=== PATIENT | male | born 1935 | race Caucasian/White ===

== ENCOUNTER 2016-06-20 09:35 | Inpatient (IN) | payer MEDICARE, BC ==
[~2016-06-20 09:35] MED LIST: Bisacodyl 5 MG Tab PO PRN; Lidocaine 1%/Sod Bicarbonate in NS 8.4% 1 ML Syringe IV PRN; Morphine 2 MG/ML Syringe IVPUSH PRN; Sodium Chloride 0.9% 10 ML Syringe FLUSH PRN
[2016-06-20] MEDS: Lactated Ringers 1,000 ML IV SCH ×2 (10:45→14:57)
--- NOTE | 2016-06-20 11:04 | PCM.PREANE ---
Preanesthetic Assessment - Anesthesia/Transfusion/Family Hx Anesthesia History: Prior Anesthesia Without Reaction Type of Anesthesia Reaction: Other (see below) (slow to wake up ) Family History of Anesthesia Reaction: No Transfusion History: No Prior Transfusion(s) Intubation History: Unknown - Review of Systems General: No Symptoms Pulmonary: No Symptoms Cardiovascular: No Symptoms Gastrointestinal: No symptoms Neurological: No Symptoms (stroke in past, no residual symptoms ) Other: Reports: Diabetes (BS 109 this AM ) - Physical Assessment NPO Status Date: 06/19/16 NPO Status Time: 22:30 Pulse: 62 O2 Sat by Pulse Oximetry: 96 Respiratory Rate: 16 Blood Pressure: 169/94 Temperature: 98.3 C Height: 1.78 m Weight: 89.811 kg ASA Class: 3 Mental Status: Alert & Oriented x3 Airway Class: Mallampati = 2 Dentition: Reports: Normal Dentition Thyro-Mental Finger Breadths: 3 Mouth Opening Finger Breadths: 5 ROM/Head Extension: Full Lungs: Clear to auscultation, Normal respiratory effort Cardiovascular: Regular Rate, Regular Rhythm - Lab Values: Laboratory Last Values APTT 40 SECONDS (22-36) H 06/15/16 13:55 POC Glucose 109 mg/dL (83-110) 06/20/16 10:53 MRSA (PCR) Negative 06/03/16 15:35 - Allergies Allergies/Adverse Reactions: Allergies Allergy/AdvReac Type Severity Reaction Status Date / Time No Known Allergies Allergy Verified 06/17/16 10:01 - Blood Blood Available: Yes Product(s) Available: PRBC (T&S drawn ) - Anesthesia Plan Beta Yamil: Metoprolol Med Last Dose Date: 06/20/16 Med Last Dose Time: 08:30 - Acknowledgements Anesthesia Type Planned: General Anesthesia Pt an Appropriate Candidate for the Planned Anesthesia: Yes Alternatives and Risks of Anesthesia Discussed w Pt/Guardian: Yes Pt/Guardian Understands and Agrees with Anesthesia Plan: Yes PreAnesthesia Questionnaire HEENT History: Reports: Impaired vision Other HEENT History: Wears glasses Cardiovascular History: Reports: Afib, High cholesterol, Hypertension Respiratory History: Reports: None Gastrointestinal History: Reports: None Genitourinary History: Reports: BPH, Other (see below) Other Genitourinary History: urinary retention 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 Musculoskeletal History: Reports: Osteoarthritis Other Musculoskeletal History: spinal stenosis Neurological History: Reports: CVA Psychiatric History: Reports: None Endocrine/Metabolic History: Reports: Diabetes, type II Hematologic History: Reports: Anemia Immunologic History: Reports: None Oncologic (Cancer) History: Reports: None Dermatologic History: Reports: None - Infectious Disease History Infectious Disease History: Reports: Chicken pox - Past Surgical History Head Surgeries/Procedures: Reports: None HEENT Surgical History: Reports: Cataract surgery, Naso-sinus surgery Cardiovascular Surgical History: Reports: None GI Surgical History: Endocrine Surgical History: Reports: None Musculoskeletal Surgical History: Reports: None, Other (see below) Other Musculoskeletal Surgeries/Procedures:: spinal stenosis surgery with hardware to low back - SUBSTANCE USE Smoking Status *Q: Never Smoker Tobacco Use Within Last Twelve Months: No Second Hand Smoke Exposure: No Days Per Week of Alcohol Use: 7 Number of Drinks Per Day: 1 Total Drinks Per Week: 7 Recreational Drug Use History: No - HOME MEDS Home Medications: Home Meds Ascorbate Calcium [Vitamin C] 500 mg PO DAILY 10/09/15 [History] Aspirin [Halfprin] 81 mg PO DAILY 10/09/15 [History] Dabigatran Etexilate Mesylate [Pradaxa] 150 mg PO BID 10/09/15 [History] Lisinopril 20 mg PO BID 10/09/15 [History] Multivit,Ther Iron,Ca,Fa & Min [Thera-M Caplet] 1 each PO DAILY 10/09/15 [ History] Tamsulosin [Flomax] 0.4 mg PO PCBREAKFAST 10/09/15 [History] glipiZIDE [Glucotrol] 5 mg PO DAILY 10/09/15 [History] Acetaminophen [Tylenol] 650 mg PO BID 10/21/15 [History] Diazepam [Valium] 5 mg PO Q6H PRN 06/17/16 [History] Hydrocodone/Acetaminophen [Dwarf 5-325] 1 tab PO Q4H PRN 06/17/16 [History] Metoprolol Tartrate [Metoprolol Tartrate] 12.5 mg PO DAILY 06/17/16 [History] Sennosides/Docusate Sodium [Senna-Docusate Sodium] 1 tab PO BID 06/17/16 [ History] - CURRENT (IN HOUSE) MEDS Current Meds: Current Medications Hydrocodone Bitart/Acetaminophen (Dwarf 325-5 Mg) 1 - 2 tab PO Q4H PRN PRN Reason: Pain Bisacodyl (Dulcolax) 5 mg PO DAILY PRN PRN Reason: Constipation Morphine Sulfate 8 mg/Epinephrine HCl 0.3 mg/Cefuroxime Sodium 750 mg/Ketorolac Tromethamine 30 mg/Sodium Chloride 27.9 ml 0 mg .XX ONETIME ONE Stop: 06/20/16 12:31 Docusate Sodium (Colace) 100 mg PO BID ERNIE Famotidine (Pepcid) 20 mg PO Q12H [facility] Lactated Ringer's (Ringers, Lactated) 1,000 mls @ 125 mls/hr IV ASDIRECTED [facility] Cefazolin Sodium/Dextrose 2 gm (/ Premix) 50 mls @ 100 mls/hr IV Q8H [facility] Stop: 06/20/16 23:14 Lidocaine/Sodium Bicarbonate (Buffered Lidocaine 1% In Ns 8.4%) 0.25 ml IV ONETIME PRN PRN Reason: Prior to IV Start Stop: 06/20/16 18:00 Magnesium Hydroxide (Milk Of Magnesia) 30 ml PO BID PRN PRN Reason: Constipation Morphine Sulfate (Morphine) 2 mg IVPUSH Q2H PRN PRN Reason: Breakthrough Pain Multivitamins (Thera) 1 each PO WITHBREAKFAST [facility] Naloxone HCl (Narcan) 0.1 mg IVPUSH Q5M PRN PRN Reason: Oversedation Stop: 06/20/16 14:16 Ondansetron HCl (Zofran) 4 mg IVPUSH Q6H PRN PRN Reason: Nausea/Vomiting Senna (Senna) 8.6 mg PO BID PRN PRN Reason: Constipation Sodium Chloride (Saline Flush) 10 ml FLUSH ASDIRECTED PRN PRN Reason: Keep Vein Open Stop: 06/20/16 18:00
[2016-06-20] MEDS ORDERED: fentaNYL 100 MCG/2 ML SDV IVPUSH PRN (11:16)
[2016-06-20] MEDS ORDERED: Ondansetron 4 MG/2 ML SDV IVPUSH PRN (11:16)
[2016-06-20] MEDS ORDERED: Bupivacaine 0.25% 30 ML SDV ONE (11:26)
[2016-06-20] MEDS ORDERED: ceFAZolin 1 GM Vial ONE ×2 (11:26→13:10)
[2016-06-20] MEDS ORDERED: Iodine/Sodium Iodide 2% Tincture 30 ML Bottle ONE (11:26)
--- NOTE | 2016-06-20 11:46 | PCM.CONS ---
H&P History of Present Illness - General Date of Service: 06/20/16 Admit Problem/Dx: Admission Diagnosis/Problem Admission Diagnosis/Problem Osteoarthritis of hip Source of Information: Patient, Family, Old records, Provider, RN notes reviewed History Limitations: Reports: Physical impairment - History of Present Illness Initial Comments - Free Text/Narative: This is an 83-year-old, white female, with past medical history of Afib on Pradaxa, Hypertension, HLD, OA/DJD, DM2, BPH, Hx/o Stroke, Hx/o Lumbar Spine Stenosis Surgery who underwent right total hip arthroplasty post operative day zero. Patient seems to be doing just fine. His pain is controlled. He denies any acute issues. However his blood pressure is considerably elevated with low heart rate in the 40s-60s. Hospital Medicine was consulted for postoperative care. Right Hip Pain Score (Numeric/FACES): 6 - Related Data Allergies/Adverse Reactions: Allergies Allergy/AdvReac Type Severity Reaction Status Date / Time No Known Allergies Allergy Verified 06/17/16 10:01 Home Medications: Home Meds Ascorbate Calcium [Vitamin C] 500 mg PO DAILY 10/09/15 [History] Aspirin [Halfprin] 81 mg PO DAILY 10/09/15 [History] Dabigatran Etexilate Mesylate [Pradaxa] 150 mg PO BID 10/09/15 [History] Lisinopril 20 mg PO BID 10/09/15 [History] Multivit,Ther Iron,Ca,Fa & Min [Thera-M Caplet] 1 each PO DAILY 10/09/15 [ History] Tamsulosin [Flomax] 0.4 mg PO PCBREAKFAST 10/09/15 [History] glipiZIDE [Glucotrol] 5 mg PO DAILY 10/09/15 [History] Acetaminophen [Tylenol] 650 mg PO BID 10/21/15 [History] Diazepam [Valium] 5 mg PO Q6H PRN 06/17/16 [History] Hydrocodone/Acetaminophen [[place] 5-325] 1 tab PO Q4H PRN 06/17/16 [History] Metoprolol Tartrate [Metoprolol Tartrate] 12.5 mg PO DAILY 06/17/16 [History] Sennosides/Docusate Sodium [Senna-Docusate Sodium] 1 tab PO BID 06/17/16 [ History] Enoxaparin [Lovenox] 80 mg SQ BID 06/20/16 [History] Past Medical History HEENT History: Reports: Impaired vision Other HEENT History: Wears glasses Cardiovascular History: Reports: Afib, High cholesterol, Hypertension Respiratory History: Reports: None Gastrointestinal History: Reports: None Genitourinary History: Reports: BPH, Other (see below) Other Genitourinary History: urinary retention 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 Musculoskeletal History: Reports: Osteoarthritis Other Musculoskeletal History: spinal stenosis Neurological History: Reports: CVA Psychiatric History: Reports: None Endocrine/Metabolic History: Reports: Diabetes, type II Hematologic History: Reports: Anemia Immunologic History: Reports: None Oncologic (Cancer) History: Reports: None Dermatologic History: Reports: None - Infectious Disease History Infectious Disease History: Reports: Chicken pox - Past Surgical History Head Surgeries/Procedures: Reports: None HEENT Surgical History: Reports: Cataract surgery, Naso-sinus surgery Cardiovascular Surgical History: Reports: None GI Surgical History: Endocrine Surgical History: Reports: None Musculoskeletal Surgical History: Reports: None, Other (see below) Other Musculoskeletal Surgeries/Procedures:: spinal stenosis surgery with hardware to low back Social & Family History - Family History Family Medical History: Noncontributory - Tobacco Use Smoking Status *Q: Never Smoker Packs/Tins Daily: 1.5 Used Tobacco, but Quit: Yes Month Tobacco Last Used: Around 1964 Second Hand Smoke Exposure: No - Alcohol Use Days Per Week of Alcohol Use: 7 Number of Drinks Per Day: 1 Total Drinks Per Week: 7 - Recreational Drug Use Recreational Drug Use: No - Living Situation & Occupation Living situation: Reports: , with spouse Occupation: retired H&P Review of Systems - Review of Systems: Review Of Systems: See Below General: Denies: fever, chills, malaise, weakness, fatigue HEENT: Reports: no symptoms Pulmonary: Denies: Shortness of Breath Cardiovascular: Denies: chest pain Gastrointestinal: Denies: Abdominal pain, Nausea, Vomiting Genitourinary: Reports: no symptoms Musculoskeletal: Reports: no symptoms Skin: Denies: cyanosis, rash Psychiatric: Denies: depression, anxiety, agitation, hallucinations Neurological: Reports: Difficulty Walking, Gait Disturbance. Denies: Confusion Hematologic/Lymphatic: Reports: no symptoms Immunologic: Reports: no symptoms Exam - Exam Exam: See Below - Vital Signs Vital Signs: Last Vital Signs Temp 98.3 C H 06/20/16 11:13 Pulse 62 06/20/16 11:13 Resp 16 06/20/16 11:13 BP 169/94 H 06/20/16 11:13 Pulse Ox 96 06/20/16 11:13 Weight: 89.811 kg - Exam General: alert, oriented, cooperative. No: mild distress HEENT: Conjunctiva clear, EOMI, Hearing intact, Mucosa moist & pink, Nares patent, Normal nasal septum, Posterior pharynx clear, Pupils equal, Pupils reactive Neck: supple, trachea midline, 2+ carotid pulse wo bruit, JVD Lungs: Clear to auscultation, Normal respiratory effort Cardiovascular: irregular rhythm, bradycardia, other (irregular rate) Abdomen: normal bowel sounds, soft. No: organomegaly (Male) Exam: Deferred Rectal (Males) Exam: Deferred Back Exam: normal inspection, decreased range of motion Extremities: normal inspection, normal pulses. No: clubbing, cyanosis, calf tenderness, edema Skin: warm, dry, intact Neuro Extensive - Mental Status: oriented x3, normal cognition, memory intact Neuro Extensive - Motor, Sensory, Reflexes: CN II-XII intact (limited but fairly intact), abnormal gait Psychiatric: alert, normal affect, normal mood - Patient Data Lab Results last 24 hrs: Laboratory Results - last 24 hr 06/20/16 Range/Units 10:53 POC Glucose 109 (83-110) mg/dL Consult PN Assessment/Plan POD#: 0 Procedures: Procedures ASSAY GLUCOSE BLOOD QUANT (10/08/15) ASSAY OF FREE THYROXINE (10/08/15) ASSAY OF MAGNESIUM (10/08/15) ASSAY OF TROPONIN QUANT (10/21/15) ASSAY THYROID STIM HORMONE (10/08/15) C-REACTIVE PROTEIN HS (10/08/15) CHEST X-RAY 1 VIEW FRONTAL (10/08/15) COMPLETE CBC AUTOMATED (10/08/15) COMPLETE CBC W/AUTO DIFF WBC (10/21/15) COMPREHEN METABOLIC PANEL (10/21/15) CT ABD & PELV W/CONTRAST (10/21/15) CT HEAD/BRAIN W/O DYE (10/08/15) CT THORAX W/DYE (10/21/15) DRAIN/INJ JOINT/BURSA W/O US (04/05/16) ELECTROCARDIOGRAM TRACING (10/21/15) EMERGENCY DEPT VISIT (10/21/15) EMERGENCY DEPT VISIT (09/10/15) EVALUATE SWALLOWING FUNCTION (10/08/15) EXTRACRANIAL BILAT STUDY (10/08/15) FIBRIN DEGRADATION QUANT (10/08/15) GAIT TRAINING THERAPY (10/08/15) GLUCOSE BLOOD TEST (10/08/15) GLYCOSYLATED HEMOGLOBIN TEST (10/08/15) HYDRATE IV INFUSION ADD-ON (10/21/15) HYDRATION IV INFUSION INIT (10/21/15) LIPID PANEL (10/08/15) METABOLIC PANEL TOTAL CA (10/08/15) MR ANGIOGRAPHY HEAD W/O DYE (10/08/15) MR ANGIOGRAPHY NECK W/DYE (10/08/15) MRI BRAIN STEM W/O & W/DYE (10/08/15) OT EVALUATION (10/08/15) PROTHROMBIN TIME (10/08/15) PT EVALUATION (10/08/15) ROUTINE VENIPUNCTURE (10/21/15) THERAPEUTIC ACTIVITIES (10/08/15) THROMBOPLASTIN TIME PARTIAL (10/08/15) TTE W/DOPPLER COMPLETE (10/08/15) URINALYSIS AUTO W/SCOPE (10/21/15) URINE CULTURE/COLONY COUNT (10/08/15) Problem List Initiated/Reviewed/Updated: Yes Plan: Assessment: Acute: Post-Operative Care State - Hypertensive with Bradycardic - Continue to monitor for hemodynamic instability S/p Right Total Hip Arthroplasty - Stable - DVT and Pain Management as per primary team Hx/o Chronic Knee Pain - Pain Management as per primary team Post Operative Bradycardia - HR in the 40-60s - Telemetry to monitor Post Operative Hypertension - Bumex 1mg IV x1 and Hydralazine 10 mg IVP x1 - Re-check Vitals in an hour Post-Operative Urinary Retention - Has hx/o BPH - Bumex 1 mg IVP, if no response will straight cath - Consider flomax/cardura Chronic: Atrial Fibrillation, HR controlled on Pradaxa HTN HLD OA/DJD DM2, BS controlled BPH Hx/o Stroke Hx/o Lumbar Spine Stenosis Surgery Plan: He is asymptomatic Routine AM labs No need for accu-check Continue home meds PT/OT consult IS q2 awake Thank you for the opportunity to participate in the management of this patient. Requesting Provider: Dr. Quiles Date Consult Requested: 06/20/16 Reason for Consult: Post-Operative Care Patient History Reviewed: Yes Admission H&P Reviewed: Yes Consult Result/Summary: Asymptomatic: Elevated BP and Slow Heart Rate
[2016-06-20] MEDS ORDERED: fentaNYL 100 MCG/2 ML SDV ONE (12:06)
[2016-06-20] MEDS ORDERED: Propofol 200 MG/20 ML SDV ONE (12:06)
[2016-06-20] MEDS ORDERED: Lidocaine 1% 4 ML ONE (12:07)
[2016-06-20] MEDS ORDERED: Rocuronium 50 MG/5 ML Vial ONE (12:08)
[2016-06-20] MEDS ORDERED: HYDROmorphone 0.5 MG/0.5 ML Syringe IVPUSH PRN (12:45)
[2016-06-20] MEDS ORDERED: Phenylephrine 1% 10 MG/ML SDV ONE (13:10)
[2016-06-20] MEDS ORDERED: Lactated Ringers 1,000 ML ONE (13:11)
[2016-06-20] MEDS ORDERED: Sodium Chloride 0.9% 100 ML ONE (13:11)
[2016-06-20] MEDS ORDERED: ePHEDrine/Normal Saline 25 MG/5 ML Syringe ONE (13:12)
[2016-06-20] MEDS ORDERED: HYDROmorphone 1 MG/ML Syringe ONE (13:21)
[2016-06-20] MEDS ORDERED: Ondansetron 4 MG/2 ML SDV ONE (13:34)
[2016-06-20] MEDS ORDERED: Neostigmine Methylsulfate 1 MG/ML 5 ML Syringe ONE (13:34)
[2016-06-20] MEDS ORDERED: Ketamine 500 mg/10 ML MDV ONE (13:45)
[2016-06-20] MEDS ORDERED: Diazepam 5 MG Tab PO PRN (13:48)
[2016-06-20] MEDS: Morphine 8 MG, EPINEPHrine 0.3 MG, Cefuroxime 750 MG, Ketorolac 30 MG, Sodium Chloride ... ONE ×10 (13:51→16:11)
[2016-06-20] MEDS ORDERED: Naloxone 0.4 MG/ML SDV IVPUSH PRN (14:00)
--- NOTE | 2016-06-20 14:39 | PCM.POSTAN ---
POST ANESTHESIA ASSESSMENT - MENTAL STATUS Mental Status: other (drowsy ) - VITAL SIGNS Pulse Rate: 79 SaO2: 98 Resp Rate: 11 Blood Pressure: 157/58 Temperature: 36.7 C - RESPIRATORY Respiratory Status: respiratory rate WNL, airway patent, O2 saturation stable - CARDIOVASCULAR CV Status: pulse rate WNL, blood pressure stable - GASTROINTESTINAL GI Status: no symptoms - PAIN Pain Score: 0 - POST OP HYDRATION Hydration Status: adequate & stable
--- NOTE | 2016-06-20 16:34 | CR ---
Pelvis and right hip: AP view of the pelvis was obtained as well as lateral view of the right hip. Right hip prosthesis is seen. Components are aligned. Soft tissue air is seen around the right hip compatible with recent surgical procedure. Previous lumbar spine surgery is noted. Joint space within the left hip is preserved. Vascular calcification is seen. Impression: 1. Satisfactory appearance of recently placed right hip prosthesis. 2. Other incidental findings as noted above. Diagnostic code #1
[2016-06-20] MEDS ORDERED: hydrALAZINE 20 MG/ML SDV IVPUSH ONE (16:40)
[2016-06-20] MEDS ORDERED: Bumetanide 1 MG/4 ML MDV IVPUSH ONE (16:40)
[2016-06-20] MEDS: Ondansetron 4 MG/2 ML SDV IVPUSH PRN (17:35)
[2016-06-20] MEDS ORDERED: Enoxaparin 80 MG/0.8 ML Syringe SUBCUT SCH (21:00)
[2016-06-20] MEDS ORDERED: Sennosides 8.6 MG Tab PO PRN (21:00)
[2016-06-20] MEDS ORDERED: Magnesium Hydroxide 400 MG/5 ML Susp 30 ML Cup PO PRN (21:00)
[2016-06-20] MEDS: ceFAZolin 2 GM in Premix Bag 1 BAG IV SCH (21:27)
[2016-06-20] MEDS: Docusate Sodium 100 MG Cap PO SCH (21:29)
[2016-06-20] MEDS: Dabigatran 75 MG Cap PO SCH (21:30)
[2016-06-20] MEDS: Famotidine 20 MG Tab PO SCH (21:30)
[2016-06-20] MEDS: Lisinopril 20 MG Tab PO SCH (21:30)
[2016-06-20] MEDS: Acetaminophen/HYDROcodone 325-5 MG Tab PO PRN (21:31)
[2016-06-21] MEDS: ceFAZolin 2 GM in Premix Bag 1 BAG IV SCH ×2 (04:07→12:22)
[2016-06-21] MEDS ORDERED: Multivitamins,Therapeutic Tab PO SCH (07:00)
[2016-06-21] MEDS: Acetaminophen/HYDROcodone 325-5 MG Tab PO PRN ×3 (07:48→18:48)
--- NOTE | 2016-06-21 08:19 | PCM48HPAN ---
Post Anesthesia Note - EVALUATION WITHIN 48HRS OF ANESTHETIC Vital Signs in Normal Range: Yes Patient Participated in Evaluation: Yes Respiratory Function Stable: Yes Airway Patent: Yes Cardiovascular Function Stable: Yes Hydration Status Stable: Yes Pain Control Satisfactory: Yes Nausea and Vomiting Control Satisfactory: Yes Mental Status Recovered: Yes - COMMENTS/OBSERVATIONS Free Text/Narrative:: Patient sitting up, and doing well. Patient denies any c/o at this time.
[2016-06-21] MEDS ORDERED: Metoprolol Tartrate 25 MG Tab PO SCH (09:00)
--- NOTE | 2016-06-21 09:02 | PCM.CONSN ---
- General Info Date of Service: 06/21/16 Admission Dx/Problem (Free Text): Admission Diagnosis/Problem Admission Diagnosis/Problem Osteoarthritis of hip POD #[address] Quiles Was hypertensive and bradycardic out of surgery to the floor yesterday; recovered last evening and VSS since around 1800 last night. He is off of oxygen , doing well. Pain controlled. Eating without n/v. He was straight cathed x 2 last night, once with 1,000cc out. He did receive bumex x 1 IV and flomax last evening. Functional Status: Reports: pain controlled, tolerating diet, ambulating. Denies: urinating (retention) - Review of Systems General: Reports: No Symptoms HEENT: Reports: no symptoms Pulmonary: Reports: no symptoms Cardiovascular: Reports: No Symptoms Gastrointestinal: Reports: No symptoms Genitourinary: Reports: other (urinary retention) Musculoskeletal: Reports: leg pain Skin: Reports: no symptoms Neurological: Reports: No Symptoms Psychiatric: Reports: no symptoms - Patient Data Vitals - most recent: Last Vital Signs Temp 97.7 F 06/21/16 08:05 Pulse 93 06/21/16 08:05 Resp 16 06/21/16 08:05 BP 102/59 L 06/21/16 08:05 Pulse Ox 97 06/21/16 08:05 Weight - most recent: 191 lb 1.6 oz I&O - last 24 hours: Intake & Output 06/20/16 06/21/16 06/21/16 22:59 06:59 14:59 Intake Total 250 750 Output Total 950 1250 Balance -700 -500 Lab Results last 24 hrs: Laboratory Results - last 24 hr 06/20/16 06/20/16 06/21/16 Range/Units 10:40 10:53 06:10 WBC 12.92 H (4.23-9.07) K/mm3 RBC 4.03 L (4.63-6.08) M/mm3 Hgb 11.9 L (13.7-17.5) gm/L Hct 36.3 L (40.1-51.0) % MCV 90.1 (79.0-92.2) fl MCH 29.5 (25.7-32.2) pg MCHC 32.8 (32.2-35.5) g/dl RDW Std Deviation 54.2 H (35.1-43.9) fL Plt Count 297 (163-337) K/mm3 MPV 10.3 (9.4-12.3) fl Neut % (Auto) 82.1 H (34.0-67.9) % Lymph % (Auto) 8.0 L (21.8-53.1) % [place] % (Auto) 9.6 (5.3-12.2) % Eos % (Auto) 0 L (0.8-7.0) Baso % (Auto) 0.1 (0.1-1.2) % Neut # (Auto) 10.62 H (1.78-5.38) K/mm3 Lymph # (Auto) 1.03 L (1.32-3.57) K/mm3 [place] # (Auto) 1.24 H (0.30-0.82) K/mm3 Eos # (Auto) 0.00 L (0.04-0.54) K/mm3 Baso # (Auto) 0.01 (0.01-0.08) K/mm3 Manual Slide Review Normal smear Sodium (136-145) mEq/L Potassium (3.5-5.1) mEq/L Chloride (98-107) mEq/L Carbon Dioxide (21-32) mEq/L Anion Gap (5-15) BUN (7-18) mg/dL Creatinine (0.7-1.3) mg/dL Est Cr Clr Drug Dosing mL/min Estimated GFR (MDRD) (>60) mL/min BUN/Creatinine Ratio (14-18) Glucose (83-115) mg/dL POC Glucose 109 (83-110) mg/dL Calcium (8.5-10.1) mg/dL Total Bilirubin (0.2-1.0) mg/dL AST (15-37) U/L ALT (16-63) U/L Alkaline Phosphatase (46-116) U/L Total Protein (6.4-8.2) g/dl Albumin (3.4-5.0) g/dl Globulin gm/dL Albumin/Globulin Ratio (1-2) Blood Type A POSITIVE Gel Antibody Screen Negative 06/21/16 Range/Units 06:10 WBC (4.23-9.07) K/mm3 RBC (4.63-6.08) M/mm3 Hgb (13.7-17.5) gm/L Hct (40.1-51.0) % MCV (79.0-92.2) fl MCH (25.7-32.2) pg MCHC (32.2-35.5) g/dl RDW Std Deviation (35.1-43.9) fL Plt Count (163-337) K/mm3 MPV (9.4-12.3) fl Neut % (Auto) (34.0-67.9) % Lymph % (Auto) (21.8-53.1) % [place] % (Auto) (5.3-12.2) % Eos % (Auto) (0.8-7.0) Baso % (Auto) (0.1-1.2) % Neut # (Auto) (1.78-5.38) K/mm3 Lymph # (Auto) (1.32-3.57) K/mm3 [place] # (Auto) (0.30-0.82) K/mm3 Eos # (Auto) (0.04-0.54) K/mm3 Baso # (Auto) (0.01-0.08) K/mm3 Manual Slide Review Sodium 138 (136-145) mEq/L Potassium 4.1 (3.5-5.1) mEq/L Chloride 101 (98-107) mEq/L Carbon Dioxide 25 (21-32) mEq/L Anion Gap 16.1 H (5-15) BUN 18 (7-18) mg/dL Creatinine 1.3 (0.7-1.3) mg/dL Est Cr Clr Drug Dosing 46.01 mL/min Estimated GFR (MDRD) 53 (>60) mL/min BUN/Creatinine Ratio 13.8 L (14-18) Glucose 165 H (83-115) mg/dL POC Glucose (83-110) mg/dL Calcium 8.7 (8.5-10.1) mg/dL Total Bilirubin 0.5 (0.2-1.0) mg/dL AST 31 (15-37) U/L ALT 35 (16-63) U/L Alkaline Phosphatase 89 (46-116) U/L Total Protein 6.6 (6.4-8.2) g/dl Albumin 3.2 L (3.4-5.0) g/dl Globulin 3.4 gm/dL Albumin/Globulin Ratio 0.9 L (1-2) Blood Type Gel Antibody Screen Med Orders - Current: Current Medications Hydrocodone Bitart/Acetaminophen ([place] 325-5 Mg) 1 - 2 tab PO Q4H PRN PRN Reason: Pain Last Admin: 06/21/16 07:48 Dose: 2 tab Ascorbic Acid (Vitamin C) 500 mg PO DAILY [facility] Aspirin (Halfprin) 81 mg PO DAILY [facility] Bisacodyl (Dulcolax) 5 mg PO DAILY PRN PRN Reason: Constipation Dabigatran (Pradaxa) 150 mg PO BID [facility] Last Admin: 06/20/16 21:30 Dose: 150 mg Diazepam (Valium.) 5 mg PO Q6H PRN PRN Reason: muscle spasms Docusate Sodium (Colace) 100 mg PO BID [facility] Last Admin: 06/20/16 21:29 Dose: Not Given Famotidine (Pepcid) 20 mg PO Q12H [facility] Last Admin: 06/20/16 21:30 Dose: 20 mg Glipizide (Glucotrol) 5 mg PO DAILY [facility] Cefazolin Sodium/Dextrose 2 gm (/ Premix) 50 mls @ 100 mls/hr IV Q8H [facility] Stop: 06/21/16 11:59 Last Admin: 06/21/16 04:07 Dose: 100 mls/hr Lisinopril (Prinivil) 20 mg PO BID [facility] Last Admin: 06/20/16 21:30 Dose: 20 mg Magnesium Hydroxide (Milk Of Magnesia) 30 ml PO BID PRN PRN Reason: Constipation Metoprolol Tartrate (Lopressor) 12.5 mg PO DAILY [facility] Morphine Sulfate (Morphine) 2 mg IVPUSH Q2H PRN PRN Reason: Breakthrough Pain Ondansetron HCl (Zofran) 4 mg IVPUSH Q6H PRN PRN Reason: Nausea/Vomiting Last Admin: 06/20/16 17:35 Dose: 4 mg Senna (Senna) 8.6 mg PO BID PRN PRN Reason: Constipation Senna/Docusate Sodium (Senna Plus) 1 tab PO BID [facility] Last Admin: 06/20/16 21:30 Dose: Not Given Tamsulosin HCl (Flomax) 0.4 mg PO PCBREAKFAST [facility] Vit A/Vit C/Vit E/Selen/Cu/Zn/Lutei (Icaps Mv) 1 tab PO DAILY [facility] Discontinued Medications Bumetanide (Bumex) 1 mg IVPUSH ONETIME ONE Stop: 06/20/16 16:41 Last Admin: 06/20/16 17:13 Dose: 1 mg Bupivacaine HCl (Marcaine 0.25%) Confirm Administered Dose 30 ml .ROUTE .STK- MED ONE Stop: 06/20/16 11:27 Last Admin: 06/20/16 13:53 Dose: 30 ml Cefazolin Sodium (Ancef) Confirm Administered Dose 2 gm .ROUTE .STK-MED ONE Stop: 06/20/16 11:27 Last Admin: 06/20/16 13:47 Dose: 2 gm Cefazolin Sodium (Ancef) Confirm Administered Dose 2 gm .ROUTE .STK-MED ONE Stop: 06/20/16 13:11 Morphine Sulfate 8 mg/Epinephrine HCl 0.3 mg/Cefuroxime Sodium 750 mg/Ketorolac Tromethamine 30 mg/Sodium Chloride 27.9 ml 0 mg .XX ONETIME ONE Stop: 06/20/16 12:31 Last Admin: 06/20/16 16:11 Dose: Not Given Enoxaparin Sodium (Lovenox) 80 mg SUBCUT BID ERNIE Ephedrine Sulfate (Ephedrine In Ns) Confirm Administered Dose 25 mg .ROUTE .STK- MED ONE Stop: 06/20/16 13:13 Fentanyl (Sublimaze) 50 mcg IVPUSH Q5M PRN PRN Reason: Pain Stop: 06/20/16 18:00 Fentanyl (Sublimaze) Confirm Administered Dose 100 mcg .ROUTE .STK-MED ONE Stop: 06/20/16 12:07 Glycopyrrolate () Confirm Administered Dose 1 mg .ROUTE .STK-MED ONE Stop: 06/20/16 13:35 Hydralazine HCl (Apresoline) 10 mg IVPUSH ONETIME ONE Stop: 06/20/16 16:41 Last Admin: 06/20/16 17:13 Dose: 10 mg Hydromorphone HCl (Dilaudid) 0.5 mg IVPUSH Q15M PRN PRN Reason: severe pain Stop: 06/20/16 13:01 Hydromorphone HCl (Dilaudid) Confirm Administered Dose 1 mg .ROUTE .STK-MED ONE Stop: 06/20/16 13:22 Lactated Ringer's (Ringers, Lactated) 1,000 mls @ 125 mls/hr IV ASDIRECTED [facility] Last Admin: 06/20/16 14:57 Dose: 125 mls/hr Lidocaine HCl (Xylocaine-Mpf 1%) Confirm Administered Dose 4 mls @ as directed .ROUTE .STK-MED ONE Stop: 06/20/16 12:08 Sodium Chloride (Normal Saline) Confirm Administered Dose 100 mls @ as directed .ROUTE .STK-MED ONE Stop: 06/20/16 13:12 Lactated Ringer's (Ringers, Lactated) Confirm Administered Dose 1,000 mls @ as directed .ROUTE .STK-MED ONE Stop: 06/20/16 13:12 Iodine (Iodine 2% Mild Tincture) Confirm Administered Dose 30 ml .ROUTE .STK- MED ONE Stop: 06/20/16 11:27 Last Admin: 06/20/16 13:41 Dose: 18 ml Ketamine HCl (Ketalar) Confirm Administered Dose 500 mg .ROUTE .STK-MED ONE Stop: 06/20/16 13:46 Lidocaine/Sodium Bicarbonate (Buffered Lidocaine 1% In Ns 8.4%) 0.25 ml IV ONETIME PRN PRN Reason: Prior to IV Start Stop: 06/20/16 18:00 Last Admin: 06/20/16 10:44 Dose: 0.25 ml Multivitamins (Thera) 1 each PO WITHBREAKFAST [facility] Naloxone HCl (Narcan) 0.1 mg IVPUSH Q5M PRN PRN Reason: Oversedation Stop: 06/20/16 14:16 Neostigmine Methylsulfate (Neostigmine) Confirm Administered Dose 5 mg .ROUTE .STK-MED ONE Stop: 06/20/16 13:35 Ondansetron HCl (Zofran) 4 mg IVPUSH ONETIME PRN PRN Reason: Nausea/Vomiting Stop: 06/20/16 18:00 Ondansetron HCl (Zofran) Confirm Administered Dose 4 mg .ROUTE .STK-MED ONE Stop: 06/20/16 13:35 Phenylephrine HCl (Lonnie-Synephrine) Confirm Administered Dose 10 mg .ROUTE .STK- MED ONE Stop: 06/20/16 13:11 Propofol (Diprivan 20 Ml) Confirm Administered Dose 200 mg .ROUTE .STK-MED ONE Stop: 06/20/16 12:07 Rocuronium [place] (Zemuron) Confirm Administered Dose 50 mg .ROUTE .STK-MED ONE Stop: 06/20/16 12:09 Sodium Chloride (Saline Flush) 10 ml FLUSH ASDIRECTED PRN PRN Reason: Keep Vein Open Stop: 06/20/16 18:00 Tranexamic Acid (Cyklokapron) Confirm Administered Dose 1,000 mg .ROUTE .STK- MED ONE Stop: 06/20/16 11:27 Last Admin: 06/20/16 13:57 Dose: 1,000 mg - Exam Quality Assessment: DVT prophylaxis General: alert, oriented, cooperative, no acute distress HEENT: Pupils equal, Pupils reactive, EOMI, Mucous membr. moist/pink Neck: supple Lungs: Clear to auscultation, Normal respiratory effort Cardiovascular: Irregular Rhythm Abdomen: bowel sounds present, soft, no tenderness, no distension (Male) Exam: Deferred Extremities: no edema, no calf tenderness, other (teds and scd's bilat) Peripheral Pulses: 1+: dorsalis pedis (L), dorsalis pedis (R) Skin: warm, dry Neurological: no new focal deficit Psy/Mental Status: alert, normal affect, normal mood Consult PN Assessment/Plan POD#: 1 Procedures: Procedures ASSAY GLUCOSE BLOOD QUANT (10/08/15) ASSAY OF FREE THYROXINE (10/08/15) ASSAY OF MAGNESIUM (10/08/15) ASSAY OF TROPONIN QUANT (10/21/15) ASSAY THYROID STIM HORMONE (10/08/15) C-REACTIVE PROTEIN HS (10/08/15) CHEST X-RAY 1 VIEW FRONTAL (10/08/15) COMPLETE CBC AUTOMATED (10/08/15) COMPLETE CBC W/AUTO DIFF WBC (10/21/15) COMPREHEN METABOLIC PANEL (10/21/15) CT ABD & PELV W/CONTRAST (10/21/15) CT HEAD/BRAIN W/O DYE (10/08/15) CT THORAX W/DYE (10/21/15) DRAIN/INJ JOINT/BURSA W/O US (04/05/16) ELECTROCARDIOGRAM TRACING (10/21/15) EMERGENCY DEPT VISIT (10/21/15) EMERGENCY DEPT VISIT (09/10/15) EVALUATE SWALLOWING FUNCTION (10/08/15) EXTRACRANIAL BILAT STUDY (10/08/15) FIBRIN DEGRADATION QUANT (10/08/15) GAIT TRAINING THERAPY (10/08/15) GLUCOSE BLOOD TEST (10/08/15) GLYCOSYLATED HEMOGLOBIN TEST (10/08/15) HYDRATE IV INFUSION ADD-ON (10/21/15) HYDRATION IV INFUSION INIT (10/21/15) LIPID PANEL (10/08/15) METABOLIC PANEL TOTAL CA (10/08/15) MR ANGIOGRAPHY HEAD W/O DYE (10/08/15) MR ANGIOGRAPHY NECK W/DYE (10/08/15) MRI BRAIN STEM W/O & W/DYE (10/08/15) OT EVALUATION (10/08/15) PROTHROMBIN TIME (10/08/15) PT EVALUATION (10/08/15) ROUTINE VENIPUNCTURE (10/21/15) THERAPEUTIC ACTIVITIES (10/08/15) THROMBOPLASTIN TIME PARTIAL (10/08/15) TTE W/DOPPLER COMPLETE (10/08/15) URINALYSIS AUTO W/SCOPE (10/21/15) URINE CULTURE/COLONY COUNT (10/08/15) (1) S/P total hip arthroplasty SNOMED Code(s): 502204483487, 924273516054 Code(s): Z96.649 - PRESENCE OF UNSPECIFIED ARTIFICIAL HIP JOINT Priority: High Current Visit: Yes Qualifiers: Laterality: right Qualified Code(s): Z96.641 - Presence of right artificial hip joint (2) Osteoarthritis SNOMED Code(s): 470093046 Code(s): M19.90 - UNSPECIFIED OSTEOARTHRITIS, UNSPECIFIED SITE Priority: High Current Visit: Yes Qualifiers: Osteoarthritis location: hip Osteoarthritis type: primary Laterality: right Qualified Code(s): M16.11 - Unilateral primary osteoarthritis, right hip (3) Urinary retention SNOMED Code(s): 530358853 Code(s): R33.9 - RETENTION OF URINE, UNSPECIFIED Priority: High Current Visit: Yes (4) Afib SNOMED Code(s): 30368157 Code(s): I48.91 - UNSPECIFIED ATRIAL FIBRILLATION Priority: Medium Current Visit: No Qualifiers: Atrial fibrillation type: chronic Qualified Code(s): I48.2 - Chronic atrial fibrillation (5) HTN (hypertension) SNOMED Code(s): 72847561 Code(s): I10 - ESSENTIAL (PRIMARY) HYPERTENSION Priority: Medium Current Visit: No Qualifiers: Hypertension type: essential hypertension Qualified Code(s): I10 - Essential (primary) hypertension (6) HLD (hyperlipidemia) SNOMED Code(s): 31568530 Code(s): E78.5 - HYPERLIPIDEMIA, UNSPECIFIED Priority: Medium Current Visit: No Qualifiers: Hyperlipidemia type: unspecified Qualified Code(s): E78.5 - Hyperlipidemia , unspecified (7) Type 2 diabetes mellitus SNOMED Code(s): 60940100 Code(s): E11.9 - TYPE 2 DIABETES MELLITUS WITHOUT COMPLICATIONS Priority: Medium Current Visit: No Qualifiers: Diabetes mellitus complication status: without complication Diabetes mellitus fdc insulin use: without fdc use Qualified Code(s): E11.9 - Type 2 diabetes mellitus without complications (8) History of CVA (cerebrovascular accident) SNOMED Code(s): 187169728 Code(s): Z86.73 - PRSNL HX OF TIA (TIA), AND CEREB INFRC W/O RESID DEFICITS Priority: Medium Current Visit: No (9) Hx of lumbosacral spine surgery SNOMED Code(s): 319020645 Code(s): Z98.890 - OTHER SPECIFIED POSTPROCEDURAL STATES Priority: Medium Current Visit: No Problem List Initiated/Reviewed/Updated: Yes Plan: I/P: S/P Rt YANET with Dr. Quiles: POD #1 -Pain management and DVT prophyax per primary team, Orthopedics -PT/OT -IS, C&DB -HGB 11.9 today -VSS now; postop bradycardia with hypertension- resolved last evening Urinary retention -Flomax and diuretic dose last evening; straight cath x 2 last evening -Cont close monitoring -Consider DC with prophylactic abx to prevent AUTI postoperative related to retention Chronic conditions- stable and cont home meds/tx A-Fib on pradaxa HTN HLD DM- sugars stable- 165 Hx of BPH now with postop urinary retention- recommend dc home with flomax BID x 2-4 weeks and follow up with PCP/Urology Hx CVA Hx lumbar surgery for stenosis Other: GI prophylax CM/SW for dc planning OK for dc home today if voiding spontaneously Patient is Full Code
[2016-06-21] MEDS: Docusate Sodium 100 MG Cap PO SCH ×2 (09:48→22:03)
[2016-06-21] MEDS: Tamsulosin 0.4 MG Cap.ER PO SCH ×2 (09:49→18:46)
[2016-06-21] MEDS: Lisinopril 20 MG Tab PO SCH ×2 (09:49→22:06)
[2016-06-21] MEDS: Multivitamins with Minerals/Folic Acid/Lutein/Zeaxanth Tab PO SCH (09:49)
[2016-06-21] MEDS: Aspirin 81 MG Tab.EC PO SCH (09:50)
[2016-06-21] MEDS: Famotidine 20 MG Tab PO SCH ×2 (09:50→22:02)
[2016-06-21] MEDS: Dabigatran 75 MG Cap PO SCH ×2 (09:51→22:02)
[2016-06-21] MEDS: glipiZIDE 5 MG Tab PO SCH (09:51)
[2016-06-21] MEDS: Ascorbic Acid 500 MG Tab PO SCH (09:51)
[2016-06-21] MEDS ORDERED: Tamsulosin 0.4 MG Cap.ER PO SCH (10:00)
[2016-06-21] MEDS ORDERED: Pneumococcal 13-Valent Conjugate Vaccine 0.5 ML Syringe IM ONE (13:40)
[2016-06-21] MEDS ORDERED: Bumetanide 1 MG/4 ML MDV IVPUSH ONE (14:15)
[2016-06-21] MEDS: Metoprolol Tartrate 25 MG Tab PO SCH (22:04)
[2016-06-22] MEDS ORDERED: Bumetanide 1 MG/4 ML MDV IVPUSH ONE (05:00)
[2016-06-22] MEDS: Acetaminophen/HYDROcodone 325-5 MG Tab PO PRN ×2 (07:03→18:16)
--- NOTE | 2016-06-22 08:44 | PCM.CONSN ---
- General Info Date of Service: 06/22/16 Admission Dx/Problem (Free Text): Admission Diagnosis/Problem Admission Diagnosis/Problem Osteoarthritis of hip POD #[address] Etta MCCLURE; no further bradycardia or HTN noted since return from PACU. Voiding independently this morning Labs pending at time of note- CBC, BMP and UA- obtained for recurrent urinary retention Working with PT, slow movements but doing ok Functional Status: Reports: pain controlled, tolerating diet, ambulating, urinating. Denies: new symptoms - Review of Systems General: Reports: No Symptoms HEENT: Reports: no symptoms Pulmonary: Reports: no symptoms Cardiovascular: Reports: No Symptoms Gastrointestinal: Reports: No symptoms Genitourinary: Reports: no symptoms Musculoskeletal: Reports: leg pain Skin: Reports: no symptoms Neurological: Reports: Other (hx of CVA; slowed speech and slowed movmements but chronic) Psychiatric: Reports: no symptoms - Patient Data Vitals - most recent: Last Vital Signs Temp 98.1 F 06/22/16 08:00 Pulse 86 06/22/16 08:00 Resp 16 06/22/16 08:00 BP 110/58 L 06/22/16 08:00 Pulse Ox 95 06/22/16 08:00 Weight - most recent: 188 lb 6.4 oz I&O - last 24 hours: Intake & Output 06/21/16 06/22/16 06/22/16 22:59 06:59 14:59 Intake Total 810 650 Output Total 350 200 Balance 460 450 Med Orders - Current: Current Medications Hydrocodone Bitart/Acetaminophen ([place] 325-5 Mg) 1 - 2 tab PO Q4H PRN PRN Reason: Pain Last Admin: 06/22/16 07:03 Dose: 2 tab Ascorbic Acid (Vitamin C) 500 mg PO DAILY [facility] Last Admin: 06/21/16 09:51 Dose: 500 mg Aspirin (Halfprin) 81 mg PO DAILY [facility] Last Admin: 06/21/16 09:50 Dose: 81 mg Bisacodyl (Dulcolax) 5 mg PO DAILY PRN PRN Reason: Constipation Dabigatran (Pradaxa) 150 mg PO BID [facility] Last Admin: 06/21/16 22:02 Dose: 150 mg Diazepam (Valium.) 5 mg PO Q6H PRN PRN Reason: muscle spasms Docusate Sodium (Colace) 100 mg PO BID [facility] Last Admin: 06/21/16 22:03 Dose: 100 mg Doxazosin Mesylate (Cardura) 4 mg PO DAILY [facility] Famotidine (Pepcid) 20 mg PO Q12H [facility] Last Admin: 06/21/16 22:02 Dose: 20 mg Glipizide (Glucotrol) 5 mg PO DAILY [facility] Last Admin: 06/21/16 09:51 Dose: 5 mg Lisinopril (Prinivil) 20 mg PO BID [facility] Last Admin: 06/21/16 22:06 Dose: 20 mg Magnesium Hydroxide (Milk Of Magnesia) 30 ml PO BID PRN PRN Reason: Constipation Metoprolol Tartrate (Lopressor) 12.5 mg PO BID [facility] Last Admin: 06/21/16 22:04 Dose: 12.5 mg Morphine Sulfate (Morphine) 2 mg IVPUSH Q2H PRN PRN Reason: Breakthrough Pain Ondansetron HCl (Zofran) 4 mg IVPUSH Q6H PRN PRN Reason: Nausea/Vomiting Last Admin: 06/20/16 17:35 Dose: 4 mg Senna (Senna) 8.6 mg PO BID PRN PRN Reason: Constipation Senna/Docusate Sodium (Senna Plus) 1 tab PO BID [facility] Last Admin: 06/21/16 22:03 Dose: 1 tab [facility] Last Admin: 06/21/16 18:46 Dose: 0.4 mg Vit A/Vit C/Vit E/Selen/Cu/Zn/Lutei (Icaps Mv) 1 tab PO DAILY [facility] Last Admin: 06/21/16 09:49 Dose: 1 tab Discontinued Medications Bumetanide (Bumex) 1 mg IVPUSH ONETIME ONE Stop: 06/20/16 16:41 Last Admin: 06/20/16 17:13 Dose: 1 mg Bumetanide (Bumex) 0.25 mg IVPUSH ONETIME ONE Stop: 06/21/16 14:16 Last Admin: 06/21/16 14:57 Dose: 0.25 mg Bumetanide (Bumex) 1 mg IVPUSH ONETIME ONE Stop: 06/22/16 05:01 Last Admin: 06/22/16 04:06 Dose: 1 mg Bupivacaine HCl (Marcaine 0.25%) Confirm Administered Dose 30 ml .ROUTE .STK- MED ONE Stop: 06/20/16 11:27 Last Admin: 06/20/16 13:53 Dose: 30 ml Cefazolin Sodium (Ancef) Confirm Administered Dose 2 gm .ROUTE .STK-MED ONE Stop: 06/20/16 11:27 Last Admin: 06/20/16 13:47 Dose: 2 gm Cefazolin Sodium (Ancef) Confirm Administered Dose 2 gm .ROUTE .STK-MED ONE Stop: 06/20/16 13:11 Morphine Sulfate 8 mg/Epinephrine HCl 0.3 mg/Cefuroxime Sodium 750 mg/Ketorolac Tromethamine 30 mg/Sodium Chloride 27.9 ml 0 mg .XX ONETIME ONE Stop: 06/20/16 12:31 Last Admin: 06/20/16 16:11 Dose: Not Given Enoxaparin Sodium (Lovenox) 80 mg SUBCUT BID ERNIE Ephedrine Sulfate (Ephedrine In Ns) Confirm Administered Dose 25 mg .ROUTE .STK- MED ONE Stop: 06/20/16 13:13 Fentanyl (Sublimaze) 50 mcg IVPUSH Q5M PRN PRN Reason: Pain Stop: 06/20/16 18:00 Fentanyl (Sublimaze) Confirm Administered Dose 100 mcg .ROUTE .STK-MED ONE Stop: 06/20/16 12:07 Glycopyrrolate () Confirm Administered Dose 1 mg .ROUTE .STK-MED ONE Stop: 06/20/16 13:35 Hydralazine HCl (Apresoline) 10 mg IVPUSH ONETIME ONE Stop: 06/20/16 16:41 Last Admin: 06/20/16 17:13 Dose: 10 mg Hydromorphone HCl (Dilaudid) 0.5 mg IVPUSH Q15M PRN PRN Reason: severe pain Stop: 06/20/16 13:01 Hydromorphone HCl (Dilaudid) Confirm Administered Dose 1 mg .ROUTE .STK-MED ONE Stop: 06/20/16 13:22 Lactated Ringer's (Ringers, Lactated) 1,000 mls @ 125 mls/hr IV ASDIRECTED ERNIE Last Admin: 06/20/16 14:57 Dose: 125 mls/hr Cefazolin Sodium/Dextrose 2 gm (/ Premix) 50 mls @ 100 mls/hr IV Q8H [facility] Stop: 06/21/16 11:59 Last Admin: 06/21/16 12:22 Dose: 100 mls/hr Lidocaine HCl (Xylocaine-Mpf 1%) Confirm Administered Dose 4 mls @ as directed .ROUTE .STK-MED ONE Stop: 06/20/16 12:08 Sodium Chloride (Normal Saline) Confirm Administered Dose 100 mls @ as directed .ROUTE .STK-MED ONE Stop: 06/20/16 13:12 Lactated Ringer's (Ringers, Lactated) Confirm Administered Dose 1,000 mls @ as directed .ROUTE .STK-MED ONE Stop: 06/20/16 13:12 Iodine (Iodine 2% Mild Tincture) Confirm Administered Dose 30 ml .ROUTE .STK- MED ONE Stop: 06/20/16 11:27 Last Admin: 06/20/16 13:41 Dose: 18 ml Ketamine HCl (Ketalar) Confirm Administered Dose 500 mg .ROUTE .STK-MED ONE Stop: 06/20/16 13:46 Lidocaine/Sodium Bicarbonate (Buffered Lidocaine 1% In Ns 8.4%) 0.25 ml IV ONETIME PRN PRN Reason: Prior to IV Start Stop: 06/20/16 18:00 Last Admin: 06/20/16 10:44 Dose: 0.25 ml Metoprolol Tartrate (Lopressor) 12.5 mg PO DAILY [facility] Last Admin: 06/21/16 09:50 Dose: 12.5 mg Multivitamins (Thera) 1 each PO WITHBREAKFAST [facility] Naloxone HCl (Narcan) 0.1 mg IVPUSH Q5M PRN PRN Reason: Oversedation Stop: 06/20/16 14:16 Neostigmine Methylsulfate (Neostigmine) Confirm Administered Dose 5 mg .ROUTE .STK-MED ONE Stop: 06/20/16 13:35 Ondansetron HCl (Zofran) 4 mg IVPUSH ONETIME PRN PRN Reason: Nausea/Vomiting Stop: 06/20/16 18:00 Ondansetron HCl (Zofran) Confirm Administered Dose 4 mg .ROUTE .STK-MED ONE Stop: 06/20/16 13:35 Phenylephrine HCl (Lonnie-Synephrine) Confirm Administered Dose 10 mg .ROUTE .STK- MED ONE Stop: 06/20/16 13:11 Pneumococcal 13-Valent Conj Vacc (Prevnar 13) 0.5 ml IM .ONCE ONE Stop: 06/21/16 13:41 Propofol (Diprivan 20 Ml) Confirm Administered Dose 200 mg .ROUTE .STK-MED ONE Stop: 06/20/16 12:07 Rocuronium [place] (Zemuron) Confirm Administered Dose 50 mg .ROUTE .STK-MED ONE Stop: 06/20/16 12:09 Sodium Chloride (Saline Flush) 10 ml FLUSH ASDIRECTED PRN PRN Reason: Keep Vein Open Stop: 06/20/16 18:00 Tamsulosin HCl (Flomax) 0.4 mg PO PCBREAKFAST ERNIE Tranexamic Acid (Cyklokapron) Confirm Administered Dose 1,000 mg .ROUTE .STK- MED ONE Stop: 06/20/16 11:27 Last Admin: 06/20/16 13:57 Dose: 1,000 mg - Exam Quality Assessment: DVT prophylaxis General: alert, oriented, cooperative, no acute distress HEENT: Pupils equal, Pupils reactive, EOMI, Mucous membr. moist/pink Neck: supple Lungs: Clear to auscultation, Normal respiratory effort Cardiovascular: Irregular Rhythm Abdomen: bowel sounds present, soft, no tenderness, no distension (Male) Exam: Deferred Extremities: no edema, no calf tenderness, other (teds) Peripheral Pulses: 1+: dorsalis pedis (L), dorsalis pedis (R) Skin: warm, dry, intact Neurological: no new focal deficit, other (slowed speech and movements ) Psy/Mental Status: alert, normal affect, normal mood Consult PN Assessment/Plan POD#: 2 Procedures: Procedures ASSAY GLUCOSE BLOOD QUANT (10/08/15) ASSAY OF FREE THYROXINE (10/08/15) ASSAY OF MAGNESIUM (10/08/15) ASSAY OF TROPONIN QUANT (10/21/15) ASSAY THYROID STIM HORMONE (10/08/15) C-REACTIVE PROTEIN HS (10/08/15) CHEST X-RAY 1 VIEW FRONTAL (10/08/15) COMPLETE CBC AUTOMATED (10/08/15) COMPLETE CBC W/AUTO DIFF WBC (10/21/15) COMPREHEN METABOLIC PANEL (10/21/15) CT ABD & PELV W/CONTRAST (10/21/15) CT HEAD/BRAIN W/O DYE (10/08/15) CT THORAX W/DYE (10/21/15) DRAIN/INJ JOINT/BURSA W/O US (04/05/16) ELECTROCARDIOGRAM TRACING (10/21/15) EMERGENCY DEPT VISIT (10/21/15) EMERGENCY DEPT VISIT (09/10/15) EVALUATE SWALLOWING FUNCTION (10/08/15) EXTRACRANIAL BILAT STUDY (10/08/15) FIBRIN DEGRADATION QUANT (10/08/15) GAIT TRAINING THERAPY (10/08/15) GLUCOSE BLOOD TEST (10/08/15) GLYCOSYLATED HEMOGLOBIN TEST (10/08/15) HYDRATE IV INFUSION ADD-ON (10/21/15) HYDRATION IV INFUSION INIT (10/21/15) LIPID PANEL (10/08/15) METABOLIC PANEL TOTAL CA (10/08/15) MR ANGIOGRAPHY HEAD W/O DYE (10/08/15) MR ANGIOGRAPHY NECK W/DYE (10/08/15) MRI BRAIN STEM W/O & W/DYE (10/08/15) OT EVALUATION (10/08/15) PROTHROMBIN TIME (10/08/15) PT EVALUATION (10/08/15) ROUTINE VENIPUNCTURE (10/21/15) THERAPEUTIC ACTIVITIES (10/08/15) THROMBOPLASTIN TIME PARTIAL (10/08/15) TTE W/DOPPLER COMPLETE (10/08/15) URINALYSIS AUTO W/SCOPE (10/21/15) URINE CULTURE/COLONY COUNT (10/08/15) (1) S/P total hip arthroplasty SNOMED Code(s): 010822988580, 869089413136 Code(s): Z96.649 - PRESENCE OF UNSPECIFIED ARTIFICIAL HIP JOINT Priority: High Current Visit: Yes Qualifiers: Laterality: right Qualified Code(s): Z96.641 - Presence of right artificial hip joint (2) Osteoarthritis SNOMED Code(s): 106459800 Code(s): M19.90 - UNSPECIFIED OSTEOARTHRITIS, UNSPECIFIED SITE Priority: High Current Visit: Yes Qualifiers: Osteoarthritis location: hip Osteoarthritis type: primary Laterality: right Qualified Code(s): M16.11 - Unilateral primary osteoarthritis, right hip (3) Urinary retention SNOMED Code(s): 182233577 Code(s): R33.9 - RETENTION OF URINE, UNSPECIFIED Priority: High Current Visit: Yes (4) Afib SNOMED Code(s): 48296091 Code(s): I48.91 - UNSPECIFIED ATRIAL FIBRILLATION Priority: Medium Current Visit: No Qualifiers: Atrial fibrillation type: chronic Qualified Code(s): I48.2 - Chronic atrial fibrillation (5) HTN (hypertension) SNOMED Code(s): 67189487 Code(s): I10 - ESSENTIAL (PRIMARY) HYPERTENSION Priority: Medium Current Visit: No Qualifiers: Hypertension type: essential hypertension Qualified Code(s): I10 - Essential (primary) hypertension (6) HLD (hyperlipidemia) SNOMED Code(s): 08530223 Code(s): E78.5 - HYPERLIPIDEMIA, UNSPECIFIED Priority: Medium Current Visit: No Qualifiers: Hyperlipidemia type: unspecified Qualified Code(s): E78.5 - Hyperlipidemia , unspecified (7) Type 2 diabetes mellitus SNOMED Code(s): 74835348 Code(s): E11.9 - TYPE 2 DIABETES MELLITUS WITHOUT COMPLICATIONS Priority: Medium Current Visit: No Qualifiers: Diabetes mellitus complication status: without complication Diabetes mellitus penitentiary insulin use: without long term care phlebotomist use Qualified Code(s): E11.9 - Type 2 diabetes mellitus without complications (8) History of CVA (cerebrovascular accident) SNOMED Code(s): 977222082 Code(s): Z86.73 - PRSNL HX OF TIA (TIA), AND CEREB INFRC W/O RESID DEFICITS Priority: Medium Current Visit: No (9) Hx of lumbosacral spine surgery SNOMED Code(s): 010581344 Code(s): Z98.890 - OTHER SPECIFIED POSTPROCEDURAL STATES Priority: Medium Current Visit: No Problem List Initiated/Reviewed/Updated: Yes My Orders last 24 hours: My Active Orders 06/21/16 09:10 Tamsulosin [Flomax] 0.4 mg PO BIDPC 06/21/16 11:35 Urinary Catheter Assessment [RC] ASDIRECTED 06/21/16 11:45 Insert Urinary Catheter [OM.PC] Q24H 06/22/16 08:25 BASIC METABOLIC PANEL,BMP [CHEM] Urgent CBC WITH AUTO DIFF [HEME] Urgent UA W/MICROSCOPIC [URIN] Urgent Plan: I/P: S/P Rt YANET with Dr. Quiles: POD #2 -Pain management and DVT prophyax per primary team, Orthopedics -PT/OT -IS, C&DB -HGB pending at time of note -VSS Urinary retention -Flomax and diuretic; straight cath multiple times since surgery; will obtain UA this am to assure no UTI developing prior to DC today -Cont close monitoring -Consider DC with prophylactic abx to prevent AUTI postoperative related to retention-- again UA as above Chronic conditions- stable and cont home meds/tx A-Fib on pradaxa- continue HTN HLD DM- sugars stable Hx of BPH now with postop urinary retention- recommend dc home with flomax BID x 2-4 weeks, cardura QD and follow up with PCP/Urology Hx CVA Hx lumbar surgery for stenosis Other: GI prophylax CM/SW for dc planning OK for dc home today if continues to void spontaneously Patient is Full Code
[2016-06-22] MEDS: Doxazosin 4 MG Tab PO SCH (09:37)
[2016-06-22] MEDS: Dabigatran 75 MG Cap PO SCH ×2 (09:42→20:44)
[2016-06-22] MEDS: Famotidine 20 MG Tab PO SCH ×2 (09:43→20:44)
[2016-06-22] MEDS: Docusate Sodium 100 MG Cap PO SCH ×2 (09:43→21:42)
[2016-06-22] MEDS: Multivitamins with Minerals/Folic Acid/Lutein/Zeaxanth Tab PO SCH (09:43)
[2016-06-22] MEDS: Tamsulosin 0.4 MG Cap.ER PO SCH ×2 (09:43→18:18)
[2016-06-22] MEDS: Lisinopril 20 MG Tab PO SCH ×2 (09:43→21:44)
[2016-06-22] MEDS: Ascorbic Acid 500 MG Tab PO SCH (09:43)
[2016-06-22] MEDS: glipiZIDE 5 MG Tab PO SCH (09:44)
[2016-06-22] MEDS: Aspirin 81 MG Tab.EC PO SCH (09:44)
[2016-06-22] MEDS: Metoprolol Tartrate 25 MG Tab PO SCH ×2 (09:44→20:45)
[2016-06-22] MEDS: Ondansetron 4 MG/2 ML SDV IVPUSH PRN (14:02)
--- NOTE | 2016-06-22 14:10 | PCM.SURGPN ---
[id number] [id number] 1 Functional Status: Reports: pain controlled, tolerating diet, ambulating. Denies: urinating Pain Score: 2 - Review of Systems General: Denies: Fever, Fatigue HEENT: Reports: no symptoms Pulmonary: Denies: shortness of breath Cardiovascular: Denies: Chest Pain, Palpitations Gastrointestinal: Reports: No symptoms Musculoskeletal: Denies: leg pain Skin: Denies: rash Neurological: Reports: Numbness, Pre-Existing Deficit, Tingling (In feet, unchanged from previously) Psychiatric: Reports: no symptoms - Patient Data Vitals - most recent: Last Vital Signs Temp 36.8 C 06/22/16 11:11 Pulse 84 06/22/16 11:11 Resp 16 06/22/16 11:11 BP 101/52 L 06/22/16 11:11 Pulse Ox 96 06/22/16 11:11 Weight - most recent: 85.457 kg I&O - last 24 hours: Intake & Output 06/21/16 06/22/16 06/22/16 22:59 06:59 14:59 Intake Total 810 650 120 Output Total 350 200 Balance 460 450 120 Lab Results last 24 hrs: Laboratory Results - last 24 hr 06/22/16 06/22/16 Range/Units 09:15 09:15 WBC 11.38 H (4.23-9.07) K/mm3 RBC 3.78 L (4.63-6.08) M/mm3 Hgb 11.0 L (13.7-17.5) gm/L Hct 34.3 L (40.1-51.0) % MCV 90.7 (79.0-92.2) fl MCH 29.1 (25.7-32.2) pg MCHC 32.1 L (32.2-35.5) g/dl RDW Std Deviation 55.6 H (35.1-43.9) fL Plt Count 331 (163-337) K/mm3 MPV 10.3 (9.4-12.3) fl Neut % (Auto) 79.9 H (34.0-67.9) % Lymph % (Auto) 10.2 L (21.8-53.1) % Imperial % (Auto) 9.3 (5.3-12.2) % Eos % (Auto) 0.3 L (0.8-7.0) Baso % (Auto) 0.1 (0.1-1.2) % Neut # (Auto) 9.10 H (1.78-5.38) K/mm3 Lymph # (Auto) 1.16 L (1.32-3.57) K/mm3 Imperial # (Auto) 1.06 H (0.30-0.82) K/mm3 Eos # (Auto) 0.03 L (0.04-0.54) K/mm3 Baso # (Auto) 0.01 (0.01-0.08) K/mm3 Sodium 137 (136-145) mEq/L Potassium 3.8 (3.5-5.1) mEq/L Chloride 100 (98-107) mEq/L Carbon Dioxide 24 (21-32) mEq/L Anion Gap 16.8 H (5-15) BUN 26 H (7-18) mg/dL Creatinine 1.8 H (0.7-1.3) mg/dL Est Cr Clr Drug Dosing 33.23 mL/min Estimated GFR (MDRD) 36 (>60) mL/min BUN/Creatinine Ratio 14.4 (14-18) Glucose 226 H (83-115) mg/dL Calcium 8.7 (8.5-10.1) mg/dL Med Orders - Current: Current Medications Hydrocodone Bitart/Acetaminophen (Zillah 325-5 Mg) 1 - 2 tab PO Q4H PRN PRN Reason: Pain Last Admin: 06/22/16 07:03 Dose: 2 tab Ascorbic Acid (Vitamin C) 500 mg PO DAILY [facility] Last Admin: 06/22/16 09:43 Dose: 500 mg Aspirin (Halfprin) 81 mg PO DAILY [facility] Last Admin: 06/22/16 09:44 Dose: 81 mg Bisacodyl (Dulcolax) 5 mg PO DAILY PRN PRN Reason: Constipation Dabigatran (Pradaxa) 150 mg PO BID [facility] Last Admin: 06/22/16 09:42 Dose: 150 mg Diazepam (Valium.) 5 mg PO Q6H PRN PRN Reason: muscle spasms Docusate Sodium (Colace) 100 mg PO BID [facility] Last Admin: 06/22/16 09:43 Dose: 100 mg Doxazosin Mesylate (Cardura) 4 mg PO DAILY [facility] Last Admin: 06/22/16 09:37 Dose: Not Given Famotidine (Pepcid) 20 mg PO Q12H [facility] Last Admin: 06/22/16 09:43 Dose: 20 mg Glipizide (Glucotrol) 5 mg PO DAILY [facility] Last Admin: 06/22/16 09:44 Dose: 5 mg Lisinopril (Prinivil) 20 mg PO BID [facility] Last Admin: 06/22/16 09:43 Dose: 20 mg Magnesium Hydroxide (Milk Of Magnesia) 30 ml PO BID PRN PRN Reason: Constipation Metoprolol Tartrate (Lopressor) 12.5 mg PO BID [facility] Last Admin: 06/22/16 09:44 Dose: 12.5 mg Morphine Sulfate (Morphine) 2 mg IVPUSH Q2H PRN PRN Reason: Breakthrough Pain Ondansetron HCl (Zofran) 4 mg IVPUSH Q6H PRN PRN Reason: Nausea/Vomiting Last Admin: 06/22/16 14:02 Dose: 4 mg Senna (Senna) 8.6 mg PO BID PRN PRN Reason: Constipation Senna/Docusate Sodium (Senna Plus) 1 tab PO BID [facility] Last Admin: 06/22/16 09:43 Dose: 1 tab [facility] Last Admin: 06/22/16 09:43 Dose: 0.4 mg Vit A/Vit C/Vit E/Selen/Cu/Zn/Lutei (Icaps Mv) 1 tab PO DAILY [facility] Last Admin: 06/22/16 09:43 Dose: 1 tab Discontinued Medications Bumetanide (Bumex) 1 mg IVPUSH ONETIME ONE Stop: 06/20/16 16:41 Last Admin: 06/20/16 17:13 Dose: 1 mg Bumetanide (Bumex) 0.25 mg IVPUSH ONETIME ONE Stop: 06/21/16 14:16 Last Admin: 06/21/16 14:57 Dose: 0.25 mg Bumetanide (Bumex) 1 mg IVPUSH ONETIME ONE Stop: 06/22/16 05:01 Last Admin: 06/22/16 04:06 Dose: 1 mg Bupivacaine HCl (Marcaine 0.25%) Confirm Administered Dose 30 ml .ROUTE .STK- MED ONE Stop: 06/20/16 11:27 Last Admin: 06/20/16 13:53 Dose: 30 ml Cefazolin Sodium (Ancef) Confirm Administered Dose 2 gm .ROUTE .STK-MED ONE Stop: 06/20/16 11:27 Last Admin: 06/20/16 13:47 Dose: 2 gm Cefazolin Sodium (Ancef) Confirm Administered Dose 2 gm .ROUTE .STK-MED ONE Stop: 06/20/16 13:11 Morphine Sulfate 8 mg/Epinephrine HCl 0.3 mg/Cefuroxime Sodium 750 mg/Ketorolac Tromethamine 30 mg/Sodium Chloride 27.9 ml 0 mg .XX ONETIME ONE Stop: 06/20/16 12:31 Last Admin: 06/20/16 16:11 Dose: Not Given Enoxaparin Sodium (Lovenox) 80 mg SUBCUT BID ERNIE Ephedrine Sulfate (Ephedrine In Ns) Confirm Administered Dose 25 mg .ROUTE .STK- MED ONE Stop: 06/20/16 13:13 Fentanyl (Sublimaze) 50 mcg IVPUSH Q5M PRN PRN Reason: Pain Stop: 06/20/16 18:00 Fentanyl (Sublimaze) Confirm Administered Dose 100 mcg .ROUTE .STK-MED ONE Stop: 06/20/16 12:07 Glycopyrrolate () Confirm Administered Dose 1 mg .ROUTE .STK-MED ONE Stop: 06/20/16 13:35 Hydralazine HCl (Apresoline) 10 mg IVPUSH ONETIME ONE Stop: 06/20/16 16:41 Last Admin: 06/20/16 17:13 Dose: 10 mg Hydromorphone HCl (Dilaudid) 0.5 mg IVPUSH Q15M PRN PRN Reason: severe pain Stop: 06/20/16 13:01 Hydromorphone HCl (Dilaudid) Confirm Administered Dose 1 mg .ROUTE .STK-MED ONE Stop: 06/20/16 13:22 Lactated Ringer's (Ringers, Lactated) 1,000 mls @ 125 mls/hr IV ASDIRECTED [facility] Last Admin: 06/20/16 14:57 Dose: 125 mls/hr Cefazolin Sodium/Dextrose 2 gm (/ Premix) 50 mls @ 100 mls/hr IV Q8H [facility] Stop: 06/21/16 11:59 Last Admin: 06/21/16 12:22 Dose: 100 mls/hr Lidocaine HCl (Xylocaine-Mpf 1%) Confirm Administered Dose 4 mls @ as directed .ROUTE .STK-MED ONE Stop: 06/20/16 12:08 Sodium Chloride (Normal Saline) Confirm Administered Dose 100 mls @ as directed .ROUTE .STK-MED ONE Stop: 06/20/16 13:12 Lactated Ringer's (Ringers, Lactated) Confirm Administered Dose 1,000 mls @ as directed .ROUTE .STK-MED ONE Stop: 06/20/16 13:12 Iodine (Iodine 2% Mild Tincture) Confirm Administered Dose 30 ml .ROUTE .STK- MED ONE Stop: 06/20/16 11:27 Last Admin: 06/20/16 13:41 Dose: 18 ml Ketamine HCl (Ketalar) Confirm Administered Dose 500 mg .ROUTE .STK-MED ONE Stop: 06/20/16 13:46 Lidocaine/Sodium Bicarbonate (Buffered Lidocaine 1% In Ns 8.4%) 0.25 ml IV ONETIME PRN PRN Reason: Prior to IV Start Stop: 06/20/16 18:00 Last Admin: 06/20/16 10:44 Dose: 0.25 ml Metoprolol Tartrate (Lopressor) 12.5 mg PO DAILY [facility] Last Admin: 06/21/16 09:50 Dose: 12.5 mg Multivitamins (Thera) 1 each PO WITHBREAKFAST ERNIE Naloxone HCl (Narcan) 0.1 mg IVPUSH Q5M PRN PRN Reason: Oversedation Stop: 06/20/16 14:16 Neostigmine Methylsulfate (Neostigmine) Confirm Administered Dose 5 mg .ROUTE .STK-MED ONE Stop: 06/20/16 13:35 Ondansetron HCl (Zofran) 4 mg IVPUSH ONETIME PRN PRN Reason: Nausea/Vomiting Stop: 06/20/16 18:00 Ondansetron HCl (Zofran) Confirm Administered Dose 4 mg .ROUTE .STK-MED ONE Stop: 06/20/16 13:35 Phenylephrine HCl (Lonnie-Synephrine) Confirm Administered Dose 10 mg .ROUTE .STK- MED ONE Stop: 06/20/16 13:11 Pneumococcal 13-Valent Conj Vacc (Prevnar 13) 0.5 ml IM .ONCE ONE Stop: 06/21/16 13:41 Propofol (Diprivan 20 Ml) Confirm Administered Dose 200 mg .ROUTE .STK-MED ONE Stop: 06/20/16 12:07 Rocuronium [place] (Zemuron) Confirm Administered Dose 50 mg .ROUTE .STK-MED ONE Stop: 06/20/16 12:09 Sodium Chloride (Saline Flush) 10 ml FLUSH ASDIRECTED PRN PRN Reason: Keep Vein Open Stop: 06/20/16 18:00 Tamsulosin HCl (Flomax) 0.4 mg PO PCBREAKFAST ERNIE Tranexamic Acid (Cyklokapron) Confirm Administered Dose 1,000 mg .ROUTE .STK- MED ONE Stop: 06/20/16 11:27 Last Admin: 06/20/16 13:57 Dose: 1,000 mg - Exam Wound/Incisions: dressing dry and intact General: alert, oriented, cooperative, no acute distress Lungs: Normal respiratory effort Extremities: normal pulses, no cyanosis, no calf tenderness Skin: warm, dry Neurological: normal tone, strength equal bilateral, sensation intact Psy/Mental Status: alert - Problem List & Annotations (1) Urinary retention SNOMED Code(s): 916993327 Code(s): R33.9 - RETENTION OF URINE, UNSPECIFIED Status: Acute Priority: High Current Visit: Yes Onset Date: ~06/20/16 Annotation/Comment:: - Patient has still not voided, 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 - Problem List Review Problem List Initiated/Reviewed/Updated: Yes - My Orders Last 24 Hours: Active Orders 24 hr Category Date Time Status UA W/MICROSCOPIC [URIN] Urgent Lab 06/22/16 08:25 Uncollected Doxazosin [Cardura] Med 06/22/16 09:00 Active 4 mg PO DAILY Metoprolol Tartrate [Lopressor] Med 06/21/16 21:00 Active 12.5 mg PO BID Medication Orders Hydrocodone Bitart/Acetaminophen (Zillah 325-5 Mg) 1 - 2 tab PO Q4H PRN PRN Reason: Pain Last Admin: 06/22/16 07:03 Dose: 2 tab Admin: 06/21/16 18:48 Dose: 2 tab Admin: 06/21/16 13:15 Dose: 2 tab Admin: 06/21/16 07:48 Dose: 2 tab Admin: 06/20/16 21:31 Dose: 2 tab Ascorbic Acid (Vitamin C) 500 mg PO DAILY [facility] Last Admin: 06/22/16 09:43 Dose: 500 mg Admin: 06/21/16 09:51 Dose: 500 mg Aspirin (Halfprin) 81 mg PO DAILY [facility] Last Admin: 06/22/16 09:44 Dose: 81 mg Admin: 06/21/16 09:50 Dose: 81 mg Bisacodyl (Dulcolax) 5 mg PO DAILY PRN PRN Reason: Constipation Dabigatran (Pradaxa) 150 mg PO BID [facility] Last Admin: 06/22/16 09:42 Dose: 150 mg Admin: 06/21/16 22:02 Dose: 150 mg Admin: 06/21/16 09:51 Dose: 150 mg Admin: 06/20/16 21:30 Dose: 150 mg Diazepam (Valium.) 5 mg PO Q6H PRN PRN Reason: muscle spasms Docusate Sodium (Colace) 100 mg PO BID [facility] Last Admin: 06/22/16 09:43 Dose: 100 mg Admin: 06/21/16 22:03 Dose: 100 mg Admin: 06/21/16 09:48 Dose: Not Given Admin: 06/20/16 21:29 Dose: Not Given Doxazosin Mesylate (Cardura) 4 mg PO DAILY [facility] Last Admin: 06/22/16 09:37 Dose: Famotidine (Pepcid) 20 mg PO Q12H [facility] Last Admin: 06/22/16 09:43 Dose: 20 mg Admin: 06/21/16 22:02 Dose: 20 mg Admin: 06/21/16 09:50 Dose: 20 mg Admin: 06/20/16 21:30 Dose: 20 mg Glipizide (Glucotrol) 5 mg PO DAILY [facility] Last Admin: 06/22/16 09:44 Dose: 5 mg Admin: 06/21/16 09:51 Dose: 5 mg Lisinopril (Prinivil) 20 mg PO BID [facility] Last Admin: 06/22/16 09:43 Dose: 20 mg Admin: 06/21/16 22:06 Dose: 20 mg Admin: 06/21/16 09:49 Dose: 20 mg Admin: 06/20/16 21:30 Dose: 20 mg Magnesium Hydroxide (Milk Of Magnesia) 30 ml PO BID PRN PRN Reason: Constipation Metoprolol Tartrate (Lopressor) 12.5 mg PO BID [facility] Last Admin: 06/22/16 09:44 Dose: 12.5 mg Admin: 06/21/16 22:04 Dose: 12.5 mg Morphine Sulfate (Morphine) 2 mg IVPUSH Q2H PRN PRN Reason: Breakthrough Pain Ondansetron HCl (Zofran) 4 mg IVPUSH Q6H PRN PRN Reason: Nausea/Vomiting Last Admin: 06/22/16 14:02 Dose: 4 mg Admin: 06/20/16 17:35 Dose: 4 mg Senna (Senna) 8.6 mg PO BID PRN PRN Reason: Constipation Senna/Docusate Sodium (Senna Plus) 1 tab PO BID [facility] Last Admin: 06/22/16 09:43 Dose: 1 tab Admin: 06/21/16 22:03 Dose: 1 tab Admin: 06/21/16 09:49 Dose: Not Given Admin: 06/20/16 21:30 Dose: Not Given Tamsulosin HCl (Flomax) 0.4 mg PO BIDPC [facility] Last Admin: 06/22/16 09:43 Dose: 0.4 mg Admin: 06/21/16 18:46 Dose: 0.4 mg Admin: 06/21/16 09:49 Dose: 0.4 mg Vit A/Vit C/Vit E/Selen/Cu/Zn/Lutei (Icaps Mv) 1 tab PO DAILY [facility] Last Admin: 06/22/16 09:43 Dose: 1 tab Admin: 06/21/16 09:49 Dose: 1 tab - Assessment Assessment (Free Text/Narrative):: Post Op Day #1 CATHERINE HOLT - Plan Plan (Free Text/Narrative):: -Patient not voided yet, 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 -Consider Discharge to home tomorrow -Further orders per Hospitalist services. -The pt's case was discussed with Dr. Quiles.
--- NOTE | 2016-06-23 06:33 | PCM.CONSN ---
- General Info Date of Service: 06/23/16 Admission Dx/Problem (Free Text): Admission Diagnosis/Problem Admission Diagnosis/Problem Osteoarthritis of hip POD #[address] Etta MCCLURE; no further bradycardia or HTN noted since return from PACU. Voiding independently now. Working with PT, slow movements but doing ok; plans for rehab stay with DC to SNF today. Functional Status: Reports: pain controlled, tolerating diet, ambulating, urinating. Denies: new symptoms - Review of Systems General: Reports: No Symptoms HEENT: Reports: no symptoms Pulmonary: Reports: no symptoms Cardiovascular: Reports: No Symptoms Gastrointestinal: Reports: No symptoms Genitourinary: Reports: no symptoms Musculoskeletal: Reports: leg pain Skin: Reports: no symptoms Neurological: Reports: No Symptoms, Other (slow gait and speech- chronic and baseline since CVA) Psychiatric: Reports: no symptoms - Patient Data Vitals - most recent: Last Vital Signs Temp 98.6 F 06/23/16 04:12 Pulse 95 06/23/16 04:12 Resp 20 06/23/16 04:12 BP 127/80 06/23/16 04:12 Pulse Ox 96 06/23/16 04:12 Weight - most recent: 185 lb 14.4 oz I&O - last 24 hours: Intake & Output 06/22/16 06/22/16 06/23/16 14:59 22:59 06:59 Intake Total 237 101 4721 Output Total 1300 1050 Balance 120 -1060 75 Lab Results last 24 hrs: Laboratory Results - last 24 hr 06/22/16 06/22/16 06/22/16 Range/Units 09:15 09:15 14:38 WBC 11.38 H (4.23-9.07) K/mm3 RBC 3.78 L (4.63-6.08) M/mm3 Hgb 11.0 L (13.7-17.5) gm/L Hct 34.3 L (40.1-51.0) % MCV 90.7 (79.0-92.2) fl MCH 29.1 (25.7-32.2) pg MCHC 32.1 L (32.2-35.5) g/dl RDW Std Deviation 55.6 H (35.1-43.9) fL Plt Count 331 (163-337) K/mm3 MPV 10.3 (9.4-12.3) fl Neut % (Auto) 79.9 H (34.0-67.9) % Lymph % (Auto) 10.2 L (21.8-53.1) % [place] % (Auto) 9.3 (5.3-12.2) % Eos % (Auto) 0.3 L (0.8-7.0) Baso % (Auto) 0.1 (0.1-1.2) % Neut # (Auto) 9.10 H (1.78-5.38) K/mm3 Lymph # (Auto) 1.16 L (1.32-3.57) K/mm3 [place] # (Auto) 1.06 H (0.30-0.82) K/mm3 Eos # (Auto) 0.03 L (0.04-0.54) K/mm3 Baso # (Auto) 0.01 (0.01-0.08) K/mm3 Sodium 137 (136-145) mEq/L Potassium 3.8 (3.5-5.1) mEq/L Chloride 100 (98-107) mEq/L Carbon Dioxide 24 (21-32) mEq/L Anion Gap 16.8 H (5-15) BUN 26 H (7-18) mg/dL Creatinine 1.8 H (0.7-1.3) mg/dL Est Cr Clr Drug Dosing 33.23 mL/min Estimated GFR (MDRD) 36 (>60) mL/min BUN/Creatinine Ratio 14.4 (14-18) Glucose 226 H (83-115) mg/dL Calcium 8.7 (8.5-10.1) mg/dL Urine Color Dark yellow (Yellow) Urine Appearance Clear (Clear) Urine pH 5.5 (5.0-8.0) Ur Specific [place] 1.020 (1.005-1.030) Urine Protein Negative (Negative) Urine Glucose (UA) Negative (Negative) Urine Ketones Negative (Negative) Urine Occult Blood Negative (Negative) Urine Nitrite Negative (Negative) Urine Bilirubin Negative (Negative) Urine Urobilinogen 0.2 (0.2-1.0) Ur Leukocyte Esterase Trace H (Negative) Urine RBC 0-5 (0-5) /hpf Urine WBC 5-10 H (0-5) /hpf Ur Epithelial Cells 0-5 (0-5) /hpf Urine Bacteria Few (FEW) /hpf Fine Granular Casts 0-5 (0-5) /lpf Urine Mucus Few (FEW) /hpf Med Orders - Current: Current Medications Hydrocodone Bitart/Acetaminophen ([place] 325-5 Mg) 1 - 2 tab PO Q4H PRN PRN Reason: Pain Last Admin: 06/22/16 18:16 Dose: 2 tab Ascorbic Acid (Vitamin C) 500 mg PO DAILY [facility] Last Admin: 06/22/16 09:43 Dose: 500 mg Aspirin (Halfprin) 81 mg PO DAILY [facility] Last Admin: 06/22/16 09:44 Dose: 81 mg Bisacodyl (Dulcolax) 5 mg PO DAILY PRN PRN Reason: Constipation Dabigatran (Pradaxa) 150 mg PO BID [facility] Last Admin: 06/22/16 20:44 Dose: 150 mg Diazepam (Valium.) 5 mg PO Q6H PRN PRN Reason: muscle spasms Docusate Sodium (Colace) 100 mg PO BID [facility] Last Admin: 06/22/16 21:42 Dose: Not Given Doxazosin Mesylate (Cardura) 4 mg PO DAILY [facility] Last Admin: 06/22/16 09:37 Dose: Not Given Famotidine (Pepcid) 20 mg PO Q12H [facility] Last Admin: 06/22/16 20:44 Dose: 20 mg Glipizide (Glucotrol) 5 mg PO DAILY [facility] Last Admin: 06/22/16 09:44 Dose: 5 mg Lisinopril (Prinivil) 20 mg PO BID [facility] Last Admin: 06/22/16 21:44 Dose: 20 mg Magnesium Hydroxide (Milk Of Magnesia) 30 ml PO BID PRN PRN Reason: Constipation Metoprolol Tartrate (Lopressor) 12.5 mg PO BID [facility] Last Admin: 06/22/16 20:45 Dose: 12.5 mg Morphine Sulfate (Morphine) 2 mg IVPUSH Q2H PRN PRN Reason: Breakthrough Pain Ondansetron HCl (Zofran) 4 mg IVPUSH Q6H PRN PRN Reason: Nausea/Vomiting Last Admin: 06/22/16 14:02 Dose: 4 mg Senna (Senna) 8.6 mg PO BID PRN PRN Reason: Constipation Senna/Docusate Sodium (Senna Plus) 1 tab PO BID [facility] Last Admin: 06/22/16 20:44 Dose: Not Given [facility]ulosin [facility] ([facility]) [facility] Last Admin: 06/22/16 18:18 Dose: 0.4 mg Trimethoprim/Sulfamethoxazole (Septra Ds) 1 tab PO BID [facility] Vit A/Vit C/Vit E/Selen/Cu/Zn/Lutei (Icaps Mv) 1 tab PO DAILY [facility] Last Admin: 06/22/16 09:43 Dose: 1 tab Discontinued Medications Bumetanide (Bumex) 1 mg IVPUSH ONETIME ONE Stop: 06/20/16 16:41 Last Admin: 06/20/16 17:13 Dose: 1 mg Bumetanide (Bumex) 0.25 mg IVPUSH ONETIME ONE Stop: 06/21/16 14:16 Last Admin: 06/21/16 14:57 Dose: 0.25 mg Bumetanide (Bumex) 1 mg IVPUSH ONETIME ONE Stop: 06/22/16 05:01 Last Admin: 06/22/16 04:06 Dose: 1 mg Bupivacaine HCl (Marcaine 0.25%) Confirm Administered Dose 30 ml .ROUTE .STK- MED ONE Stop: 06/20/16 11:27 Last Admin: 06/20/16 13:53 Dose: 30 ml Cefazolin Sodium (Ancef) Confirm Administered Dose 2 gm .ROUTE .STK-MED ONE Stop: 06/20/16 11:27 Last Admin: 06/20/16 13:47 Dose: 2 gm Cefazolin Sodium (Ancef) Confirm Administered Dose 2 gm .ROUTE .STK-MED ONE Stop: 06/20/16 13:11 Morphine Sulfate 8 mg/Epinephrine HCl 0.3 mg/Cefuroxime Sodium 750 mg/Ketorolac Tromethamine 30 mg/Sodium Chloride 27.9 ml 0 mg .XX ONETIME ONE Stop: 06/20/16 12:31 Last Admin: 06/20/16 16:11 Dose: Not Given Enoxaparin Sodium (Lovenox) 80 mg SUBCUT BID [facility] Ephedrine Sulfate (Ephedrine In Ns) Confirm Administered Dose 25 mg .ROUTE .STK- MED ONE Stop: 06/20/16 13:13 Fentanyl (Sublimaze) 50 mcg IVPUSH Q5M PRN PRN Reason: Pain Stop: 06/20/16 18:00 Fentanyl (Sublimaze) Confirm Administered Dose 100 mcg .ROUTE .STK-MED ONE Stop: 06/20/16 12:07 Glycopyrrolate () Confirm Administered Dose 1 mg .ROUTE .STK-MED ONE Stop: 06/20/16 13:35 Hydralazine HCl (Apresoline) 10 mg IVPUSH ONETIME ONE Stop: 06/20/16 16:41 Last Admin: 06/20/16 17:13 Dose: 10 mg Hydromorphone HCl (Dilaudid) 0.5 mg IVPUSH Q15M PRN PRN Reason: severe pain Stop: 06/20/16 13:01 Hydromorphone HCl (Dilaudid) Confirm Administered Dose 1 mg .ROUTE .STK-MED ONE Stop: 06/20/16 13:22 Lactated Ringer's (Ringers, Lactated) 1,000 mls @ 125 mls/hr IV ASDIRECTED [facility] Last Admin: 06/20/16 14:57 Dose: 125 mls/hr Cefazolin Sodium/Dextrose 2 gm (/ Premix) 50 mls @ 100 mls/hr IV Q8H [facility] Stop: 06/21/16 11:59 Last Admin: 06/21/16 12:22 Dose: 100 mls/hr Lidocaine HCl (Xylocaine-Mpf 1%) Confirm Administered Dose 4 mls @ as directed .ROUTE .STK-MED ONE Stop: 06/20/16 12:08 Sodium Chloride (Normal Saline) Confirm Administered Dose 100 mls @ as directed .ROUTE .STK-MED ONE Stop: 06/20/16 13:12 Lactated Ringer's (Ringers, Lactated) Confirm Administered Dose 1,000 mls @ as directed .ROUTE .STK-MED ONE Stop: 06/20/16 13:12 Iodine (Iodine 2% Mild Tincture) Confirm Administered Dose 30 ml .ROUTE .STK- MED ONE Stop: 06/20/16 11:27 Last Admin: 06/20/16 13:41 Dose: 18 ml Ketamine HCl (Ketalar) Confirm Administered Dose 500 mg .ROUTE .STK-MED ONE Stop: 06/20/16 13:46 Lidocaine/Sodium Bicarbonate (Buffered Lidocaine 1% In Ns 8.4%) 0.25 ml IV ONETIME PRN PRN Reason: Prior to IV Start Stop: 06/20/16 18:00 Last Admin: 06/20/16 10:44 Dose: 0.25 ml Metoprolol Tartrate (Lopressor) 12.5 mg PO DAILY [facility] Last Admin: 06/21/16 09:50 Dose: 12.5 mg Multivitamins (Thera) 1 each PO WITHBREAKFAST [facility] Naloxone HCl (Narcan) 0.1 mg IVPUSH Q5M PRN PRN Reason: Oversedation Stop: 06/20/16 14:16 Neostigmine Methylsulfate (Neostigmine) Confirm Administered Dose 5 mg .ROUTE .STK-MED ONE Stop: 06/20/16 13:35 Ondansetron HCl (Zofran) 4 mg IVPUSH ONETIME PRN PRN Reason: Nausea/Vomiting Stop: 06/20/16 18:00 Ondansetron HCl (Zofran) Confirm Administered Dose 4 mg .ROUTE .STK-MED ONE Stop: 06/20/16 13:35 Phenylephrine HCl (Lonnie-Synephrine) Confirm Administered Dose 10 mg .ROUTE .STK- MED ONE Stop: 06/20/16 13:11 Pneumococcal 13-Valent Conj Vacc (Prevnar 13) 0.5 ml IM .ONCE ONE Stop: 06/21/16 13:41 Propofol (Diprivan 20 Ml) Confirm Administered Dose 200 mg .ROUTE .STK-MED ONE Stop: 06/20/16 12:07 [place] (Zemuron) Confirm Administered Dose 50 mg .ROUTE .STK-MED ONE Stop: 06/20/16 12:09 Sodium Chloride (Saline Flush) 10 ml FLUSH ASDIRECTED PRN PRN Reason: Keep Vein Open Stop: 06/20/16 18:00 Tamsulosin HCl (Flomax) 0.4 mg PO PCBREAKFAST [facility] Tranexamic Acid (Cyklokapron) Confirm Administered Dose 1,000 mg .ROUTE .STK- MED ONE Stop: 06/20/16 11:27 Last Admin: 06/20/16 13:57 Dose: 1,000 mg - Exam Quality Assessment: DVT prophylaxis General: alert, oriented, cooperative, no acute distress HEENT: Pupils equal, Pupils reactive, EOMI, Mucous membr. moist/pink Neck: supple Lungs: Clear to auscultation, Normal respiratory effort Cardiovascular: Irregular Rhythm Abdomen: bowel sounds present, soft, no tenderness, no distension (Male) Exam: Deferred Extremities: no edema, no calf tenderness Peripheral Pulses: 1+: dorsalis pedis (L), dorsalis pedis (R) Neurological: no new focal deficit Psy/Mental Status: alert, normal affect, normal mood Consult PN Assessment/Plan POD#: 3 Procedures: Procedures ASSAY GLUCOSE BLOOD QUANT (10/08/15) ASSAY OF FREE THYROXINE (10/08/15) ASSAY OF MAGNESIUM (10/08/15) ASSAY OF TROPONIN QUANT (10/21/15) ASSAY THYROID STIM HORMONE (10/08/15) C-REACTIVE PROTEIN HS (10/08/15) CHEST X-RAY 1 VIEW FRONTAL (10/08/15) COMPLETE CBC AUTOMATED (10/08/15) COMPLETE CBC W/AUTO DIFF WBC (10/21/15) COMPREHEN METABOLIC PANEL (10/21/15) CT ABD & PELV W/CONTRAST (10/21/15) CT HEAD/BRAIN W/O DYE (10/08/15) CT THORAX W/DYE (10/21/15) DRAIN/INJ JOINT/BURSA W/O US (04/05/16) ELECTROCARDIOGRAM TRACING (10/21/15) EMERGENCY DEPT VISIT (10/21/15) EMERGENCY DEPT VISIT (09/10/15) EVALUATE SWALLOWING FUNCTION (10/08/15) EXTRACRANIAL BILAT STUDY (10/08/15) FIBRIN DEGRADATION QUANT (10/08/15) GAIT TRAINING THERAPY (10/08/15) GLUCOSE BLOOD TEST (10/08/15) GLYCOSYLATED HEMOGLOBIN TEST (10/08/15) HYDRATE IV INFUSION ADD-ON (10/21/15) HYDRATION IV INFUSION INIT (10/21/15) LIPID PANEL (10/08/15) METABOLIC PANEL TOTAL CA (10/08/15) MR ANGIOGRAPHY HEAD W/O DYE (10/08/15) MR ANGIOGRAPHY NECK W/DYE (10/08/15) MRI BRAIN STEM W/O & W/DYE (10/08/15) OT EVALUATION (10/08/15) PROTHROMBIN TIME (10/08/15) PT EVALUATION (10/08/15) ROUTINE VENIPUNCTURE (10/21/15) THERAPEUTIC ACTIVITIES (10/08/15) THROMBOPLASTIN TIME PARTIAL (10/08/15) TTE W/DOPPLER COMPLETE (10/08/15) URINALYSIS AUTO W/SCOPE (10/21/15) URINE CULTURE/COLONY COUNT (10/08/15) (1) S/P total hip arthroplasty SNOMED Code(s): 675371845945, 934814824261 Code(s): Z96.649 - PRESENCE OF UNSPECIFIED ARTIFICIAL HIP JOINT Priority: High Current Visit: Yes Comment: - Pain well controlled - PT/OT has not signed off (afternoon PT not completed yet) - Will consider discharge in AM. 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 (4) Afib SNOMED Code(s): 82391809 Code(s): I48.91 - UNSPECIFIED ATRIAL FIBRILLATION Priority: Medium Current Visit: No Qualifiers: Atrial fibrillation type: chronic Qualified Code(s): I48.2 - Chronic atrial fibrillation (5) HTN (hypertension) SNOMED Code(s): 56839770 Code(s): I10 - ESSENTIAL (PRIMARY) HYPERTENSION Priority: Medium Current Visit: No Qualifiers: Hypertension type: essential hypertension Qualified Code(s): I10 - Essential (primary) hypertension (6) HLD (hyperlipidemia) SNOMED Code(s): 06814910 Code(s): E78.5 - HYPERLIPIDEMIA, UNSPECIFIED Priority: Medium Current Visit: No Qualifiers: Hyperlipidemia type: unspecified Qualified Code(s): E78.5 - Hyperlipidemia , unspecified (7) Type 2 diabetes mellitus SNOMED Code(s): 58367383 Code(s): E11.9 - TYPE 2 DIABETES MELLITUS WITHOUT COMPLICATIONS Priority: Medium Current Visit: No Qualifiers: Diabetes mellitus complication status: without complication 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: without detention use Qualified Code(s): E11.9 - Type 2 diabetes mellitus without complications (8) History of CVA (cerebrovascular accident) SNOMED Code(s): 436326610 Code(s): Z86.73 - PRSNL HX OF TIA (TIA), AND CEREB INFRC W/O RESID DEFICITS Priority: Medium Current Visit: No (9) Hx of lumbosacral spine surgery SNOMED Code(s): 133105465 Code(s): Z98.890 - OTHER SPECIFIED POSTPROCEDURAL STATES Priority: Medium Current Visit: No Problem List Initiated/Reviewed/Updated: Yes My Orders last 24 hours: My Active Orders 06/23/16 06:27 Ready for Discharge [RC] PER UNIT ROUTINE 06/23/16 09:00 Sulfamethoxazole/Trimethoprim [Septra DS] 1 tab PO BID Plan: I/P: S/P Rt YANET with Dr. Quiles: POD #3 -Pain management and DVT prophyax per primary team, Orthopedics -PT/OT-- recommends SNF for rehab stay; plans for DC to SNF today -IS, C&DB -VSS Urinary retention -Flomax and diuretic; straight cath multiple times since surgery; will obtain UA this am to assure no UTI developing prior to DC today -Cont close monitoring -Consider DC with prophylactic abx to prevent AUTI postoperative related to retention-- again UA as above -UA with trace to 1+ leuks; will place on bactrim BID x 7 days starting today for ? mild UTI and prevention d/t recent difficulties with retention Chronic conditions- stable and cont home meds/tx A-Fib on pradaxa- continue HTN HLD DM- sugars stable Hx of BPH now with postop urinary retention- recommend dc home with flomax BID and follow up with PCP/Urology Hx CVA Hx lumbar surgery for stenosis Other: GI prophylax CM/SW for dc planning OK for dc to SNF today for rehab stay from Hospitalist standpoint. Patient is Full Code
[2016-06-23 07:54] VITALS: BP 120/65
[2016-06-23] MEDS ORDERED: Sulfamethoxazole/Trimethoprim 800-160 MG Tab PO SCH (09:00)
[2016-06-23] MEDS ORDERED: Famotidine 20 MG Tab PO SCH (09:00)
[2016-06-23] MEDS: Dabigatran 75 MG Cap PO SCH (09:08)
[2016-06-23] MEDS: Multivitamins with Minerals/Folic Acid/Lutein/Zeaxanth Tab PO SCH (09:09)
[2016-06-23] MEDS: Tamsulosin 0.4 MG Cap.ER PO SCH (09:09)
[2016-06-23] MEDS: Lisinopril 20 MG Tab PO SCH (09:09)
[2016-06-23] MEDS: Metoprolol Tartrate 25 MG Tab PO SCH (09:10)
[2016-06-23] MEDS: Docusate Sodium 100 MG Cap PO SCH (09:11)
[2016-06-23] MEDS: Ascorbic Acid 500 MG Tab PO SCH (09:11)
[2016-06-23] MEDS: glipiZIDE 5 MG Tab PO SCH (09:11)
[2016-06-23] MEDS: Doxazosin 4 MG Tab PO SCH (09:11)
[2016-06-23] MEDS: Aspirin 81 MG Tab.EC PO SCH (09:11)
[2016-06-23] MEDS: Acetaminophen/HYDROcodone 325-5 MG Tab PO PRN (09:23)
[2016-06-23] MEDS ORDERED: Pneumococcal 13-Valent Conjugate Vaccine 0.5 ML Syringe IM ONE (10:10)
--- NOTE | 2016-06-23 18:16 | PCM.SURGPN ---
- General Info Date of Service: 06/22/16 POD#: 2 Functional Status: Reports: pain controlled, tolerating diet, ambulating, urinating. Denies: new symptoms - Review of Systems Musculoskeletal: Reports: other (The pt has been progressing slowly with therapies.) - Patient Data Vitals - most recent: Last Vital Signs Temp 99.3 F 06/23/16 07:52 Pulse 91 06/23/16 09:10 Resp 20 06/23/16 07:52 BP 120/65 06/23/16 09:11 Pulse Ox 95 06/23/16 07:52 Weight - most recent: 185 lb 14.4 oz I&O - last 24 hours: Intake & Output 06/23/16 06/23/16 06/23/16 06:59 14:59 22:59 Intake Total 1125 760 Output Total 1050 200 Balance 75 560 Med Orders - Current: Current Medications Discontinued Medications Hydrocodone Bitart/Acetaminophen ([place] 325-5 Mg) 1 - 2 tab PO Q4H PRN PRN Reason: Pain Last Admin: 06/23/16 09:23 Dose: 2 tab Ascorbic Acid (Vitamin C) 500 mg PO DAILY [facility] Last Admin: 06/23/16 09:11 Dose: 500 mg Aspirin (Halfprin) 81 mg PO DAILY [facility] Last Admin: 06/23/16 09:11 Dose: 81 mg Bisacodyl (Dulcolax) 5 mg PO DAILY PRN PRN Reason: Constipation Bumetanide (Bumex) 1 mg IVPUSH ONETIME ONE Stop: 06/20/16 16:41 Last Admin: 06/20/16 17:13 Dose: 1 mg Bumetanide (Bumex) 0.25 mg IVPUSH ONETIME ONE Stop: 06/21/16 14:16 Last Admin: 06/21/16 14:57 Dose: 0.25 mg Bumetanide (Bumex) 1 mg IVPUSH ONETIME ONE Stop: 06/22/16 05:01 Last Admin: 06/22/16 04:06 Dose: 1 mg Bupivacaine HCl (Marcaine 0.25%) Confirm Administered Dose 30 ml .ROUTE .STK- MED ONE Stop: 06/20/16 11:27 Last Admin: 06/20/16 13:53 Dose: 30 ml Cefazolin Sodium (Ancef) Confirm Administered Dose 2 gm .ROUTE .STK-MED ONE Stop: 06/20/16 11:27 Last Admin: 06/20/16 13:47 Dose: 2 gm Cefazolin Sodium (Ancef) Confirm Administered Dose 2 gm .ROUTE .STK-MED ONE Stop: 06/20/16 13:11 Morphine Sulfate 8 mg/Epinephrine HCl 0.3 mg/Cefuroxime Sodium 750 mg/Ketorolac Tromethamine 30 mg/Sodium Chloride 27.9 ml 0 mg .XX ONETIME ONE Stop: 06/20/16 12:31 Last Admin: 06/20/16 16:11 Dose: Not Given Dabigatran (Pradaxa) 150 mg PO BID [facility] Last Admin: 06/23/16 09:08 Dose: 150 mg Diazepam (Valium.) 5 mg PO Q6H PRN PRN Reason: muscle spasms Docusate Sodium (Colace) 100 mg PO BID [facility] Last Admin: 06/23/16 09:11 Dose: 100 mg Doxazosin Mesylate (Cardura) 4 mg PO DAILY [facility] Last Admin: 06/23/16 09:11 Dose: 4 mg Enoxaparin Sodium (Lovenox) 80 mg SUBCUT BID [facility] Ephedrine Sulfate (Ephedrine In Ns) Confirm Administered Dose 25 mg .ROUTE .STK- MED ONE Stop: 06/20/16 13:13 Famotidine (Pepcid) 20 mg PO Q12H [facility] Last Admin: 06/22/16 20:44 Dose: 20 mg Famotidine (Pepcid) 20 mg PO DAILY [facility] Last Admin: 06/23/16 09:11 Dose: 20 mg Fentanyl (Sublimaze) 50 mcg IVPUSH Q5M PRN PRN Reason: Pain Stop: 06/20/16 18:00 Fentanyl (Sublimaze) Confirm Administered Dose 100 mcg .ROUTE .STK-MED ONE Stop: 06/20/16 12:07 Glipizide (Glucotrol) 5 mg PO DAILY [facility] Last Admin: 06/23/16 09:11 Dose: 5 mg Glycopyrrolate () Confirm Administered Dose 1 mg .ROUTE .STK-MED ONE Stop: 06/20/16 13:35 Hydralazine HCl (Apresoline) 10 mg IVPUSH ONETIME ONE Stop: 06/20/16 16:41 Last Admin: 06/20/16 17:13 Dose: 10 mg Hydromorphone HCl (Dilaudid) 0.5 mg IVPUSH Q15M PRN PRN Reason: severe pain Stop: 06/20/16 13:01 Hydromorphone HCl (Dilaudid) Confirm Administered Dose 1 mg .ROUTE .STK-MED ONE Stop: 06/20/16 13:22 Lactated Ringer's (Ringers, Lactated) 1,000 mls @ 125 mls/hr IV ASDIRECTED [facility] Last Admin: 06/20/16 14:57 Dose: 125 mls/hr Cefazolin Sodium/Dextrose 2 gm (/ Premix) 50 mls @ 100 mls/hr IV Q8H [facility] Stop: 06/21/16 11:59 Last Admin: 06/21/16 12:22 Dose: 100 mls/hr Lidocaine HCl (Xylocaine-Mpf 1%) Confirm Administered Dose 4 mls @ as directed .ROUTE .STK-MED ONE Stop: 06/20/16 12:08 Sodium Chloride (Normal Saline) Confirm Administered Dose 100 mls @ as directed .ROUTE .STK-MED ONE Stop: 06/20/16 13:12 Lactated Ringer's (Ringers, Lactated) Confirm Administered Dose 1,000 mls @ as directed .ROUTE .STK-MED ONE Stop: 06/20/16 13:12 Iodine (Iodine 2% Mild Tincture) Confirm Administered Dose 30 ml .ROUTE .STK- MED ONE Stop: 06/20/16 11:27 Last Admin: 06/20/16 13:41 Dose: 18 ml Ketamine HCl (Ketalar) Confirm Administered Dose 500 mg .ROUTE .STK-MED ONE Stop: 06/20/16 13:46 Lidocaine/Sodium Bicarbonate (Buffered Lidocaine 1% In Ns 8.4%) 0.25 ml IV ONETIME PRN PRN Reason: Prior to IV Start Stop: 06/20/16 18:00 Last Admin: 06/20/16 10:44 Dose: 0.25 ml Lisinopril (Prinivil) 20 mg PO BID [facility] Last Admin: 06/23/16 09:09 Dose: 20 mg Magnesium Hydroxide (Milk Of Magnesia) 30 ml PO BID PRN PRN Reason: Constipation Metoprolol Tartrate (Lopressor) 12.5 mg PO DAILY [facility] Last Admin: 06/21/16 09:50 Dose: 12.5 mg Metoprolol Tartrate (Lopressor) 12.5 mg PO BID [facility] Last Admin: 06/23/16 09:10 Dose: 12.5 mg Morphine Sulfate (Morphine) 2 mg IVPUSH Q2H PRN PRN Reason: Breakthrough Pain Multivitamins (Thera) 1 each PO WITHBREAKFAST [facility] Naloxone HCl (Narcan) 0.1 mg IVPUSH Q5M PRN PRN Reason: Oversedation Stop: 06/20/16 14:16 Neostigmine Methylsulfate (Neostigmine) Confirm Administered Dose 5 mg .ROUTE .STK-MED ONE Stop: 06/20/16 13:35 Ondansetron HCl (Zofran) 4 mg IVPUSH Q6H PRN PRN Reason: Nausea/Vomiting Last Admin: 06/22/16 14:02 Dose: 4 mg Ondansetron HCl (Zofran) 4 mg IVPUSH ONETIME PRN PRN Reason: Nausea/Vomiting Stop: 06/20/16 18:00 Ondansetron HCl (Zofran) Confirm Administered Dose 4 mg .ROUTE .STK-MED ONE Stop: 06/20/16 13:35 Phenylephrine HCl (Lonnie-Synephrine) Confirm Administered Dose 10 mg .ROUTE .STK- MED ONE Stop: 06/20/16 13:11 Pneumococcal 13-Valent Conj Vacc (Prevnar 13) 0.5 ml IM .ONCE ONE Stop: 06/21/16 13:41 Pneumococcal 13-Valent Conj Vacc (Prevnar 13) 0.5 ml IM .ONCE ONE Stop: 06/23/16 10:11 Last Admin: 06/23/16 10:18 Dose: 0.5 ml Propofol (Diprivan 20 Ml) Confirm Administered Dose 200 mg .ROUTE .STK-MED ONE Stop: 06/20/16 12:07 Rocuronium [place]gora (Zemuron) Confirm Administered Dose 50 mg .ROUTE .STK-MED ONE Stop: 06/20/16 12:09 Senna (Senna) 8.6 mg PO BID PRN PRN Reason: Constipation Senna/Docusate Sodium (Senna Plus) 1 tab PO BID [facility] Last Admin: 06/23/16 09:09 Dose: 1 tab Sodium Chloride (Saline Flush) 10 ml FLUSH ASDIRECTED PRN PRN Reason: Keep Vein Open Stop: 06/20/16 18:00 Tamsulosin HCl (Flomax) 0.4 mg PO PCBREAKFAST ERNIE Tamsulosin HCl (Flomax) 0.4 mg PO BIDPC [facility] Last Admin: 06/23/16 09:09 Dose: 0.4 mg Tranexamic Acid (Cyklokapron) Confirm Administered Dose 1,000 mg .ROUTE .STK- MED ONE Stop: 06/20/16 11:27 Last Admin: 06/20/16 13:57 Dose: 1,000 mg Trimethoprim/Sulfamethoxazole (Septra Ds) 1 tab PO BID [facility] Last Admin: 06/23/16 09:09 Dose: 1 tab Vit A/Vit C/Vit E/Selen/Cu/Zn/Lutei (Icaps Mv) 1 tab PO DAILY [facility] Last Admin: 06/23/16 09:09 Dose: 1 tab - Exam Wound/Incisions: dressing dry and intact General: alert, cooperative, no acute distress Lungs: Normal respiratory effort Extremities: normal pulses, no calf tenderness, other (Tess's negative. Right thigh soft, nontender.) - Problem List Review Problem List Initiated/Reviewed/Updated: Yes - My Orders Last 24 Hours: Active Orders 24 hr Category Date Time Status Ready for Discharge [RC] PER UNIT ROUTINE Care 06/23/16 06:27 Active - Assessment Assessment (Free Text/Narrative):: POD#2 - right YANET - Plan Plan (Free Text/Narrative):: 1. The pt is on Pradaxa BID and ASA. SCDs, TEDs. 2. Suspect discharge to [facility] for continued rehabilitation as the pt is slow to progress with therapies. 3. Further orders per Hospitalist service. The pt's case was discussed with Dr. Quiles today.
--- NOTE | 2016-06-23 18:18 | PCM.SURGPN ---
- General Info Date of Service: 06/23/16 POD#: 3 Functional Status: Reports: pain controlled, tolerating diet, ambulating, urinating. Denies: new symptoms - Review of Systems Musculoskeletal: Reports: other (The pt feels prepared for discharge to [place] for continued rehabilitation.) - Patient Data Vitals - most recent: Last Vital Signs Temp 99.3 F 06/23/16 07:52 Pulse 91 06/23/16 09:10 Resp 20 06/23/16 07:52 BP 120/65 06/23/16 09:11 Pulse Ox 95 06/23/16 07:52 Weight - most recent: 185 lb 14.4 oz I&O - last 24 hours: Intake & Output 06/23/16 06/23/16 06/23/16 06:59 14:59 22:59 Intake Total 1125 760 Output Total 1050 200 Balance 75 560 Med Orders - Current: Current Medications Discontinued Medications Hydrocodone Bitart/Acetaminophen ([place] 325-5 Mg) 1 - 2 tab PO Q4H PRN PRN Reason: Pain Last Admin: 06/23/16 09:23 Dose: 2 tab Ascorbic Acid (Vitamin C) 500 mg PO DAILY [facility] Last Admin: 06/23/16 09:11 Dose: 500 mg Aspirin (Halfprin) 81 mg PO DAILY [facility] Last Admin: 06/23/16 09:11 Dose: 81 mg Bisacodyl (Dulcolax) 5 mg PO DAILY PRN PRN Reason: Constipation Bumetanide (Bumex) 1 mg IVPUSH ONETIME ONE Stop: 06/20/16 16:41 Last Admin: 06/20/16 17:13 Dose: 1 mg Bumetanide (Bumex) 0.25 mg IVPUSH ONETIME ONE Stop: 06/21/16 14:16 Last Admin: 06/21/16 14:57 Dose: 0.25 mg Bumetanide (Bumex) 1 mg IVPUSH ONETIME ONE Stop: 06/22/16 05:01 Last Admin: 06/22/16 04:06 Dose: 1 mg Bupivacaine HCl (Marcaine 0.25%) Confirm Administered Dose 30 ml .ROUTE .STK- MED ONE Stop: 06/20/16 11:27 Last Admin: 06/20/16 13:53 Dose: 30 ml Cefazolin Sodium (Ancef) Confirm Administered Dose 2 gm .ROUTE .STK-MED ONE Stop: 06/20/16 11:27 Last Admin: 06/20/16 13:47 Dose: 2 gm Cefazolin Sodium (Ancef) Confirm Administered Dose 2 gm .ROUTE .STK-MED ONE Stop: 06/20/16 13:11 Morphine Sulfate 8 mg/Epinephrine HCl 0.3 mg/Cefuroxime Sodium 750 mg/Ketorolac Tromethamine 30 mg/Sodium Chloride 27.9 ml 0 mg .XX ONETIME ONE Stop: 06/20/16 12:31 Last Admin: 06/20/16 16:11 Dose: Not Given Dabigatran (Pradaxa) 150 mg PO BID [facility] Last Admin: 06/23/16 09:08 Dose: 150 mg Diazepam (Valium.) 5 mg PO Q6H PRN PRN Reason: muscle spasms Docusate Sodium (Colace) 100 mg PO BID [facility] Last Admin: 06/23/16 09:11 Dose: 100 mg Doxazosin Mesylate (Cardura) 4 mg PO DAILY [facility] Last Admin: 06/23/16 09:11 Dose: 4 mg Enoxaparin Sodium (Lovenox) 80 mg SUBCUT BID [facility] Ephedrine Sulfate (Ephedrine In Ns) Confirm Administered Dose 25 mg .ROUTE .STK- MED ONE Stop: 06/20/16 13:13 Famotidine (Pepcid) 20 mg PO Q12H [facility] Last Admin: 06/22/16 20:44 Dose: 20 mg Famotidine (Pepcid) 20 mg PO DAILY [facility] Last Admin: 06/23/16 09:11 Dose: 20 mg Fentanyl (Sublimaze) 50 mcg IVPUSH Q5M PRN PRN Reason: Pain Stop: 06/20/16 18:00 Fentanyl (Sublimaze) Confirm Administered Dose 100 mcg .ROUTE .STK-MED ONE Stop: 06/20/16 12:07 Glipizide (Glucotrol) 5 mg PO DAILY [facility] Last Admin: 06/23/16 09:11 Dose: 5 mg Glycopyrrolate () Confirm Administered Dose 1 mg .ROUTE .STK-MED ONE Stop: 06/20/16 13:35 Hydralazine HCl (Apresoline) 10 mg IVPUSH ONETIME ONE Stop: 06/20/16 16:41 Last Admin: 06/20/16 17:13 Dose: 10 mg Hydromorphone HCl (Dilaudid) 0.5 mg IVPUSH Q15M PRN PRN Reason: severe pain Stop: 06/20/16 13:01 Hydromorphone HCl (Dilaudid) Confirm Administered Dose 1 mg .ROUTE .STK-MED ONE Stop: 06/20/16 13:22 Lactated Ringer's (Ringers, Lactated) 1,000 mls @ 125 mls/hr IV ASDIRECTED [facility] Last Admin: 06/20/16 14:57 Dose: 125 mls/hr Cefazolin Sodium/Dextrose 2 gm (/ Premix) 50 mls @ 100 mls/hr IV Q8H [facility] Stop: 06/21/16 11:59 Last Admin: 06/21/16 12:22 Dose: 100 mls/hr Lidocaine HCl (Xylocaine-Mpf 1%) Confirm Administered Dose 4 mls @ as directed .ROUTE .STK-MED ONE Stop: 06/20/16 12:08 Sodium Chloride (Normal Saline) Confirm Administered Dose 100 mls @ as directed .ROUTE .STK-MED ONE Stop: 06/20/16 13:12 Lactated Ringer's (Ringers, Lactated) Confirm Administered Dose 1,000 mls @ as directed .ROUTE .STK-MED ONE Stop: 06/20/16 13:12 Iodine (Iodine 2% Mild Tincture) Confirm Administered Dose 30 ml .ROUTE .STK- MED ONE Stop: 06/20/16 11:27 Last Admin: 06/20/16 13:41 Dose: 18 ml Ketamine HCl (Ketalar) Confirm Administered Dose 500 mg .ROUTE .STK-MED ONE Stop: 06/20/16 13:46 Lidocaine/Sodium Bicarbonate (Buffered Lidocaine 1% In Ns 8.4%) 0.25 ml IV ONETIME PRN PRN Reason: Prior to IV Start Stop: 06/20/16 18:00 Last Admin: 06/20/16 10:44 Dose: 0.25 ml Lisinopril (Prinivil) 20 mg PO BID [facility] Last Admin: 06/23/16 09:09 Dose: 20 mg Magnesium Hydroxide (Milk Of Magnesia) 30 ml PO BID PRN PRN Reason: Constipation Metoprolol Tartrate (Lopressor) 12.5 mg PO DAILY [facility] Last Admin: 06/21/16 09:50 Dose: 12.5 mg Metoprolol Tartrate (Lopressor) 12.5 mg PO BID [facility] Last Admin: 06/23/16 09:10 Dose: 12.5 mg Morphine Sulfate (Morphine) 2 mg IVPUSH Q2H PRN PRN Reason: Breakthrough Pain Multivitamins (Thera) 1 each PO WITHBREAKFAST [facility] Naloxone HCl (Narcan) 0.1 mg IVPUSH Q5M PRN PRN Reason: Oversedation Stop: 06/20/16 14:16 Neostigmine Methylsulfate (Neostigmine) Confirm Administered Dose 5 mg .ROUTE .STK-MED ONE Stop: 06/20/16 13:35 Ondansetron HCl (Zofran) 4 mg IVPUSH Q6H PRN PRN Reason: Nausea/Vomiting Last Admin: 06/22/16 14:02 Dose: 4 mg Ondansetron HCl (Zofran) 4 mg IVPUSH ONETIME PRN PRN Reason: Nausea/Vomiting Stop: 06/20/16 18:00 Ondansetron HCl (Zofran) Confirm Administered Dose 4 mg .ROUTE .STK-MED ONE Stop: 06/20/16 13:35 Phenylephrine HCl ([place]on[place]-Synephrine) Confirm Administered Dose 10 mg .ROUTE .STK- MED ONE Stop: 06/20/16 13:11 Pneumococcal 13-Valent Conj Vacc (Prevnar 13) 0.5 ml IM .ONCE ONE Stop: 06/21/16 13:41 Pneumococcal 13-Valent Conj Vacc (Prevnar 13) 0.5 ml IM .ONCE ONE Stop: 06/23/16 10:11 Last Admin: 06/23/16 10:18 Dose: 0.5 ml Propofol (Diprivan 20 Ml) Confirm Administered Dose 200 mg .ROUTE .STK-MED ONE Stop: 06/20/16 12:07 Rocuronium [place] (Zemuron) Confirm Administered Dose 50 mg .ROUTE .STK-MED ONE Stop: 06/20/16 12:09 Senna (Senna) 8.6 mg PO BID PRN PRN Reason: Constipation Senna/Docusate Sodium (Senna Plus) 1 tab PO BID [facility] Last Admin: 06/23/16 09:09 Dose: 1 tab Sodium Chloride (Saline Flush) 10 ml FLUSH ASDIRECTED PRN PRN Reason: Keep Vein Open Stop: 06/20/16 18:00 Tamsulosin HCl (Flomax) 0.4 mg PO PCBREAKFAST ERNIE Tamsulosin HCl (Flomax) 0.4 mg PO BIDPC [facility] Last Admin: 06/23/16 09:09 Dose: 0.4 mg Tranexamic Acid (Cyklokapron) Confirm Administered Dose 1,000 mg .ROUTE .STK- MED ONE Stop: 06/20/16 11:27 Last Admin: 06/20/16 13:57 Dose: 1,000 mg Trimethoprim/Sulfamethoxazole (Septra Ds) 1 tab PO BID [facility] Last Admin: 06/23/16 09:09 Dose: 1 tab Vit A/Vit C/Vit E/Selen/Cu/Zn/Lutei (Icaps Mv) 1 tab PO DAILY [facility] Last Admin: 06/23/16 09:09 Dose: 1 tab - Exam Wound/Incisions: dressing dry and intact General: alert, cooperative, no acute distress Lungs: Normal respiratory effort Extremities: normal pulses, no calf tenderness, other (Tess's negative. Right thigh soft and nontender.) - Problem List Review Problem List Initiated/Reviewed/Updated: Yes - My Orders Last 24 Hours: Active Orders 24 hr Category Date Time Status Ready for Discharge [RC] PER UNIT ROUTINE Care 06/23/16 06:27 Active - Assessment Assessment (Free Text/Narrative):: POD#3 - right YANET - Plan Plan (Free Text/Narrative):: 1. Dis[place] to [place]. 2. The pt requires continued rehabilitation. 3. Pradaxa and ASA. TEDs. 4. Further orders per Hospitalist service. The pt's case was discussed with Dr. Quiles.
--- NOTE | 2016-06-23 18:21 | PCM.DCSUM1 ---
Discharge Summary - Hospital Course Brief History: Francisco is an 80 male who underwent right YANET with Dr. Quiles on 06-20. The procedure was completed under general anesthesia. The pt tolerated the procedure well and was admitted to the Medical-Surgical Unit. Medical management was provided by the Hospitalist service. The pt's Hospital course was remarkable for post-operative urinary retention which was treated by the Hospitalist service and resolved. The pt's Hgb on POD#1 was 11.9 On POD#1, Pradaxa and ASA 81mg were resumed and were used for treatment of pt's chronic conditions and VTE prophylaxis. A Mepilex dressing was placed at the incision site at the time of surgery and remained clean and dry. The pt participated in P.T. and O.T. and progressed slowly. He followed the YANET precautions. The pt was allowed to WBAT. On POD#3, the pt was deemed appropriate to discharge [facility]. - Discharge Data Discharge Date: 06/23/16 Discharge Disposition: DC/Tfer to SNF 03 Condition: Good - Patient Summary/Data Consults: Consultations 06/20/16 06:45 Consult to Case Management [CONS] Routine Consult to Physician [CONS] Routine OT Evaluation and Treatment [CONS] Routine 06/20/16 06:50 PT Evaluation and Treatment [CONS] Routine - Patient Instructions Diet: Usual Diet as Tolerated Activity: Apply Ice, As Tolerated, Elevate Extremity, Full Weight Bearing Driving: Do Not Drive Showering/Bathing: May Shower Wound/Incision Care: Keep Operative Site/Wound Site Clean and Dry, Do NOT Change Dressing Notify Provider of: Fever, Increased Pain, Swelling and Redness, Drainage, Nausea and/or Vomiting Other/Special Instructions: Please get up and moving around every hour while awake. This helps to prevent blood clots. Please take Pradaxa twice daily - this also helps to prevent blood clots. Please wear the VALENTIN hose during the day and remove them at night. Complete the P.T. exercises and stretches that were instructed in the Hospital. Please use the pain medication and muscle relaxant as needed. The medication may cause drowsiness and/or constipation. You could use a stool softener like docusate sodium or Colace 100mg twice daily and/or a laxative like polyethylene glycol or Miralax daily for constipation. Contact your primary care provider for further instructions if you are constipated. Please schedule an appointment with your primary care provider for 'routine post-op care'. Use the incentive spirometer often. Please place ice to the hip often. Please elevate the limb to decrease swelling. Keep the Mepilex dressing in place until follow-up. Follow the total hip precautions. Please call [phone] with questions or concerns. - Discharge Plan Prescriptions/Med Rec: Acetaminophen/HYDROcodone [[place] 325-5 MG] 1 - 2 tab PO Q4H PRN #60 tablet PRN Reason: Pain Docusate Sodium [Colace] 100 mg PO BID #60 cap Sulfamethoxazole/Trimethoprim [Bactrim Ds Tablet] 1 each PO BID #14 tablet Tamsulosin [Flomax] 0.4 mg PO BIDPC #60 cap.er Home Medications: Home Meds Ascorbate Calcium [Vitamin C] 500 mg PO DAILY 10/09/15 [History] Aspirin [Halfprin] 81 mg PO DAILY 10/09/15 [History] Dabigatran Etexilate Mesylate [Pradaxa] 150 mg PO BID 10/09/15 [History] Lisinopril 20 mg PO BID 10/09/15 [History] Multivit,Ther Iron,Ca,Fa & Min [Thera-M [place]] 1 each PO DAILY 10/09/15 [ History] glipiZIDE [Glucotrol] 5 mg PO DAILY 10/09/15 [History] Acetaminophen [Tylenol] 650 mg PO BID 10/21/15 [History] Diazepam [Valium] 5 mg PO Q6H PRN 06/17/16 [History] Metoprolol Tartrate 12.5 mg PO BID 06/17/16 [History] Sennosides/Docusate Sodium [Senna-Docusate Sodium] 1 tab PO BID 06/17/16 [ History] Pravastatin Sodium 5 mg PO BEDTIME 06/21/16 [History] Acetaminophen/HYDROcodone [[place] 325-5 MG] 1 - 2 tab PO Q4H PRN #60 tablet 06/22 [Rx] Docusate Sodium [Colace] 100 mg PO BID #60 cap 06/22/16 [Rx] Tamsulosin [Flomax] 0.4 mg PO BIDPC #60 cap.er 06/22/16 [Rx] Sulfamethoxazole/Trimethoprim [Bactrim Ds Tablet] 1 each PO BID #14 tablet 06/23 [Rx] Patient Handouts: Total Hip Replacement, Care After, Total Hip Replacement, [id number], Dabigatran oral capsules, Hip Rehabilitation After Surgery, Aspirin, ASA oral tablets Referrals: Hira Ruby MD [Primary Care Provider] - (Please make appointment for 1-2 weeks after discharge.) Bertha Segundo PA-C [Physician Infection Control Manager] - 06/28/16 1:15 pm () - Patient Data Vitals - Most Recent: Last Vital Signs Temp 99.3 F 06/23/16 07:52 Pulse 91 06/23/16 09:10 Resp 20 06/23/16 07:52 BP 120/65 06/23/16 09:11 Pulse Ox 95 06/23/16 07:52 Weight - Most Recent: 185 lb 14.4 oz I&O - Last 24 hours: Intake & Output 06/23/16 06/23/16 06/23/16 06:59 14:59 22:59 Intake Total 1125 760 Output Total 1050 200 Balance 75 560 Med Orders - Current: Current Medications Discontinued Medications Hydrocodone Bitart/Acetaminophen ([place] 325-5 Mg) 1 - 2 tab PO Q4H PRN PRN Reason: Pain Last Admin: 06/23/16 09:23 Dose: 2 tab Ascorbic Acid (Vitamin C) 500 mg PO DAILY [facility] Last Admin: 06/23/16 09:11 Dose: 500 mg Aspirin (Halfprin) 81 mg PO DAILY [facility] Last Admin: 06/23/16 09:11 Dose: 81 mg Bisacodyl (Dulcolax) 5 mg PO DAILY PRN PRN Reason: Constipation Bumetanide (Bumex) 1 mg IVPUSH ONETIME ONE Stop: 06/20/16 16:41 Last Admin: 06/20/16 17:13 Dose: 1 mg Bumetanide (Bumex) 0.25 mg IVPUSH ONETIME ONE Stop: 06/21/16 14:16 Last Admin: 06/21/16 14:57 Dose: 0.25 mg Bumetanide (Bumex) 1 mg IVPUSH ONETIME ONE Stop: 06/22/16 05:01 Last Admin: 06/22/16 04:06 Dose: 1 mg Bupivacaine HCl (Marcaine 0.25%) Confirm Administered Dose 30 ml .ROUTE .STK- MED ONE Stop: 06/20/16 11:27 Last Admin: 06/20/16 13:53 Dose: 30 ml Cefazolin Sodium (Ancef) Confirm Administered Dose 2 gm .ROUTE .STK-MED ONE Stop: 06/20/16 11:27 Last Admin: 06/20/16 13:47 Dose: 2 gm Cefazolin Sodium (Ancef) Confirm Administered Dose 2 gm .ROUTE .STK-MED ONE Stop: 06/20/16 13:11 Morphine Sulfate 8 mg/Epinephrine HCl 0.3 mg/Cefuroxime Sodium 750 mg/Ketorolac Tromethamine 30 mg/Sodium Chloride 27.9 ml 0 mg .XX ONETIME ONE Stop: 06/20/16 12:31 Last Admin: 06/20/16 16:11 Dose: Not Given Dabigatran (Pradaxa) 150 mg PO BID [facility] Last Admin: 06/23/16 09:08 Dose: 150 mg Diazepam (Valium.) 5 mg PO Q6H PRN PRN Reason: muscle spasms Docusate Sodium (Colace) 100 mg PO BID [facility] Last Admin: 06/23/16 09:11 Dose: 100 mg Doxazosin Mesylate (Cardura) 4 mg PO DAILY [facility] Last Admin: 06/23/16 09:11 Dose: 4 mg Enoxaparin Sodium (Lovenox) 80 mg SUBCUT BID [facility] Ephedrine Sulfate (Ephedrine In Ns) Confirm Administered Dose 25 mg .ROUTE .STK- MED ONE Stop: 06/20/16 13:13 Famotidine (Pepcid) 20 mg PO Q12H [facility] Last Admin: 06/22/16 20:44 Dose: 20 mg Famotidine (Pepcid) 20 mg PO DAILY [facility] Last Admin: 06/23/16 09:11 Dose: 20 mg Fentanyl (Sublimaze) 50 mcg IVPUSH Q5M PRN PRN Reason: Pain Stop: 06/20/16 18:00 Fentanyl (Sublimaze) Confirm Administered Dose 100 mcg .ROUTE .STK-MED ONE Stop: 06/20/16 12:07 Glipizide (Glucotrol) 5 mg PO DAILY [facility] Last Admin: 06/23/16 09:11 Dose: 5 mg Glycopyrrolate () Confirm Administered Dose 1 mg .ROUTE .STK-MED ONE Stop: 06/20/16 13:35 Hydralazine HCl (Apresoline) 10 mg IVPUSH ONETIME ONE Stop: 06/20/16 16:41 Last Admin: 06/20/16 17:13 Dose: 10 mg Hydromorphone HCl (Dilaudid) 0.5 mg IVPUSH Q15M PRN PRN Reason: severe pain Stop: 06/20/16 13:01 Hydromorphone HCl (Dilaudid) Confirm Administered Dose 1 mg .ROUTE .STK-MED ONE Stop: 06/20/16 13:22 Lactated Ringer's (Ringers, Lactated) 1,000 mls @ 125 mls/hr IV ASDIRECTED [facility] Last Admin: 06/20/16 14:57 Dose: 125 mls/hr Cefazolin Sodium/Dextrose 2 gm (/ Premix) 50 mls @ 100 mls/hr IV Q8H [facility] Stop: 06/21/16 11:59 Last Admin: 06/21/16 12:22 Dose: 100 mls/hr Lidocaine HCl (Xylocaine-Mpf 1%) Confirm Administered Dose 4 mls @ as directed .ROUTE .STK-MED ONE Stop: 06/20/16 12:08 Sodium Chloride (Normal Saline) Confirm Administered Dose 100 mls @ as directed .ROUTE .STK-MED ONE Stop: 06/20/16 13:12 Lactated Ringer's (Ringers, Lactated) Confirm Administered Dose 1,000 mls @ as directed .ROUTE .STK-MED ONE Stop: 06/20/16 13:12 Iodine (Iodine 2% Mild Tincture) Confirm Administered Dose 30 ml .ROUTE .STK- MED ONE Stop: 06/20/16 11:27 Last Admin: 06/20/16 13:41 Dose: 18 ml Ketamine HCl (Ketalar) Confirm Administered Dose 500 mg .ROUTE .STK-MED ONE Stop: 06/20/16 13:46 Lidocaine/Sodium Bicarbonate (Buffered Lidocaine 1% In Ns 8.4%) 0.25 ml IV ONETIME PRN PRN Reason: Prior to IV Start Stop: 06/20/16 18:00 Last Admin: 06/20/16 10:44 Dose: 0.25 ml Lisinopril (Prinivil) 20 mg PO BID [facility] Last Admin: 06/23/16 09:09 Dose: 20 mg Magnesium Hydroxide (Milk Of Magnesia) 30 ml PO BID PRN PRN Reason: Constipation Metoprolol Tartrate (Lopressor) 12.5 mg PO DAILY [facility] Last Admin: 06/21/16 09:50 Dose: 12.5 mg Metoprolol Tartrate (Lopressor) 12.5 mg PO BID [facility] Last Admin: 06/23/16 09:10 Dose: 12.5 mg Morphine Sulfate (Morphine) 2 mg IVPUSH Q2H PRN PRN Reason: Breakthrough Pain Multivitamins (Thera) 1 each PO WITHBREAKFAST [facility] Naloxone HCl (Narcan) 0.1 mg IVPUSH Q5M PRN PRN Reason: Oversedation Stop: 06/20/16 14:16 Neostigmine Methylsulfate (Neostigmine) Confirm Administered Dose 5 mg .ROUTE .STK-MED ONE Stop: 06/20/16 13:35 Ondansetron HCl (Zofran) 4 mg IVPUSH Q6H PRN PRN Reason: Nausea/Vomiting Last Admin: 06/22/16 14:02 Dose: 4 mg Ondansetron HCl (Zofran) 4 mg IVPUSH ONETIME PRN PRN Reason: Nausea/Vomiting Stop: 06/20/16 18:00 Ondansetron HCl (Zofran) Confirm Administered Dose 4 mg .ROUTE .STK-MED ONE Stop: 06/20/16 13:35 Phenylephrine HCl (Lonnie-Synephrine) Confirm Administered Dose 10 mg .ROUTE .STK- MED ONE Stop: 06/20/16 13:11 Pneumococcal 13-Valent Conj Vacc (Prevnar 13) 0.5 ml IM .ONCE ONE Stop: 06/21/16 13:41 Pneumococcal 13-Valent Conj Vacc (Prevnar 13) 0.5 ml IM .ONCE ONE Stop: 06/23/16 10:11 Last Admin: 06/23/16 10:18 Dose: 0.5 ml Propofol (Diprivan 20 Ml) Confirm Administered Dose 200 mg .ROUTE .STK-MED ONE Stop: 06/20/16 12:07 Rocuronium [place] (Zemuron) Confirm Administered Dose 50 mg .ROUTE .STK-MED ONE Stop: 06/20/16 12:09 Senna (Senna) 8.6 mg PO BID PRN PRN Reason: Constipation Senna/Docusate Sodium (Senna Plus) 1 tab PO BID [facility] Last Admin: 06/23/16 09:09 Dose: 1 tab Sodium Chloride (Saline Flush) 10 ml FLUSH ASDIRECTED PRN PRN Reason: Keep Vein Open Stop: 06/20/16 18:00 Tamsulosin HCl (Flomax) 0.4 mg PO PCBREAKFAST ERNIE [facility] Last Admin: 06/23/16 09:09 Dose: 0.4 mg Tranexamic Acid (Cyklokapron) Confirm Administered Dose 1,000 mg .ROUTE .STK- MED ONE Stop: 06/20/16 11:27 Last Admin: 06/20/16 13:57 Dose: 1,000 mg Trimethoprim/Sulfamethoxazole (Septra Ds) 1 tab PO BID [facility] Last Admin: 06/23/16 09:09 Dose: 1 tab Vit A/Vit C/Vit E/Selen/Cu/Zn/Lutei (Icaps Mv) 1 tab PO DAILY [facility] Last Admin: 06/23/16 09:09 Dose: 1 tab *Q Meaningful Use (DIS) - VTE *Q VTE Criteria *Q: - Stroke *Q Stroke Criteria *Q: - AMI *Q AMI Criteria *Q:
--- NOTE | 2016-06-29 22:48 | PCM.OPNOTE ---
- General Post-Op/Procedure Note Date of Surgery/Procedure: 06/20/16 Operative Procedure(s): right total hip arthroplasty Pre Op Diagnosis: right hip osteoarthrosis Post-Op Diagnosis: Same Anesthesia Technique: Local, MAC, Spinal Primary Surgeon: Nolan Quiles Anesthesia Provider: Silva Alejandra Lumber Material Handler: Bertha Segundo Lumber Material Handler: eN Lopez EBL in mLs: 300 Complications: None Condition: Good
--- NOTE | 2016-06-29 23:32 | OR ---
DATE OF OPERATION: 06/20/2016 SURGEON: Nolan Quiles MD OPERATIVE PROCEDURE: Right total hip arthroplasty. PREOPERATIVE DIAGNOSIS: Right hip osteoarthrosis. POSTOPERATIVE DIAGNOSIS: Right hip osteoarthrosis. ANESTHESIA: Technique, local MAC. ANESTHESIA PROVIDER: Silva Alejandra CRNA. SECURITIES SALES ASSOCIATE: Bertha Segundo PA-C and Ne Lopez LPN. ESTIMATED BLOOD LOSS: 300 mL. COMPLICATIONS: None. CONDITION: Stable. IMPLANTS: 1. [place] size 56 mm Tritanium acetabular cup. 2. [place] size 9 Accolade II stem. 3. 28 mm Biolox ceramic head +4. 4. 42 mm polyethylene MDM component. 5. 42 mm MDM metal shell. DESCRIPTION OF PROCEDURE: The patient was identified in the preop holding area. Proper site was marked and identified by the surgeon. The patient was taken back to the operative theater where after adequate anesthesia, the patient was placed in left lateral decubitus position. All bony prominences were well padded. Pegs were placed and well padded. The patient's gluteal fold was parallel to the floor at this time. The right hip was then sterilely prepped and draped in the usual sterile fashion. OR time-out was performed. The patient received appropriate antibiotics at this time. Standard incision was made centered over the greater trochanter and this was taken down to the IT band and gluteal fascia, which was incised along the incisional length. Internally, retractor was then placed. Short external rotators were identified. Piriformis tendon was identified. Gluteus medius and minimus were protected and takedown of the short external rotators was done as well as capsulotomy down to the level of the lesser trochanter. The hip was then dislocated. Neck cut was then completed using neck cut guide. Anterior and posterior acetabular retractors were then placed on the pulvinar and labrum were removed. Starting with a 46 reamer, I was able to ream up to a 56 for a 56 mm trial cup which was found to be stable. At this time, a 56 mm Tritanium acetabular cup was impacted into place, roughly 45 degrees of abduction and 20 degrees of anteversion. At this time, the 42 mm MDM shell liner was then impacted into place into the acetabular shell. Attention was turned to the femur then. The femoral elevator was then placed. A box chisel and starting awl were used out laterally. Starting with the 0 broach, I was able to broach up to a size 9 which was found to be rotationally and vertically stable. At this time, a standard neck 127 degree along with MDM components was then trialed. It was found to be short on leg lengths. A +4 was used and was found to be equal leg lengths. At this time, the patient hip was brought through range of motion and found to be stable with no signs of dislocation and the hip was then dislocated with the use of a bone hook and the size 9 Accolade II stem was then impacted into place along with a 28 mm +4 Biolox head and the 42 mm polyethylene MDM shell. Hip was then relocated. A 1 L dilute Betadine solution was then irrigated through the joint along with 3 L pulse lavage irrigation with Ancef. Short external rotators were repaired using #5 Ethibond sutures. A #2 barbed suture was used for closure of the IT band and gluteal fascia. 2-0 Vicryl was used subcutaneously and Prineo was used for the skin. The patient tolerated the procedure well and sent to PACU in stable condition. OPERATION PERFORMED: MMNORMA /[id number]
== END 2016-06-23 10:30 | DRG 470 ==
LOC: JD.MS 10:03
PROVIDERS: ADMIT Orthopaedic Surgery; ATTEND Orthopaedic Surgery
PROC: 0SR9049 Replacement of Right Hip Joint with Ceramic on Polyethylene Synthetic Substitute, Cemented, Open Approach (ICD-10-PCS; principal; 2016-06-20)
DX: M16.11 Unilateral primary osteoarthritis, right hip (principal); R33.9 Retention of urine, unspecified; I48.2 Chronic atrial fibrillation; I10 Essential (primary) hypertension; E78.5 Hyperlipidemia, unspecified; Z86.73 Personal history of transient ischemic attack (TIA), and cerebral infarction without residual deficits; N40.0 Benign prostatic hyperplasia without lower urinary tract symptoms; M19.90 Unspecified osteoarthritis, unspecified site; E11.9 Type 2 diabetes mellitus without complications; Z79.84 Long term (current) use of oral hypoglycemic drugs; Z79.82 Long term (current) use of aspirin; Z79.899 Other long term (current) drug therapy; Z79.01 Long term (current) use of anticoagulants; Z23 Encounter for immunization
CPT/HCPCS: 01214; 36415; 73501-26-RT; 73501-RT; 80048; 80053; 81001; 82962; 85025; 85730; 86850; 86900; 86901; 87641; 90670; 97110-GP; 97116-GP; 97161-GP; 97165-GO; 97530-GP; 97535-GO; A9270-GY; C1776; G0009; J0171; J0360; J0690; J0697; J1170; J1885; J2270; J2370; J2405; J2704; J2710; J3010; J3490; J7030; J7050; J7120

== ENCOUNTER 2016-09-10 22:38 | Emergency (ER) | payer MEDICARE, BC ==
[2016-09-10 22:59] VITALS: BP 205/107
--- NOTE | 2016-09-10 23:11 | EDM.PDOC ---
ED HPI GENERAL MEDICAL PROBLEM - General Chief Complaint: Genitourinary Problem Stated Complaint: CATH PARTIALLY OUT/BLOOD BY CATH Time Seen by Provider: 09/10/16 23:06 Source of Information: Reports: Patient, Family (Son and ) History Limitations: Reports: Physical Impairment (Moderately hard of hearing) - History of Present Illness INITIAL COMMENTS - FREE TEXT/NARRATIVE: 80-year-old male presents to the ED with problems with his Mckeon catheter. Patient underwent transurethral resection of his prostate by urology from [facility] on September 07. He Pradaxa. has a indwelling Mckeon catheter that was been draining for quite well. He did note some blood in the drainage tube yesterday but tonight the bleeding has increased dramatically in the urine is blood. No clots are appreciated. He also appreciates urine draining around his Mckeon catheter at the penis. He has no abdominal pain. Note the urine drainage bag is nearly full. Note is med list shows that he is on an aspirin and Lovenox at present. He was on Pradaxa and it had to be stopped a week prior to his surgery so he is on bridge therapy with Lovenox. Worse the blood thinners will contribute markedly to his bleeding. Onset: Today Onset Date: 09/10/16 Onset Time: 16:00 Duration: Hour(s):, Getting Worse Location: Reports: Other (Mckeon catheter problems) Quality: Reports: Other (No pain or discomfort) Severity: Mild Improves with: Reports: None Worsens with: Reports: None Context: Reports: Other (Transurethral resection of the prostate done on September 07 with chronic indwelling Mckeon catheter since that time. 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) (None.) - Related Data Allergies Allergy/AdvReac Type Severity Reaction Status Date / Time No Known Allergies Allergy Verified 09/11/16 01:49 Home Meds: Home Meds Ascorbate Calcium [Vitamin C] 500 mg PO DAILY 10/09/15 [History] Aspirin [Halfprin] 81 mg PO DAILY 10/09/15 [History] Dabigatran Etexilate Mesylate [Pradaxa] 150 mg PO BID 10/09/15 [History] Lisinopril 20 mg PO BID 10/09/15 [History] Multivit,Ther Iron,Ca,Fa & Min [Thera-M Caplet] 1 each PO DAILY 10/09/15 [ History] glipiZIDE [Glucotrol] 5 mg PO DAILY 10/09/15 [History] Acetaminophen [Tylenol] 650 mg PO BID 10/21/15 [History] Diazepam [Valium] 5 mg PO Q6H PRN 06/17/16 [History] Metoprolol Tartrate 12.5 mg PO BID 06/17/16 [History] Sennosides/Docusate Sodium [Senna-Docusate Sodium] 1 tab PO BID 06/17/16 [ History] Pravastatin Sodium 5 mg PO BEDTIME 06/21/16 [History] Acetaminophen/HYDROcodone [[place] 325-5 MG] 1 - 2 tab PO Q4H PRN #60 tablet 06/22 [Rx] Docusate Sodium [Colace] 100 mg PO BID #60 cap 06/22/16 [Rx] Tamsulosin [Flomax] 0.4 mg PO BIDPC #60 cap.er 06/22/16 [Rx] Sulfamethoxazole/Trimethoprim [Bactrim Ds Tablet] 1 each PO BID #14 tablet 06/23 [Rx] Past Medical History HEENT History: Reports: Impaired Vision Other HEENT History: Wears glasses Cardiovascular History: Reports: Afib, High Cholesterol, Hypertension Respiratory History: Reports: None Gastrointestinal History: Reports: None Genitourinary History: Reports: BPH, Other (See Below) Other Genitourinary History: urinary retention ENVIRONMENTAL TECH History: 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 Psychiatric History: Reports: None Endocrine/Metabolic History: Reports: Diabetes, Type II Hematologic History: Reports: Anemia Immunologic History: Reports: None Oncologic (Cancer) History: Reports: None Dermatologic History: Reports: None - Infectious Disease History Infectious Disease History: Reports: Chicken Pox - Past Surgical History Head Surgeries/Procedures: Reports: None HEENT Surgical History: Reports: Cataract Surgery, Naso-Sinus Surgery GI Surgical History: Reports: Other (See Below) Male Surgical History: Reports: TURP-Transurethral Resection of Prostate Musculoskeletal Surgical History: Reports: None, Hip Replacement Social & Family History - Family History Family Medical History: Noncontributory - Tobacco Use Smoking Status *Q: Never Smoker Packs/Tins Daily: 1.5 Used Tobacco, but Quit: Yes Month Tobacco Last Used: Around 1964 Second Hand Smoke Exposure: No - Caffeine Use Caffeine Use: Reports: Coffee Other Caffeine Use: 5 per day - Alcohol Use Days Per Week of Alcohol Use: 2 Number of Drinks Per Day: 2 Total Drinks Per Week: 4 - Recreational Drug Use Recreational Drug Use: No - Living Situation & Occupation Living situation: Reports: , with Spouse Occupation: Retired ED ROS GENERAL - Review of Systems Review Of Systems: See Below Constitutional: Reports: Malaise, Weakness, Fatigue, Decreased Appetite. Denies : Fever, Chills, Weight Loss HEENT: Reports: No Symptoms Respiratory: Reports: Shortness of Breath (On exertion) Cardiovascular: Reports: Blood Pressure Problem, Dyspnea on Exertion ( Chronically). Denies: Chest Pain, Claudication (Blood pressure is very high at the time of admission to the ED .), Edema, Lightheadedness, Orthopnea Endocrine: Reports: Fatigue GI/Abdominal: Denies: Abdominal Pain : Reports: Hematuria, Other (Gross hematuria patient and his urinary drainage bag from Mckeon catheter.) Musculoskeletal: Reports: Back Pain (Chronically) Skin: Reports: No Symptoms Neurological: Reports: Confusion (Appears mildly confused) Hematologic/Lymphatic: Reports: No Symptoms Immunologic: Reports: No Symptoms ED EXAM, RENAL/ - Physical Exam Exam: See Below Exam Limited By: Other (Hard of hearing) General Appearance: Alert, WD/WN, No Apparent Distress Respiratory/Chest: No Respiratory Distress, Lungs Clear, Normal Breath Sounds, No Accessory Muscle Use Cardiovascular: Normal Peripheral Pulses, Regular Rate, Rhythm, No Edema, No Gallop, No Murmur GI/Abdominal: Normal Bowel Sounds, Soft, Non-Tender, No Organomegaly, No Abnormal Bruit, No Mass, Pelvis Stable (Male) Exam: Other (He has an indwelling Mckeon catheter that appears to be in the adequate position. He claims there is urine draining around the catheter at the opening of the urethra however. His urine drainage bag is filled with very bloody urine.) Back Exam: Normal Inspection, Full Range of Motion Extremities: Normal Inspection, Normal Range of Motion, Non-Tender, Normal Capillary Refill Neurological: Alert, Oriented, CN II-XII Intact, Normal Cognition Course - Vital Signs Last Recorded V/S: Last Vital Signs Temp 36.9 C 09/10/16 22:52 Pulse 85 09/10/16 22:52 Resp 16 09/10/16 22:52 BP 205/107 H 09/10/16 22:52 Pulse Ox 98 09/10/16 22:52 - Orders/Labs/Meds Orders: Active Orders 24 hr Category Date Time Status Mckeon Catheter Insertion [Insert Urinary Catheter] [OM. Care 09/10/16 23:15 Ordered PC] Q24H Urinary Catheter Assessment [RC] ASDIRECTED Care 09/10/16 23:13 Active Labs: Laboratory Tests 09/10/16 Range/Units 23:50 WBC 8.23 (4.23-9.07) K/mm3 RBC 4.01 L (4.63-6.08) M/mm3 Hgb 12.1 L (13.7-17.5) gm/L Hct 36.9 L (40.1-51.0) % MCV 92.0 (79.0-92.2) fl MCH 30.2 (25.7-32.2) pg MCHC 32.8 (32.2-35.5) g/dl RDW Std Deviation 47.1 H (35.1-43.9) fL Plt Count 199 (163-337) K/mm3 MPV 11.1 (9.4-12.3) fl Neut % (Auto) 63.5 (34.0-67.9) % Lymph % (Auto) 22.0 (21.8-53.1) % [place] % (Auto) 11.5 (5.3-12.2) % Eos % (Auto) 2.8 (0.8-7.0) Baso % (Auto) 0.1 (0.1-1.2) % Neut # (Auto) 5.22 (1.78-5.38) K/mm3 Lymph # (Auto) 1.81 (1.32-3.57) K/mm3 [place] # (Auto) 0.95 H (0.30-0.82) K/mm3 Eos # (Auto) 0.23 (0.04-0.54) K/mm3 Baso # (Auto) 0.01 (0.01-0.08) K/mm3 - Radiology Interpretation Free Text/Narrative:: 80-year-old male presents the ED with gross hematuria post TURP on Monday, September 07. Noted some blood noted in his drainage tube yesterday but it's become grossly bloody since about 4:00 today. It seems to be still draining adequately without clots. He claims there is urine coming around the catheter at the opening of the penis or urethral meatus as well. He's worried that the catheter is moved out of position. When Mckeon catheter will be removed in a 3-way catheter placed and BOOT irrigation will be placed. - Re-Assessments/Exams Free Text/Narrative Re-Assessment/Exam: 09/11/16 01:03 removed his Mckeon catheter and placed a three-way 22 [place] Mckeon catheter for irrigation of the bladder. Irrigation did return some blood but no clots and it remained quite pinkish in color. There appears to be continuous oozing from the prostate surgical wound. This is being aggravated by being on Lovenox and aspirin. Hemoglobin is 12.1 today. Decision made to see how things go overnight and he will go home with his son. However if the drainage bag is grossly bloody in the over the next 8-12 hours then they will travel back to [place] for urological consultation. Patient is on Lovenox to replace Pradaxa that he is on for atrial fibrillation as he's had a stroke 4 months ago. Hopefully the bleeding may settle overnight. Departure - Departure Time of Disposition: 00:58 Disposition: Home, Self-Care 01 Condition: Fair Clinical Impression: Gross hematuria, Status post recent transurethral resection of prostate, Mckeon catheter problem - Discharge Information Instructions: Transurethral Resection of the Prostate, Care After, Mckeon Catheter Care, Adult, [id number], Hematuria, Adult Referrals: Hira Ruby MD [Primary Care Provider] - Forms: ED Department Discharge Additional Instructions: Evaluation in the emergency room today in regards to gross hematuria. This means a large amount of blood is coming from the Mckeon catheter that has been inserted into her bladder post transurethral resection of your prostate gland 3 days ago. You're on Lovenox and aspirin and this is likely contributing to bleeding problem. No clots were identified when we irrigated the urinary bladder and therefore it appears to be oozing from surgical wound site. A three- way Mckeon catheter has been left in place so that irrigation can be carried out at any time if the bladder clots up and is unable to drain properly. My suggestion would be to see how things go overnight. If it looks like the bag is contained to fill with obvious gross blood then returned to [place] to urology service is indicated as cauterization of the bleeding site may be required. Usually the bleeding quits on its own. However with current blood thinners this may not be the case. Hemoglobin today is 12.1 which is still in the normal range. - My Orders Last 24 Hours: My Active Orders 09/10/16 23:13 Urinary Catheter Assessment [RC] ASDIRECTED 09/10/16 23:15 Mckeon Catheter Insertion [Insert Urinary Catheter] [OM.PC] Q24H - Assessment/Plan Last 24 Hours: My Active Orders 09/10/16 23:13 Urinary Catheter Assessment [RC] ASDIRECTED 09/10/16 23:15 Mckeon Catheter Insertion [Insert Urinary Catheter] [OM.PC] Q24H
== END 2016-09-11 01:30 | disposition home or self-care (01) ==
LOC: JD.ED 22:38
DX: R31.0 Gross hematuria (principal); Z46.6 Encounter for fitting and adjustment of urinary device; Z87.891 Personal history of nicotine dependence; Z98.49 Cataract extraction status, unspecified eye; Z96.649 Presence of unspecified artificial hip joint; Z98.890 Other specified postprocedural states; I10 Essential (primary) hypertension; E78.00 Pure hypercholesterolemia, unspecified; M19.90 Unspecified osteoarthritis, unspecified site; E11.9 Type 2 diabetes mellitus without complications; Z86.2 Personal history of diseases of the blood and blood-forming organs and certain disorders involving the immune mechanism; Z90.79 Acquired absence of other genital organ(s); Z79.82 Long term (current) use of aspirin; Z79.899 Other long term (current) drug therapy
CPT/HCPCS: 36415; 51700; 51702; 85025; 99283; 99283-25

== ENCOUNTER 2016-10-24 17:13 | Emergency (ER) | payer MEDICARE, BC ==
[2016-10-24 17:21] VITALS: BP 190/103
[2016-10-24] MEDS ORDERED: HYDROmorphone 0.5 MG/0.5 ML Syringe IVPUSH ONE (17:34)
[2016-10-24] MEDS ORDERED: Sodium Chloride 0.9% 10 ML Syringe FLUSH PRN (17:34)
[2016-10-24] MEDS ORDERED: Sodium Chloride 0.9% 1,000 ML IV SCH (17:45)
[2016-10-24] MEDS ORDERED: Acetaminophen 325 MG Tab PO ONE (19:16)
[2016-10-24] MEDS ORDERED: Ketorolac 30 MG/ML SDV IVPUSH SCH (19:30)
[2016-10-24] MEDS ORDERED: Sodium Chloride 0.9% 500 ML IV ONE (19:38)
--- NOTE | 2016-10-24 19:45 | EDM.PDOC ---
ED HPI GENERAL MEDICAL PROBLEM - General Chief Complaint: Lower Extremity Injury/Pain Stated Complaint: [facility] Time Seen by Provider: 10/24/16 17:17 Source of Information: Reports: Patient, EMS, Family, RN Notes Reviewed - History of Present Illness INITIAL COMMENTS - FREE TEXT/NARRATIVE: 80-year-old gentleman comes in with right hip pain. He Did have total R hip replacement about 4 months ago. He was doing relatively well but then had onset of worsening pain about a week ago after a "therapy session". The pain has been in the right hip area and more along the right anterior proximal thigh then into the groin itself. He did see his Orthopedist this last Monday 3 days ago. He was started on some tramadol. He stopped that because "he did not like how that made him feel". He did Take a dose of Tylenol this past morning but has not had anything for pain not the last 8-10 hours. At home prior to arrival he tried to stand up or walk" the hip or leg "gave out on him". He was therefore brought in by [facility] for further evaluation. He's had no chest pain or difficulty breathing. He did not fall. He does not have much pain at rest. It is mainly when he tries to move his leg, stand or walk that he has more severe discomfort. Right Hip Pain Score (Numeric/FACES): 4 - Related Data Allergies Allergy/AdvReac Type Severity Reaction Status Date / Time No Known Allergies Allergy Verified 09/11/16 01:49 Home Meds: Home Meds Ascorbate Calcium [Vitamin C] 500 mg PO DAILY 10/09/15 [History] Aspirin [Halfprin] 81 mg PO DAILY 10/09/15 [History] Lisinopril 20 mg PO BID 10/09/15 [History] glipiZIDE [Glucotrol] 5 mg PO DAILY 10/09/15 [History] Acetaminophen [Tylenol] 650 mg PO TID 10/21/15 [History] Metoprolol Tartrate 12.5 mg PO BID 06/17/16 [History] Pravastatin Sodium 5 mg PO BEDTIME 06/21/16 [History] Docusate Sodium [Colace] 100 mg PO BID 10/24/16 [History] Past Medical History HEENT History: Reports: Impaired Vision Other HEENT History: Wears glasses Cardiovascular History: Reports: Afib, High Cholesterol, Hypertension Respiratory History: Reports: None Gastrointestinal History: Reports: None Genitourinary History: Reports: BPH, Other (See Below) Other Genitourinary History: urinary retention 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 Psychiatric History: Reports: None Endocrine/Metabolic History: Reports: Diabetes, Type II Hematologic History: Reports: Anemia Immunologic History: Reports: None Oncologic (Cancer) History: Reports: None Dermatologic History: Reports: None - Infectious Disease History Infectious Disease History: Reports: Chicken Pox - Past Surgical History Head Surgeries/Procedures: Reports: None HEENT Surgical History: Reports: Cataract Surgery, Naso-Sinus Surgery GI Surgical History: Reports: Other (See Below) Male Surgical History: Reports: TURP-Transurethral Resection of Prostate Musculoskeletal Surgical History: Reports: Hip Replacement Social & Family History - Family History Family Medical History: Noncontributory - Tobacco Use Smoking Status *Q: Former Smoker Packs/Tins Daily: 1.5 Used Tobacco, but Quit: Yes Month Tobacco Last Used: 12 Second Hand Smoke Exposure: No - Caffeine Use Caffeine Use: Reports: Coffee Other Caffeine Use: 5 per day - Alcohol Use Days Per Week of Alcohol Use: 2 Number of Drinks Per Day: 2 Total Drinks Per Week: 4 - Recreational Drug Use Recreational Drug Use: No - Living Situation & Occupation Living situation: Reports: , with Spouse Occupation: Retired Review of Systems - Review of Systems Review Of Systems: See Below Constitutional: Denies: Chills, Fever Eyes: Reports: No Symptoms Mouth/Throat: Reports: No Symptoms Respiratory: Denies: Shortness of Breath, Pleuritic Chest Pain Cardiovascular: Denies: Chest Pain GI/Abdominal: Denies: Abdominal Pain, Nausea, Vomiting Musculoskeletal: Reports: Leg Pain (Right hip right proximal thigh), Joint Pain Skin: Reports: No Symptoms Neurological: Reports: Difficulty Walking (Due to discomfort right lower extremity). Denies: Numbness, Tingling, Trouble Speaking, Weakness ED EXAM, GENERAL - Physical Exam Exam: See Below General Appearance: Alert Eye Exam: Bilateral Eye: PERRL Throat/Mouth: Normal Inspection, Normal Oropharynx Head: Atraumatic Neck: Supple Respiratory/Chest: No Respiratory Distress, Lungs Clear, Normal Breath Sounds Cardiovascular: Regular Rate, Rhythm GI/Abdominal: Soft, Non-Tender Extremities: Normal Range of Motion (Patient does have good range of motion at the right hip joint with mild discomfort of the proximal thigh anteriorly), Other (Very mild tenderness to the right lateral hip and right proximal thigh anteriorly). No: Increased Warmth, Pallor, Redness Skin Exam: Warm, Dry, Normal Color, No Rash Course - Vital Signs Last Recorded V/S: Last Vital Signs Temp 98 F 10/24/16 17:16 Pulse 72 10/24/16 17:16 Resp 18 10/24/16 17:16 BP 190/103 H 10/24/16 17:16 Pulse Ox 100 10/24/16 17:16 - Orders/Labs/Meds Orders: Active Orders 24 hr Category Date Time Status EKG 12 Lead [EKG Documentation Completion] [RC] STAT Care 10/24/16 17:34 Active Peripheral IV Care [RC] . DIRECTED Care 10/24/16 17:35 Active Hip Min 2V or 3V w Pelvis Rt [CR] Stat Exams 10/24/16 18:27 Taken Ketorolac [Toradol] Med 10/24/16 19:30 Active 15 mg IVPUSH ONETIME Sodium Chloride 0.9% [Normal Saline] 1,000 ml Med 10/24/16 17:45 Active IV ASDIRECTED Sodium Chloride 0.9% [Saline Flush] Med 10/24/16 17:34 Active 10 ml FLUSH ASDIRECTED PRN Peripheral IV Insertion Adult [OM.PC] Stat Oth 10/24/16 17:34 Ordered Medication Orders Sodium Chloride (Normal Saline) 1,000 mls @ 150 mls/hr IV ASDIRECTED ERNIE Last Admin: 10/24/16 17:44 Dose: 150 mls/hr Ketorolac Tromethamine (Toradol) 15 mg IVPUSH ONETIME ERNIE Last Admin: 10/24/16 19:20 Dose: 15 mg Sodium Chloride (Saline Flush) 10 ml FLUSH ASDIRECTED PRN PRN Reason: Keep Vein Open Last Admin: 10/24/16 17:44 Dose: 10 ml Labs: Laboratory Tests 10/24/16 10/24/16 Range/Units 17:45 17:45 WBC 7.73 (4.23-9.07) K/mm3 RBC 4.06 L (4.63-6.08) M/mm3 Hgb 11.6 L (13.7-17.5) gm/L Hct 35.9 L (40.1-51.0) % MCV 88.4 (79.0-92.2) fl MCH 28.6 (25.7-32.2) pg MCHC 32.3 (32.2-35.5) g/dl RDW Std Deviation 42.9 (35.1-43.9) fL Plt Count 313 (163-337) K/mm3 MPV 10.1 (9.4-12.3) fl Neut % (Auto) 66.9 (34.0-67.9) % Lymph % (Auto) 19.7 L (21.8-53.1) % [place] % (Auto) 10.5 (5.3-12.2) % Eos % (Auto) 2.5 (0.8-7.0) Baso % (Auto) 0.3 (0.1-1.2) % Neut # (Auto) 5.18 (1.78-5.38) K/mm3 Lymph # (Auto) 1.52 (1.32-3.57) K/mm3 [place] # (Auto) 0.81 (0.30-0.82) K/mm3 Eos # (Auto) 0.19 (0.04-0.54) K/mm3 Baso # (Auto) 0.02 (0.01-0.08) K/mm3 Sodium 140 (136-145) mEq/L Potassium 4.5 (3.5-5.1) mEq/L Chloride 104 (98-107) mEq/L Carbon Dioxide 23 (21-32) mEq/L Anion Gap 17.5 H (5-15) BUN 22 H (7-18) mg/dL Creatinine 1.4 H (0.7-1.3) mg/dL Est Cr Clr Drug Dosing 42.73 mL/min Estimated GFR (MDRD) 49 (>60) mL/min BUN/Creatinine Ratio 15.7 (14-18) Glucose 77 L (83-115) mg/dL Calcium 9.1 (8.5-10.1) mg/dL Total Bilirubin 0.5 (0.2-1.0) mg/dL AST 20 (15-37) U/L ALT 20 (16-63) U/L Alkaline Phosphatase 86 (46-116) U/L Troponin I < 0.017 (0.00-0.056) ng/mL Total Protein 7.6 (6.4-8.2) g/dl Albumin 4.0 (3.4-5.0) g/dl Globulin 3.6 gm/dL Albumin/Globulin Ratio 1.1 (1-2) Meds: Medications Generic Name Dose Route Start Last Admin Trade Name Freq PRN Reason Stop Dose Admin Sodium Chloride 1,000 mls @ 150 mls/hr 10/24/16 17:45 10/24/16 17:44 Normal Saline IV 150 mls/hr ASDIRECTED ERNIE Administration Ketorolac Tromethamine 15 mg 10/24/16 19:30 10/24/16 19:20 Toradol IVPUSH 15 mg ONETIME ERNIE Administration Sodium Chloride 10 ml 10/24/16 17:34 10/24/16 17:44 Saline Flush FLUSH 10 ml ASDIRECTED PRN Administration Keep Vein Open Discontinued Medications Generic Name Dose Route Start Last Admin Trade Name Freq PRN Reason Stop Dose Admin Acetaminophen 650 mg 10/24/16 19:16 10/24/16 19:21 Tylenol PO 10/24/16 19:17 650 mg NOW ONE Administration Hydromorphone HCl 0.25 mg 10/24/16 17:34 10/24/16 17:44 Dilaudid IVPUSH 10/24/16 17:35 0.25 mg ONETIME ONE Administration - Re-Assessments/Exams Free Text/Narrative Re-Assessment/Exam: 10/24/16 19:48 X-rays of the hip show right total hip, no apparent abnormality 10/24/16 19:58. We did give the patient Dilaudid 0.25 mg IV about 2 hours ago shortly after arrival. About 25 minutes ago we did give Tylenol 650 mg by mouth and Toradol 15 mg IV. He does feel much better with those meds working for him. We did get him up to walk now and he was able to walk with a walker with minimal discomfort. Discharge instructions as documented. Departure - Departure Time of Disposition: 20:15 Disposition: Home, Self-Care 01 Condition: Fair Clinical Impression: Hip pain Qualifiers: Laterality: right Qualified Code(s): M25.551 - Pain in right hip - Discharge Information Referrals: Hira Ruby MD [Primary Care Provider] - Additional Instructions: Drink plenty of water to maintain hydration, Tylenol 500 mg 3-4 times daily, you may take one half tablet hydrocodone up to 2 or 3 times daily if needed for severe pain not relieved by Tylenol. Continue to use walker, follow-up with Dr. Quiles later this week or early next week if symptoms not resolving as expected. Return to ED as needed if symptoms worsening in any way. - My Orders Last 24 Hours: My Active Orders 10/24/16 17:34 EKG 12 Lead [EKG Documentation Completion] [RC] STAT Sodium Chloride 0.9% [Saline Flush] 10 ml FLUSH ASDIRECTED PRN Peripheral IV Insertion Adult [OM.PC] Stat 10/24/16 17:35 Peripheral IV Care [RC] . DIRECTED 10/24/16 17:45 Sodium Chloride 0.9% [Normal Saline] 1,000 ml IV ASDIRECTED 10/24/16 18:27 Hip Min 2V or 3V w Pelvis Rt [CR] Stat 10/24/16 19:30 Ketorolac [Toradol] 15 mg IVPUSH ONETIME - Assessment/Plan Last 24 Hours: My Active Orders 10/24/16 17:34 EKG 12 Lead [EKG Documentation Completion] [RC] STAT Sodium Chloride 0.9% [Saline Flush] 10 ml FLUSH ASDIRECTED PRN Peripheral IV Insertion Adult [OM.PC] Stat 10/24/16 17:35 Peripheral IV Care [RC] . DIRECTED 10/24/16 17:45 Sodium Chloride 0.9% [Normal Saline] 1,000 ml IV ASDIRECTED 10/24/16 18:27 Hip Min 2V or 3V w Pelvis Rt [CR] Stat 10/24/16 19:30 Ketorolac [Toradol] 15 mg IVPUSH ONETIME
--- NOTE | 2016-10-25 07:19 | CR ---
Pelvis and right hip: AP view of the pelvis was obtained as well as AP and frog-leg lateral views of the right hip. Comparison: Previous right hip study and pelvis exam of 06/20/16. Right hip prosthesis is seen. Previous lumbar spine surgery is noted. Joint space within the left hip is maintained. Vascular calcification is present. No discrete fracture or other bony abnormality is seen. Impression: 1. Incidental findings as noted above. Nothing acute is appreciated on AP pelvis or on two-view right hip exam. Diagnostic code #2
== END 2016-10-24 20:11 | disposition home or self-care (01) ==
LOC: JD.ED 17:13
DX: M25.551 Pain in right hip (principal); E78.00 Pure hypercholesterolemia, unspecified; I10 Essential (primary) hypertension; I48.91 Unspecified atrial fibrillation; E11.9 Type 2 diabetes mellitus without complications; M19.90 Unspecified osteoarthritis, unspecified site; Z79.82 Long term (current) use of aspirin; Z79.899 Other long term (current) drug therapy; Z86.73 Personal history of transient ischemic attack (TIA), and cerebral infarction without residual deficits; Z86.2 Personal history of diseases of the blood and blood-forming organs and certain disorders involving the immune mechanism; Z98.49 Cataract extraction status, unspecified eye; Z96.649 Presence of unspecified artificial hip joint; Z87.891 Personal history of nicotine dependence
CPT/HCPCS: 36415; 73502; 80053; 84484; 85025; 93005; 96361; 96374; 96375; 99284; A9270; J1170; J1885; J7040; J7050

== ENCOUNTER 2016-10-25 16:56 | Emergency (ER) | payer MEDICARE, BC ==
[2016-10-25 17:12] VITALS: BP 165/77
[2016-10-25] MEDS ORDERED: Sodium Chloride 0.9% 10 ML Syringe FLUSH PRN (17:47)
[2016-10-25] MEDS ORDERED: HYDROmorphone 0.5 MG/0.5 ML Syringe IVPUSH ONE (17:47)
[2016-10-25] MEDS ORDERED: Ketorolac 15 MG/ML SDV IVPUSH ONE (17:48)
--- NOTE | 2016-10-25 17:54 | EDM.PDOC ---
ED HPI GENERAL MEDICAL PROBLEM - General Chief Complaint: Lower Extremity Injury/Pain Stated Complaint: LEG WEAKNESS Time Seen by Provider: 10/25/16 17:33 Source of Information: Reports: Patient History Limitations: Reports: No Limitations - History of Present Illness INITIAL COMMENTS - FREE TEXT/NARRATIVE: 80-year-old male presents with his and son for evaluation treatment of right hip pain. Reportedly the pain is chronic and has been going on for some time. Patient was seen last night in the ER. X-rays of the right hip done. He was given Dilaudid and Toradol. Sent home with hydrocodone. Son reports that he did not fill the hydrocodone. Patient has had Tylenol at around 3:30 this morning and 9:30 this morning but no other treatments. Patient is currently complaining of pain to the right lateral hip with radiation down to the knee. He denies any back pain, numbness, tingling, urinary incontinence, stool incontinence or saddle anesthesia. Son is concerned as the patient and his live at home by themselves in [place], approximately 20 miles away. Reports that he was unable to walk yesterday and today due to the pain and weakness. Patient was previously given tramadol for the pain. Reports that he does not like the way the tramadol made him feel. They have since discarded the tramadol. Dr. Quiles presented to the ER prior to the patient being seen. He has reviewed the right hip x-rays from yesterday and has been in contact with the patient and his family. Dr. Quiles believes the pain is likely stemming from his back and does not believe his current pain is from his hip. Recommended pain management and admission if needed. Dr. Quiles is currently working on having the patient see Dr. Vasquez, orthopedics who specializes in spinal surgery, in [place]. Patient has a past medical history of spinal stenosis and had a previous back surgery sometime ago in [place]. Patient had a right hip replacement in May of this year by Dr. Quiles. Location: Reports: Lower Extremity, Right Right Hip Pain Score (Numeric/FACES): 6 - Related Data Allergies Allergy/AdvReac Type Severity Reaction Status Date / Time No Known Allergies Allergy Verified 09/11/16 01:49 Home Meds: Home Meds Ascorbate Calcium [Vitamin C] 500 mg PO DAILY 10/09/15 [History] Aspirin [Halfprin] 81 mg PO DAILY 10/09/15 [History] Lisinopril 20 mg PO BID 10/09/15 [History] glipiZIDE [Glucotrol] 5 mg PO DAILY 10/09/15 [History] Acetaminophen [Tylenol] 650 mg PO TID 10/21/15 [History] Metoprolol Tartrate 12.5 mg PO BID 06/17/16 [History] Pravastatin Sodium 5 mg PO BEDTIME 06/21/16 [History] Docusate Sodium [Colace] 100 mg PO BID 10/24/16 [History] Past Medical History HEENT History: Reports: Impaired Vision Other HEENT History: Wears glasses Cardiovascular History: Reports: Afib, High Cholesterol, Hypertension Respiratory History: Reports: None Gastrointestinal History: Reports: None Genitourinary History: Reports: BPH, Other (See Below) Other Genitourinary History: urinary retention [employer] History: 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 Psychiatric History: Reports: None Endocrine/Metabolic History: Reports: Diabetes, Type II Hematologic History: Reports: Anemia Immunologic History: Reports: None Oncologic (Cancer) History: Reports: None Dermatologic History: Reports: None - Infectious Disease History Infectious Disease History: Reports: Chicken Pox - Past Surgical History Head Surgeries/Procedures: Reports: None HEENT Surgical History: Reports: Cataract Surgery, Naso-Sinus Surgery GI Surgical History: Reports: Other (See Below) Male Surgical History: Reports: TURP-Transurethral Resection of Prostate Musculoskeletal Surgical History: Reports: Hip Replacement Social & Family History - Family History Family Medical History: Noncontributory - Tobacco Use Smoking Status *Q: Former Smoker Packs/Tins Daily: 1.5 Used Tobacco, but Quit: No Month Tobacco Last Used: 1997 Second Hand Smoke Exposure: No - Caffeine Use Caffeine Use: Reports: Coffee Other Caffeine Use: 5 per day - Alcohol Use Days Per Week of Alcohol Use: 2 Number of Drinks Per Day: 2 Total Drinks Per Week: 4 - Recreational Drug Use Recreational Drug Use: No - Living Situation & Occupation Living situation: Reports: , with Spouse Occupation: Retired Review of Systems - Review of Systems Review Of Systems: See Below GI/Abdominal: Reports: Other (denies stool incontinence) Genitourinary: Denies: Incontinence Musculoskeletal: Reports: Leg Pain (right lateral leg from the right hip to the right knee). Denies: Back Pain Skin: Denies: Erythema Neurological: Reports: Difficulty Walking, Weakness (right leg), Other (denies saddle anesthesia). Denies: Numbness, Tingling ED EXAM, GENERAL - Physical Exam Exam: See Below Exam Limited By: No Limitations General Appearance: Alert, WD/WN, No Apparent Distress Respiratory/Chest: No Respiratory Distress Cardiovascular: Normal Peripheral Pulses, No Murmur, Irregularly Irregular Peripheral Pulses: 2+: Dorsalis Pedis (L), Dorsalis Pedis (R) Back Exam: Normal Inspection, Paraspinal Tenderness (right SI joint pain), Other (scar from previous back surgery; negative straight leg raise). No: Vertebral Tenderness Extremities: Normal Inspection Neurological: Alert, Oriented, Normal Cognition Psychiatric: Normal Affect, Normal Mood Skin Exam: Warm, Dry, Normal Color. No: Erythema Course - Vital Signs Last Recorded V/S: Last Vital Signs Temp 36.6 C 10/25/16 17:06 Pulse 72 10/25/16 17:06 Resp 16 10/25/16 17:06 BP 165/77 H 10/25/16 17:06 Pulse Ox 100 10/25/16 17:06 - Orders/Labs/Meds Orders: Active Orders 24 hr Category Date Time Status Peripheral IV Care [RC] . DIRECTED Care 10/25/16 17:48 Active Lumbar Spine 2 or 3V [CR] Stat Exams 10/25/16 17:49 Taken Sodium Chloride 0.9% [Saline Flush] Med 10/25/16 17:47 Active 10 ml FLUSH ASDIRECTED PRN Peripheral IV Insertion Adult [OM.PC] Routine Oth 10/25/16 17:47 Ordered Medication Orders Sodium Chloride (Saline Flush) 10 ml FLUSH ASDIRECTED PRN PRN Reason: Keep Vein Open Last Admin: 10/25/16 18:14 Dose: 10 ml Meds: Medications Generic Name Dose Route Start Last Admin Trade Name Freq PRN Reason Stop Dose Admin Sodium Chloride 10 ml 10/25/16 17:47 10/25/16 18:14 Saline Flush FLUSH 10 ml ASDIRECTED PRN Administration Keep Vein Open Discontinued Medications Generic Name Dose Route Start Last Admin Trade Name Freq PRN Reason Stop Dose Admin Hydromorphone HCl 0.25 mg 10/25/16 17:47 10/25/16 18:10 Dilaudid IVPUSH 10/25/16 17:48 0.25 mg ONETIME ONE Administration Ketorolac Tromethamine 15 mg 10/25/16 17:48 10/25/16 18:05 Toradol IVPUSH 10/25/16 17:49 15 mg ONETIME ONE Administration - Radiology Interpretation Free Text/Narrative:: lumbar spine xrays reviewed by myself and Dr. Boateng. No acute fracture. Hardware from previous surgery in place. Atherosclerosis present. - Re-Assessments/Exams Free Text/Narrative Re-Assessment/Exam: 10/25/16 20:42 Son is concerned as patient lives at home with his in [place]. I had nursing staff run an [facility]. He does not meet criteria for inpatient or observation. He was given 0.25 mg IV Dilaudid 15 and mg IV Toradol initially when he arrived. He has been pain free since receiving these medications. I had him get up and sit on the edge of the bed. He was again pain-free. I had him walk a lap around the ER. He reported some pain but this was tolerable and greatly improved since earlier. I did offer them hospitalization but informed them that Medicare would likely not cover this as he does not meet criteria for inpatient or observation. Son has gone and pickup his hydrocodone and they now have this available for him. We will discharge him home at this time. Discharge instructions this document. Departure - Departure Time of Disposition: 20:43 Disposition: Home, Self-Care 01 Condition: Fair Clinical Impression: Hip pain Qualifiers: Laterality: right Qualified Code(s): M25.551 - Pain in right hip - Discharge Information Instructions: Hip Pain Referrals: Hira Ruby MD [Primary Care Provider] - Nolan Quiles MD [Physician] - Forms: ED Department Discharge Additional Instructions: you was given medication in the ER that can affect your ability to drive and operate machinery. Do not drive or operate machinery within 12 hours of taking prescription narcotic pain medication. Take the ibuprofen 400 mg every 6 hours. Take the hydrocodone 1/2-1 tab every 4- 6 hours for pain. No driving or operating machine within 12 hours of taking the hydrocodone. You may use ice or heat to the sore areas. Contact Dr. Quiles's office tomorrow to see where your are at in the referral process to seen Dr. Vasquez in [place]. Please return to the ER if your symptoms change or worsen. - My Orders Last 24 Hours: My Active Orders 10/25/16 17:47 Sodium Chloride 0.9% [Saline Flush] 10 ml FLUSH ASDIRECTED PRN Peripheral IV Insertion Adult [OM.PC] Routine 10/25/16 17:48 Peripheral IV Care [RC] . DIRECTED 10/25/16 17:49 Lumbar Spine 2 or 3V [CR] Stat - Assessment/Plan Last 24 Hours: My Active Orders 10/25/16 17:47 Sodium Chloride 0.9% [Saline Flush] 10 ml FLUSH ASDIRECTED PRN Peripheral IV Insertion Adult [OM.PC] Routine 10/25/16 17:48 Peripheral IV Care [RC] . DIRECTED 10/25/16 17:49 Lumbar Spine 2 or 3V [CR] Stat
--- NOTE | 2016-10-27 08:39 | CR ---
Lumbar spine: AP, lateral and coned-down lateral views centered to the lumbosacral junction were obtained. Comparison: No previous lumbar spine imaging. Transpedicle screws are noted between L4-L5 and L5-S1. Moderate disc space narrowing is noted at L2-L3. Mild disc space narrowing noted at L3-L4. Mild compression deformity is seen of T11. Scattered endplate osteophytes are seen. Bony structures are osteopenic. Right hip prosthesis is noted. Bowel gas pattern is normal. Vascular calcification is noted. Impression: 1. Compression deformity at T11 which is most likely old if patient has had no acute symptoms. 2. Degenerative change and previous surgery. Diagnostic code #2 MTDD
== END 2016-10-25 21:00 | disposition home or self-care (01) ==
LOC: JD.ED 16:56
DX: M25.551 Pain in right hip (principal); Z87.891 Personal history of nicotine dependence; Z96.649 Presence of unspecified artificial hip joint; I10 Essential (primary) hypertension; E78.00 Pure hypercholesterolemia, unspecified; I48.91 Unspecified atrial fibrillation; M19.90 Unspecified osteoarthritis, unspecified site; E11.9 Type 2 diabetes mellitus without complications; Z86.73 Personal history of transient ischemic attack (TIA), and cerebral infarction without residual deficits; Z86.2 Personal history of diseases of the blood and blood-forming organs and certain disorders involving the immune mechanism; Z98.49 Cataract extraction status, unspecified eye; Z98.890 Other specified postprocedural states; Z79.82 Long term (current) use of aspirin; Z79.899 Other long term (current) drug therapy; Z96.641 Presence of right artificial hip joint
CPT/HCPCS: 72100; 96374; 96375; 99284; J1170; J1885; J7050

== ENCOUNTER 2017-01-04 19:15 | Emergency (ER) | payer MEDICARE, BC ==
[2017-01-04 19:24] VITALS: BP 187/87
--- NOTE | 2017-01-04 20:21 | EDM.PDOC ---
ED HPI GENERAL MEDICAL PROBLEM - General Chief Complaint: Back Pain or Injury Stated Complaint: ZACHERY AMB Time Seen by Provider: 01/04/17 19:18 Source of Information: Reports: Patient, Family (Son, ), RN Notes Reviewed History Limitations: Reports: No Limitations - History of Present Illness INITIAL COMMENTS - FREE TEXT/NARRATIVE: The patient underwent lumbar surgery (L3/L4 microdiscectomy? - paperwork was not brought with the patient) 8 days ago, 12/27/[address] Vasquez at [facility]. According to the patient's son, the patient was discharged home the same day, but had to be readmitted and taken back to the operating room that same night for some sort of a complication. He was ultimately discharged to [facility] for rehabilitation. He'll, 01/02/2017. He was discharged with Keflex 500 mg po QID. He states that his rehabilitation has been going well, and that he is ambulating with a walker. He presents to the ED at this time, however, because of continuous leak of clear fluid from his surgical wound. The family states that Dr. Vasquez has been notified at least twice, including today, but that he did not have any recommendations. The patient is complaining of a headache, but denies recent fever, nausea, vomiting, or visual changes. The patient's PCP is Dr. Ruby. Headache Pain Score (Numeric/FACES): 4 - Related Data Allergies Allergy/AdvReac Type Severity Reaction Status Date / Time No Known Allergies Allergy Verified 12/15/16 10:37 Home Meds: Home Meds Ascorbate Calcium [Vitamin C] 500 mg PO DAILY 10/09/15 [History] Lisinopril 20 mg PO BID 10/09/15 [History] glipiZIDE [Glucotrol] 5 mg PO DAILY 10/09/15 [History] Metoprolol Tartrate 12.5 mg PO BID 06/17/16 [History] Pravastatin Sodium 5 mg PO BEDTIME 06/21/16 [History] Docusate Sodium [Colace] 200 mg PO BID 10/24/16 [History] Cephalexin 500 mg PO QID 01/04/17 [History] Hydrocodone/Acetaminophen [[place] 5-325] 1 tab PO Q6H PRN 01/04/17 [History] Hydrocodone/Acetaminophen [[place] 5-325] 2 tab PO Q6H PRN 01/04/17 [History] Ibuprofen 400 mg PO Q6H PRN 01/04/17 [History] Sennosides [Senna] 1 tab PO BID 01/04/17 [History] Tamsulosin [Flomax] 0.4 mg PO DAILY 01/04/17 [History] Past Medical History HEENT History: Reports: Impaired Vision Other HEENT History: Wears glasses Cardiovascular History: Reports: Afib (chronic), High Cholesterol, Hypertension Genitourinary History: Reports: BPH, Neurogenic Bladder Musculoskeletal History: Reports: Osteoarthritis, Other (See Below) (DDD, spinal stenosis) Neurological History: Reports: CVA, Other (See Below) (Lumbar radiculopathy) Endocrine/Metabolic History: Reports: Diabetes, Type II Hematologic History: Reports: Anemia - Infectious Disease History Infectious Disease History: Reports: Chicken Pox - Past Surgical History HEENT Surgical History: Reports: Cataract Surgery, Naso-Sinus Surgery, Oral Surgery ([place] teeth extraction) Male Surgical History: Reports: TURP-Transurethral Resection of Prostate Neurological Surgical History: Reports: Lumbar Spine (Lumbar fusion 01/09/2016, per Dr. Martínez at [facility]. L3/L4 microdiscectomy 12/27/2016, per Dr. Vasquez at [facility].) Musculoskeletal Surgical History: Reports: Hip Replacement (right) Social & Family History - Family History Family Medical History: Noncontributory - Tobacco Use Smoking Status *Q: Former Smoker Packs/Tins Daily: 1.5 Month Tobacco Last Used: Quit 1997 Second Hand Smoke Exposure: No - Caffeine Use Caffeine Use: Reports: None Other Caffeine Use: 5 per day - Alcohol Use Alcohol Use History: Yes Days Per Week of Alcohol Use: 2 Number of Drinks Per Day: 2 Total Drinks Per Week: 4 Alcohol Use Frequency: Socially - Recreational Drug Use Recreational Drug Use: No - Living Situation & Occupation Living situation: Reports: , with Spouse Occupation: Retired ED ROS GENERAL - Review of Systems Review Of Systems: See Below Constitutional: Reports: No Symptoms HEENT: Reports: No Symptoms Respiratory: Reports: No Symptoms Cardiovascular: Reports: No Symptoms Endocrine: Reports: No Symptoms GI/Abdominal: Reports: No Symptoms : Reports: No Symptoms Musculoskeletal: Reports: No Symptoms Skin: Reports: No Symptoms Neurological: Reports: Headache (as per the HPI) Psychiatric: Reports: No Symptoms Hematologic/Lymphatic: Reports: No Symptoms Immunologic: Reports: No Symptoms ED EXAM, GENERAL - Physical Exam Exam: See Below Exam Limited By: No Limitations General Appearance: Alert, WD/WN, No Apparent Distress Back Exam: Other (6 cm clean surgical wound over the lumbar spine, with occasional drops of clear fluid emanating. No significant tenderness when palpated. Well-healed surgical wound inferior to the new surgical wound.) Course - Vital Signs Last Recorded V/S: Last Vital Signs Temp 36.2 C 01/04/17 19:18 Pulse 79 01/04/17 19:18 Resp 18 01/04/17 19:18 BP 187/87 H 01/04/17 19:18 Pulse Ox 99 01/04/17 19:18 - Re-Assessments/Exams Free Text/Narrative Re-Assessment/Exam: 01/04/17 20:15 [facility] Call at [facility] was contacted at 20:03. Dr. Vasquez is not applications packager, therefore I spoke to the Neurosurgeon Dr. Holt at 20:08, however, he stated that it would be Dr. Vasquez's orthopedic partner, not neurosurgery who would deal with this issue. I then spoke with Dr. Clemens at 20:12. He is going to contact Dr. Vasquez, then call me back with a plan. 01/04/17 20:[address] Giang at 20:19. He would like us to transfer the patient to [facility], where he will be directly admitted, and likely taken to the OR tomorrow, with Dr. Vasquez. The above was discussed with the patient and his family. The patient believes that he would be more comfortable going by ambulance, where he can remain supine. Departure - Departure Time of Disposition: 20:38 Disposition: DC/Tfer to Acute Hospital 02 Condition: Good Clinical Impression: Postoperative CSF leak - Discharge Information
== END 2017-01-04 21:15 ==
LOC: JD.ED 19:15
DX: G97.82 Other postprocedural complications and disorders of nervous system (principal); G96.0 Cerebrospinal fluid leak; I10 Essential (primary) hypertension; E78.00 Pure hypercholesterolemia, unspecified; E11.9 Type 2 diabetes mellitus without complications; Z86.2 Personal history of diseases of the blood and blood-forming organs and certain disorders involving the immune mechanism; Z98.1 Arthrodesis status; Z87.891 Personal history of nicotine dependence; Z79.84 Long term (current) use of oral hypoglycemic drugs; Z79.899 Other long term (current) drug therapy; Z98.890 Other specified postprocedural states
CPT/HCPCS: 99283; 99285

== ENCOUNTER 2017-01-13 16:47 | Emergency (ER) | payer MEDICARE, BC ==
[2017-01-13 16:55] VITALS: BP 153/68
[2017-01-13] MEDS ORDERED: Sodium Chloride 0.9% 10 ML Syringe FLUSH PRN (17:19)
--- NOTE | 2017-01-13 17:40 | EDM.PDOC ---
ED HPI GENERAL MEDICAL PROBLEM - General Chief Complaint: Back Pain or Injury Stated Complaint: Back pain Time Seen by Provider: 01/13/17 17:00 Source of Information: Reports: Patient, EMS, Family, Jail Records, RN Notes Reviewed History Limitations: Reports: No Limitations - History of Present Illness INITIAL COMMENTS - FREE TEXT/NARRATIVE: 81 year old male is brought to the ED today via [facility] due to concerns of increasing back pain, decreased motility, and possibly a fever. The patient had a lumbar surgery with Dr. Vasquez at [facility] on 12/27/16. Chart review reveals that surgery was performed at L3/L4. Surgery was performed for ruptured discs in his spine. 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 He has subsequently had 2 or 3 surgeries since that time for the CSF leak. He was discharged from [facility] two days ago (12/11/16). He was discharged to [facility] for rehab. alf reports that the patient's pain has been uncontrolled. He's had decreased motility and has not been able to walk. He was previous ambulating with assistance. There is no report of CSF leakage from skilled nursing staff. No reports of fever from skilled nursing staff. EMS reports that the patient was in an irregular rhythm in the 60s upon arrival. They also reported a temp of 102. On arrival the patient rates his pain 0/10. He has no concerns at this time. He denies fever, cough, nausea, vomiting, diarrhea, loss of bowel or bladder function. No numbness or tingling to his legs. No lower extremity swelling. Son and are present and have no additional concerns. Lower Back Pain Score (Numeric/FACES): 5 - Related Data Allergies Allergy/AdvReac Type Severity Reaction Status Date / Time No Known Allergies Allergy Verified 12/15/16 10:37 Home Meds: Home Meds Ascorbate Calcium [Vitamin C] 500 mg PO DAILY 01/13/17 [History] Aspirin 81 mg PO DAILY 01/13/17 [History] Cephalexin 500 mg PO QID 01/13/17 [History] Dabigatran Etexilate Mesylate [Pradaxa] 150 mg PO BID 01/13/17 [History] Docusate Sodium [Colace] 200 mg PO DAILY PRN 01/13/17 [History] Hydrocodone/Acetaminophen [[place] 5-325 Tablet] 2 each PO Q6H PRN 01/13/17 [ History] Hydrocodone/Acetaminophen [[place] 5-325 Tablet] 2 each PO Q6H PRN 01/13/17 [ History] Ibuprofen 400 mg PO Q6H PRN 01/13/17 [History] Lisinopril [Prinivil] 20 mg PO BID 01/13/17 [History] Metoprolol Tartrate 12.5 mg PO BID 01/13/17 [History] Pravastatin Sodium 5 mg PO BEDTIME 01/13/17 [History] Sennosides [Senna] 8.6 mg PO BID 01/13/17 [History] Tamsulosin [Flomax] 0.4 mg PO DAILY 01/13/17 [History] amLODIPine [Norvasc] 5 mg PO DAILY 01/13/17 [History] glipiZIDE [Glucotrol] 5 mg PO DAILY 01/13/17 [History] Past Medical History HEENT History: Reports: Impaired Vision Other HEENT History: Wears glasses Cardiovascular History: Reports: Afib, High Cholesterol, Hypertension Respiratory History: Reports: None Gastrointestinal History: Reports: None Genitourinary History: Reports: BPH, Neurogenic Bladder Other Genitourinary History: urinary retention INSULATION INSPECTOR History: Reports: None Musculoskeletal History: Reports: Osteoarthritis Other Musculoskeletal History: spinal stenosis, herniated disc surgery Neurological History: Reports: CVA Other Neuro History: 09/2015, no affects. Psychiatric History: Reports: None Endocrine/Metabolic History: Reports: Diabetes, Type II Hematologic History: Reports: Anemia Immunologic History: Reports: None Oncologic (Cancer) History: Reports: None Dermatologic History: Reports: None - Infectious Disease History Infectious Disease History: Reports: Chicken Pox - Past Surgical History Head Surgeries/Procedures: Reports: None HEENT Surgical History: Reports: Cataract Surgery, Naso-Sinus Surgery Male Surgical History: Reports: TURP-Transurethral Resection of Prostate Neurological Surgical History: Reports: None Social & Family History - Family History Family Medical History: Noncontributory - Tobacco Use Smoking Status *Q: Unknown Ever Smoked Packs/Tins Daily: 1.5 Used Tobacco, but Quit: No Month Tobacco Last Used: 1997 Second Hand Smoke Exposure: No - Caffeine Use Caffeine Use: Reports: None Other Caffeine Use: 5 per day - Alcohol Use Days Per Week of Alcohol Use: 2 Number of Drinks Per Day: 2 Total Drinks Per Week: 4 - Recreational Drug Use Recreational Drug Use: No - Living Situation & Occupation Living situation: Reports: , with Spouse Occupation: Retired ED ROS GENERAL - Review of Systems Review Of Systems: See Below Constitutional: Reports: No Symptoms, Weakness. Denies: Fever, Chills Respiratory: Reports: No Symptoms. Denies: Shortness of Breath, Cough Cardiovascular: Reports: No Symptoms. Denies: Chest Pain, Palpitations GI/Abdominal: Reports: No Symptoms. Denies: Abdominal Pain, Diarrhea, Nausea, Vomiting Musculoskeletal: Reports: Back Pain Skin: Reports: Wound. Denies: Erythema Neurological: Reports: Weakness (generalized). Denies: Headache, Numbness, Tingling ED EXAM, GENERAL - Physical Exam Exam: See Below Exam Limited By: No Limitations General Appearance: Alert, WD/WN, No Apparent Distress Respiratory/Chest: No Respiratory Distress, Lungs Clear, Normal Breath Sounds, No Accessory Muscle Use, Chest Non-Tender Cardiovascular: Normal Peripheral Pulses, No Murmur, Irregularly Irregular GI/Abdominal: Normal Bowel Sounds, Soft, Non-Tender Extremities: Other (dressing removed to lumbar spine. No drainage on the dressing. No surrounding erythema or purulent drainage. No sign of infection. No drainage. Wound margins are well approximated. ). No: Increased Warmth, Redness Course - Vital Signs Last Recorded V/S: Last Vital Signs Temp 98.4 F 01/13/17 16:50 Pulse 64 01/13/17 16:50 Resp BP 153/68 H 01/13/17 16:50 Pulse Ox 98 01/13/17 16:50 - Orders/Labs/Meds Orders: Active Orders 24 hr Category Date Time Status Cardiac Monitoring [RC] . DIRECTED Care 01/13/17 17:20 Active EKG Documentation Completion [RC] ASDIRECTED Care 01/13/17 17:20 Active Peripheral IV Care [RC] . DIRECTED Care 01/13/17 17:20 Active CULTURE BLOOD [BC] Stat Lab 01/13/17 17:35 Received CULTURE BLOOD [BC] Stat Lab 01/13/17 17:45 Received Sodium Chloride 0.9% [Saline Flush] Med 01/13/17 17:19 Active 10 ml FLUSH ASDIRECTED PRN Blood Culture x2 Reflex Set [OM.PC] Stat Oth 01/13/17 17:20 Ordered Peripheral IV Insertion Adult [OM.PC] Stat Oth 01/13/17 17:20 Ordered EKG 12 Lead [EK] Stat Ther 01/13/17 17:20 Ordered Medication Orders Sodium Chloride (Saline Flush) 10 ml FLUSH ASDIRECTED PRN PRN Reason: Keep Vein Open Labs: Laboratory Tests 01/13/17 01/13/17 01/13/17 Range/Units 17:35 17:35 17:45 WBC 9.46 H (4.23-9.07) K/mm3 RBC 4.14 L (4.63-6.08) M/mm3 Hgb 11.3 L (13.7-17.5) gm/L Hct 35.0 L (40.1-51.0) % MCV 84.5 (79.0-92.2) fl MCH 27.3 (25.7-32.2) pg MCHC 32.3 (32.2-35.5) g/dl RDW Std Deviation 49.7 H (35.1-43.9) fL Plt Count 276 (163-337) K/mm3 MPV 10.6 (9.4-12.3) fl Neutrophils % (Manual) 61 H (40-60) % Band Neutrophils % 0 (0-10) % Lymphocytes % (Manual) 23 (20-40) % Atypical Lymphs % 0 % Monocytes % (Manual) 3 (2-10) % Eosinophils % (Manual) 13 H (0.8-7.0) % Basophils % (Manual) 0 L (0.2-1.2) Platelet Estimate Adequate Anisocytosis 1+ slight Macrocytosis 1+ slight Ovalocytes 1+ slight RBC Morph Comment Not Reportable Sodium 138 (136-145) mEq/L Potassium 4.0 (3.5-5.1) mEq/L Chloride 104 (98-107) mEq/L Carbon Dioxide 25 (21-32) mEq/L Anion Gap 13.0 (5-15) BUN 17 (7-18) mg/dL Creatinine 1.1 (0.7-1.3) mg/dL Est Cr Clr Drug Dosing 53.46 mL/min Estimated GFR (MDRD) > 60 (>60) mL/min BUN/Creatinine Ratio 15.5 (14-18) Glucose 107 (83-115) mg/dL Lactic Acid 1.6 (0.4-2.0) mmol/L Calcium 8.6 (8.5-10.1) mg/dL Total Bilirubin 0.4 (0.2-1.0) mg/dL AST 46 H (15-37) U/L ALT 54 (16-63) U/L Alkaline Phosphatase 140 H (46-116) U/L Total Protein 6.6 (6.4-8.2) g/dl Albumin 2.6 L (3.4-5.0) g/dl Globulin 4.0 gm/dL Albumin/Globulin Ratio 0.7 L (1-2) Urine Color (Yellow) Urine Appearance (Clear) Urine pH (5.0-8.0) Ur Specific [place] (1.005-1.030) Urine Protein (Negative) Urine Glucose (UA) (Negative) Urine Ketones (Negative) Urine Occult Blood (Negative) Urine Nitrite (Negative) Urine Bilirubin (Negative) Urine Urobilinogen (0.2-1.0) Ur Leukocyte Esterase (Negative) Urine RBC (0-5) /hpf Urine WBC (0-5) /hpf Ur Epithelial Cells (0-5) /hpf Urine Bacteria (FEW) /hpf Urine Mucus (FEW) /hpf 01/13/17 Range/Units 19:13 WBC (4.23-9.07) K/mm3 RBC (4.63-6.08) M/mm3 Hgb (13.7-17.5) gm/L Hct (40.1-51.0) % MCV (79.0-92.2) fl MCH (25.7-32.2) pg MCHC (32.2-35.5) g/dl RDW Std Deviation (35.1-43.9) fL Plt Count (163-337) K/mm3 MPV (9.4-12.3) fl Neutrophils % (Manual) (40-60) % Band Neutrophils % (0-10) % Lymphocytes % (Manual) (20-40) % Atypical Lymphs % % Monocytes % (Manual) (2-10) % Eosinophils % (Manual) (0.8-7.0) % Basophils % (Manual) (0.2-1.2) Platelet Estimate Anisocytosis Macrocytosis Ovalocytes RBC Morph Comment Sodium (136-145) mEq/L Potassium (3.5-5.1) mEq/L Chloride (98-107) mEq/L Carbon Dioxide (21-32) mEq/L Anion Gap (5-15) BUN (7-18) mg/dL Creatinine (0.7-1.3) mg/dL Est Cr Clr Drug Dosing mL/min Estimated GFR (MDRD) (>60) mL/min BUN/Creatinine Ratio (14-18) Glucose (83-115) mg/dL Lactic Acid (0.4-2.0) mmol/L Calcium (8.5-10.1) mg/dL Total Bilirubin (0.2-1.0) mg/dL AST (15-37) U/L ALT (16-63) U/L Alkaline Phosphatase (46-116) U/L Total Protein (6.4-8.2) g/dl Albumin (3.4-5.0) g/dl Globulin gm/dL Albumin/Globulin Ratio (1-2) Urine Color Yellow (Yellow) Urine Appearance Clear (Clear) Urine pH 6.5 (5.0-8.0) Ur Specific [place] 1.020 (1.005-1.030) Urine Protein Negative (Negative) Urine Glucose (UA) Negative (Negative) Urine Ketones Negative (Negative) Urine Occult Blood Negative (Negative) Urine Nitrite Negative (Negative) Urine Bilirubin Negative (Negative) Urine Urobilinogen 2.0 H (0.2-1.0) Ur Leukocyte Esterase Negative (Negative) Urine RBC 0-5 (0-5) /hpf Urine WBC 0-5 (0-5) /hpf Ur Epithelial Cells 0-5 (0-5) /hpf Urine Bacteria Few (FEW) /hpf Urine Mucus Not seen (FEW) /hpf Meds: Medications Generic Name Dose Route Start Last Admin Trade Name Freq PRN Reason Stop Dose Admin Sodium Chloride 10 ml 01/13/17 17:19 Saline Flush FLUSH ASDIRECTED PRN Keep Vein Open - Re-Assessments/Exams Free Text/Narrative Re-Assessment/Exam: CBC reveals WBC of 9,000, upper limits of normal, bandemia. Hemoglobin is 11.3. This was compared with records obtained from [facility]. Hgb on 01/11/17 was 11.3. Lactic acid is WNL. CMP is unremarkable except for mildly elevated liver enzymes. This is a non-specific finding. UA is negative for infection. EKG reveals A. fib 63bpm. No evidence of acute ischemia. Read by Dr. Key. Patient does have history of a.fib. The patient tells me that his pain is better today. He feels he is improving. He has no concerns. He denies symptoms of paresthesias or cauda equina. He is moving himself around in bed with no difficulty. He's required no pain medication while in the ED. I called and spoke to the patient's surgeon Dr. Vasquez. He had no further recommendations. We discussed imaging but with no concerning findings on labs or exam, he agrees that imaging is not indicated. I discussed this with Dr. Corby Key as well and she agrees with plan of care. This was all discussed with family. They were reassured. He will be discharged back to the skilled nursing. Departure - Departure Time of Disposition: 19:08 Disposition: Home, Self-Care 01 Condition: Good Clinical Impression: Post-operative pain - Discharge Information Instructions: Pain Relief Preoperatively and Postoperatively Referrals: Hira Ruby MD [Primary Care Provider] - Forms: ED Department Discharge Additional Instructions: Continue with post-operative instructions Continue hydrocodone for pain Return to ER with new or worsening symptoms - My Orders Last 24 Hours: My Active Orders 01/13/17 17:19 Sodium Chloride 0.9% [Saline Flush] 10 ml FLUSH ASDIRECTED PRN 01/13/17 17:20 Cardiac Monitoring [RC] . DIRECTED EKG Documentation Completion [RC] ASDIRECTED Peripheral IV Care [RC] . DIRECTED Blood Culture x2 Reflex Set [OM.PC] Stat Peripheral IV Insertion Adult [OM.PC] Stat EKG 12 Lead [EK] Stat 01/13/17 17:35 CULTURE BLOOD [BC] Stat 01/13/17 17:45 CULTURE BLOOD [BC] Stat - Assessment/Plan Last 24 Hours: My Active Orders 01/13/17 17:19 Sodium Chloride 0.9% [Saline Flush] 10 ml FLUSH ASDIRECTED PRN 01/13/17 17:20 Cardiac Monitoring [RC] . DIRECTED EKG Documentation Completion [RC] ASDIRECTED Peripheral IV Care [RC] . DIRECTED Blood Culture x2 Reflex Set [OM.PC] Stat Peripheral IV Insertion Adult [OM.PC] Stat EKG 12 Lead [EK] Stat 01/13/17 17:35 CULTURE BLOOD [BC] Stat 01/13/17 17:45 CULTURE BLOOD [BC] Stat
== END 2017-01-13 19:20 | disposition home or self-care (01) ==
LOC: JD.ED 16:47
DX: G89.18 Other acute postprocedural pain (principal); M54.5 Low back pain; I10 Essential (primary) hypertension; E78.00 Pure hypercholesterolemia, unspecified; E11.9 Type 2 diabetes mellitus without complications; Z79.84 Long term (current) use of oral hypoglycemic drugs; Z79.82 Long term (current) use of aspirin; Z79.899 Other long term (current) drug therapy
CPT/HCPCS: 36415; 80053; 81001; 83605; 85025; 87040; 93005; 99284; 99285-25

== ENCOUNTER 2021-04-02 13:26 | Emergency (ER) | payer MEDICARE, BC ==
[2021-04-02] MEDS ORDERED: Sodium Chloride 0.9% 10 ML Syringe FLUSH PRN (14:01)
[2021-04-02] MEDS ORDERED: 50% Dextrose in Water 50 ML Syringe IVPUSH ONE (16:20)
[2021-04-02] MEDS ORDERED: Nitroglycerin/D5W 25 MG/250 ML BOTTLE IV SCH ×2 (18:15→18:56)
[2021-04-02 19:24] VITALS: BP 163/79; PULSE 55
== END 2021-04-02 19:40 ==
LOC: JD.ED 13:26
DX: I48.20 Chronic atrial fibrillation, unspecified (principal); R00.1 Bradycardia, unspecified; E11.649 Type 2 diabetes mellitus with hypoglycemia without coma; R79.89 Other specified abnormal findings of blood chemistry; I16.0 Hypertensive urgency; I45.10 Unspecified right bundle-branch block; E78.00 Pure hypercholesterolemia, unspecified; M19.90 Unspecified osteoarthritis, unspecified site; N40.1 Benign prostatic hyperplasia with lower urinary tract symptoms; R33.8 Other retention of urine; Z79.82 Long term (current) use of aspirin; Z79.84 Long term (current) use of oral hypoglycemic drugs; Z79.899 Other long term (current) drug therapy; Z20.822 Contact with and (suspected) exposure to COVID-19
CPT/HCPCS: 36415; 71045; 80053; 81001; 82947; 83735; 84484; 85025; 86140; 87086; 93005; 96365; 96375; 99285; J3490; U0002; 93010